=== PATIENT | female | born 1985 | race Caucasian/White ===

== ENCOUNTER 2016-04-13 21:28 | Emergency (ER) | payer SELFPAY ==
[~2016-04-13] VITALS: Ht 160 cm; Wt 104.3 kg
[~2016-04-13 21:28] MED LIST: ACET-704 PO; ALBU2.5V13 NEB; BENZ100C PO; CIPR500T PO; CITA20TA9 PO; DICY10CA53 PO; LEVO750T31 PO; LEVO75TA5 PO; NAPR250T2 PO; NAPR500T PO; NITR100C62 PO; ONDA4TAB10 SL; PHEN-318 PO; SULF1TAB24 PO; TRAM50TA PO
[2016-04-13] MEDS ORDERED: ONDANSETRON PF 4 MG/2 ML VIAL. IV ONE (23:00)
[2016-04-13] MEDS ORDERED: IV NORMAL SALINE 1000ML BAG 1,000 ML IV SCH (23:00)
[2016-04-13 23:03] LABS: BILIRUBIN,URINE NEGATIVE (NEG); GLUCOSE,URINE NEGATIVE (NEG); NITRITE,URINE NEGATIVE (NEG); PROTEIN,URINE NEGATIVE (NEG-TRACE); UROBILINOGEN,URINE 0.2 mg/dL (0.2 mg/dL)
[2016-04-13 23:04] LABS: NEG OBC UR NEG; POS OBC UR POS
[2016-04-13 23:24] LABS: BACTERIA,URINE MODERATE /HPF (0-FEW); RBC,URINE 0 /HPF (0-2); SQUAMOUS EPITHELIAL CELL,UR MOD /LPF; WBC,URINE 0 /HPF (0-4)
[2016-04-13 23:38] LABS: BASO % 0 % (0-3); EOS % 1 % (0-3); HEMATOCRIT 47.8 % (36.0-47.0); HEMOGLOBIN 15.7 g/dL (12.0-15.5); LYMPH # 2.6 x10^3/uL (1.0-4.8); LYMPH % 33 % (24-48); MEAN CORPUSCULAR HEMOGLOBIN 29 pg (25-35); MEAN CORPUSCULAR HGB CONC 33 g/dL (31-37); MEAN CORPUSCULAR VOLUME 89 fL (79-100); MONO % 6 % (0-9); NEUT % 60 % (31-73); PLATELET COUNT 272 x10^3/uL (140-400); RED BLOOD COUNT 5.39 x10^6/uL (3.50-5.40); RED CELL DISTRIBUTION WIDTH 13.5 % (11.5-14.5); WHITE BLOOD COUNT 7.8 x10^3/uL (4.0-11.0)
[2016-04-13] MEDS: FENTANYL PF 100 MCG/2 ML VIAL. IV PRN (23:45)
[2016-04-13 23:47] LABS: CALCIUM 9.4 mg/dL (8.5-10.1); CREATININE 0.6 mg/dL (0.6-1.0); GFR 118.2; POTASSIUM 3.6 mmol/L (3.5-5.1)
[2016-04-13 23:53] LABS: ALBUMIN 3.7 g/dL (3.4-5.0); ALBUMIN/GLOBULIN RATIO 0.9 (1.0-1.7); TOTAL BILIRUBIN 0.2 mg/dL (0.2-1.0); TOTAL PROTEIN 7.8 g/dL (6.4-8.2)
[2016-04-14] MEDS: FENTANYL PF 100 MCG/2 ML VIAL. IV PRN (00:31)
[2016-04-14] MEDS ORDERED: ONDA4TAB10 SL (00:37)
[2016-04-14] MEDS ORDERED: PRED20TA PO (00:37)
[2016-04-14] MEDS ORDERED: PROAIR HFA8.5 GM INH (00:37)
[2016-04-14] MEDS ORDERED: HYDR-971 PO (00:37)
--- NOTE | 2016-04-14 00:38 | PHYS DOC ---
Past Medical History Past Medical History: Anxiety, Asthma, Depression, Hypothyroid, Other Additional Past Medical Histor: IUD,right ankle fx, hernia, SEPSIS Past Surgical History: Cholecystectomy, Other Additional Past Surgical Histo: hernia, LYPOMA REMOVAL Smoking: Less than 1pk/day Alcohol Use: Rarely Drug Use: Marijuana Adult General Chief Complaint Chief Complaint: NAUSEA/VOMITING/DIARRHA HPI HPI Patient is a 30 year old female who presents with upper respiratory symptoms starting approximately one week ago. She had low-grade fever with sinus congestion and productive cough. She then developed nausea, vomiting, diarrhea, and abdominal pain approximately 3 days ago. She estimates 5 episodes of vomiting and had episodes of diarrhea and the last 24 hours. She has pain in the periumbilical region, and near her previous hernia repair site. She denies any shortness of breath or sore throat with her other symptoms. Her mother is ill with similar symptoms. Her PCP is Berry Burk. Review of Systems Review of Systems Constitutional: Reports low-grade fever Eyes: Denies change in visual acuity, redness, or eye pain. [] HENT: Denies ear pain or sore throat. Reports nasal congestion. Respiratory: Denies shortness of breath. Reports productive cough. Cardiovascular: Denies chest pain, palpitations or edema. [] GI: Denies bloody stools. Reports nausea, vomiting, diarrhea, and abdominal pain. : Denies dysuria, hematuria or urinary frequency. [] Musculoskeletal: Denies back pain or joint pain. [] Integument: Denies rash or skin lesions. [] Neurologic: Denies focal weakness or sensory changes. Reports frontal sinus headache. Endocrine: Denies polyuria or polydipsia. [] Psych: Denies anxiety or depression. [] All systems reviewed and negative unless otherwise stated in the HPI. Current Medications Current Medications Current Medications Medications (Trade) Dose Ordered Sig/Hermes Start Time Stop Time Status Last Admin Dose Admin Fentanyl Citrate (Fentanyl 2ml Vial) 50 mcg PRN Q15MIN PRN 04/13/16 23:45 04/14/16 23:44 04/14/16 00:31 50 MCG Ondansetron HCl (Zofran) 4 mg 1X ONCE 04/13/16 23:00 04/13/16 23:01 DC 04/13/16 23:18 4 MG Sodium Chloride (Iv Sodium Chloride 0.9% 1000ml Bag) 1,000 ml @ 1,000 mls/hr Q1H 04/13/16 23:00 04/13/16 23:59 DC 04/13/16 23:18 1,000 MLS/HR Allergies Allergies Allergies Coded Allergies Type Severity Reaction Last Updated Verified cephalexin Allergy Intermediate 11/23/14 No latex Allergy Intermediate 11/23/14 No Physical Exam Physical Exam Constitutional: Well developed, well nourished, no acute distress, non-toxic appearance. [] HENT: Normocephalic, atraumatic, bilateral external ears normal, oropharynx moist, no oral exudates, nose normal. Bilateral TMs without erythema or bulging. There is no posterior pharyngeal erythema or tonsillar edema. Bilateral nasal turbinates are swollen and erythematous. Eyes: PERRLA, EOMI, conjunctiva normal, no discharge. [] Neck: Normal range of motion, no tenderness, supple, no stridor. [] Cardiovascular: Heart rate regular rhythm, no murmur [] Lungs & Thorax: Mild expiratory wheezes in the lung bases without rales or rhonchi. Patient is not in respiratory distress. Abdomen: Bowel sounds normal, soft, periumbilical tenderness, no masses, no pulsatile masses. No hernia palpated. Skin: Warm, dry, no erythema, no rash. [] Back: No tenderness, no CVA tenderness. [] Extremities: No tenderness, no cyanosis, no clubbing, ROM intact, no edema. [] Neurologic: Alert and oriented X 3, normal motor function, normal sensory function, no focal deficits noted. [] Psychologic: Affect normal, judgement normal, mood normal. [] Current Patient Data Vital Signs Vital Signs Date Time Temp Pulse Resp B/P Pulse Ox O2 Delivery O2 Flow Rate FiO2 04/14/16 00:31 12 98 Room Air 04/13/16 21:50 98.3 87 168/79 98.3 Lab Values Laboratory Tests Test 04/13/16 21:42 04/13/16 23:15 Urine Collection Type Unknown Urine Color Yellow Urine Clarity Clear Urine pH 6.0 Urine Specific [place] 1.020 Urine Protein Negativemg/dL (NEG-TRACE) Urine Glucose (UA) Negativemg/dL (NEG) Urine Ketones (Stick) Negativemg/dL (NEG) Urine Blood Negative (NEG) Urine Nitrite Negative (NEG) Urine Bilirubin Negative (NEG) Urine Urobilinogen Dipstick 0.2mg/dL (0.2 mg/dL) Urine Leukocyte Esterase Negative (NEG) Urine RBC 0/HPF (0-2) Urine WBC 0/HPF (0-4) Urine Squamous Epithelial Cells Mod/LPF Urine Bacteria Moderate/HPF (0-FEW) Urine Mucus Mod/LPF Urine Test Negative (NEG) White Blood Count 7.8x10^3/uL (4.0-11.0) Red Blood Count 5.39x10^6/uL (3.50-5.40) Hemoglobin 15.7g/dL (12.0-15.5) H Hematocrit 47.8% (36.0-47.0) H Mean Corpuscular Volume 89fL (79-100) Mean Corpuscular Hemoglobin 29pg (25-35) Mean Corpuscular Hemoglobin Concent 33g/dL (31-37) Red Cell Distribution Width 13.5% (11.5-14.5) Platelet Count 272x10^3/uL (140-400) Neutrophils (%) (Auto) 60% (31-73) Lymphocytes (%) (Auto) 33% (24-48) Monocytes (%) (Auto) 6% (0-9) Eosinophils (%) (Auto) 1% (0-3) Basophils (%) (Auto) 0% (0-3) Neutrophils # (Auto) 4.7x10^3uL (1.8-7.7) Lymphocytes # (Auto) 2.6x10^3/uL (1.0-4.8) Monocytes # (Auto) 0.5x10^3/uL (0.0-1.1) Eosinophils # (Auto) 0.1x10^3/uL (0.0-0.7) Basophils # (Auto) 0.0x10^3/uL (0.0-0.2) Sodium Level 141mmol/L (136-145) Potassium Level 3.6mmol/L (3.5-5.1) Chloride Level 104mmol/L (98-107) Carbon Dioxide Level 28mmol/L (21-32) Anion Gap 9 (6-14) Blood Urea Nitrogen 15mg/dL (7-20) Creatinine 0.6mg/dL (0.6-1.0) Estimated GFR (Cockcroft-Gault) 118.2 BUN/Creatinine Ratio 25 (6-20) H Glucose Level 90mg/dL (70-99) Calcium Level 9.4mg/dL (8.5-10.1) Total Bilirubin 0.2mg/dL (0.2-1.0) Aspartate Amino Transferase (AST) 16U/L (15-37) Alanine Aminotransferase (ALT) 25U/L (14-59) Alkaline Phosphatase 71U/L (46-116) Total Protein 7.8g/dL (6.4-8.2) Albumin 3.7g/dL (3.4-5.0) Albumin/Globulin Ratio 0.9 (1.0-1.7) L Lipase 150U/L (73-393) Laboratory Tests 04/13/16 23:15 Laboratory Tests 04/13/16 23:15 EKG EKG [] Radiology/Procedures Radiology/Procedures Acute abdominal x-ray series reviewed and interpreted by myself with Dr. Prasad. There are no focal infiltrates in the lungs or evidence of obstruction in the abdomen. Course & Med Decision Making Course & Med Decision Making Pertinent Labs and Imaging studies reviewed. (See chart for details) Patient is a 30-year-old female who presents with upper respiratory symptoms followed by GI symptoms. On exam, she has mild wheezes in the lungs bilaterally in her abdomen is soft and nonsurgical with periumbilical tenderness. She has a history of periumbilical hernia repair with mesh. There is no palpable hernia on exam. There are no significant laboratory abnormalities. Acute abdomen x-ray does not show any focal infiltrates in the lungs or evidence of obstruction in the abdomen. The patient's symptoms improved with IV fluids, Zofran, and fentanyl. She is discharged home with prescriptions for prednisone, albuterol inhaler, Zofran, and [place]. She is instructed to increase fluids. We discussed eating according to the BRAT diet. Return precautions were discussed. She verbalizes understanding and agrees with plan. Dragon Disclaimer Dragon Disclaimer This electronic medical record was generated, in whole or in part, using a voice recognition dictation system. Departure Departure Impression: Primary Impression: Abdominal pain Additional Impressions: Bronchitis Viral syndrome Disposition: 01 HOME, SELF-CARE Condition: IMPROVED Referrals: BERRY BURK (PCP) Patient Instructions: Abdominal Pain, [id number], Acute Bronchitis, Easy-to- Read, Viral Syndrome Additional Instructions: Your xray and labs did not show any concerning findings. It appears that you have a viral illness causing your symptoms. Please complete all of the prescribed steroids, even if you are feeling better. Please use the prescribed inhaler as needed for cough or shortness of breath. Do not use more often than directed. Please take the prescribed pain medication as directed. Do not drive or operate heavy machinery while taking pain medication. Please follow up with a primary care provider if your symptoms continue. Return to the emergency department if you have severe abdominal pain, continued vomiting, blood in your stools, or other new or concerning symptoms. Scripts Ondansetron (Zofran Odt)4 Mg Tab.rapdis1 Tab SL Q8HRS #10 TAB Prov:ROCIO MALAGON 04/14/16 Hydrocodone/Apap 5-325 ([place] 5-325 Tablet)1 Each Tablet1 Tab PO PRN Q6HRS PRN PAIN #12 TAB Prov:ROCIO MALAGON 04/14/16 Prednisone 20 Mg [id number] Mg PO DAILY 5 Days Prov:ROCIO MALAGON 04/14/16 Albuterol Sulfate (Proair Hfa Inhaler)8.5 Gm Hfa.[id number].ad1 Puff INH Q4HRS PRN SHORTNESS OF BREATH #1 INHALER Prov:ROCIO MALAGON 04/14/16 Problem Qualifiers Primary Impression: Abdominal pain Abdominal location: periumbilical Qualified Code: R10.33 - Periumbilical pain ROCIO MALAGON Apr 14, 2016 00:38
[2016-04-14 00:42] VITALS: BP 128/56
--- NOTE | 2016-04-14 07:52 | RAD ---
Indication abdominal pain. Cough. A single view of the chest was obtained as well as flat and upright films of the abdomen. Comparison is made to a similar series of films 11/09/2015. The heart and pulmonary vessels appear normal. The lungs are clear. There is no pleural fluid or pneumothorax. The appearance of the chest is not changed appreciably compared to the previous exam. There is no free air. The abdominal gas pattern is unremarkable. Mesh material is noted as well as clips in the gallbladder fossa. IMPRESSION: No acute finding seen in the chest or abdomen on plain films
== END 2016-04-14 00:50 | disposition home or self-care (01) ==
LOC: ER 21:28
DX: R10.33 Periumbilical pain (principal); J40 Bronchitis, not specified as acute or chronic; B34.9 Viral infection, unspecified; R11.2 Nausea with vomiting, unspecified; R19.7 Diarrhea, unspecified; F41.9 Anxiety disorder, unspecified; J45.909 Unspecified asthma, uncomplicated; F32.9 Major depressive disorder, single episode, unspecified; E03.9 Hypothyroidism, unspecified; F17.210 Nicotine dependence, cigarettes, uncomplicated; F12.10 Cannabis abuse, uncomplicated; Z90.49 Acquired absence of other specified parts of digestive tract; Z88.1 Allergy status to other antibiotic agents; Z91.040 Latex allergy status
CPT/HCPCS: 36415; 74022; 80053; 81001; 81025; 83690; 85027; 87086; 96361; 96374; 96375; 96376; 99285; J2405; J3010; J7030

== ENCOUNTER 2016-05-24 20:32 | Emergency (ER) | payer SELFPAY ==
[~2016-05-24] VITALS: Ht 160 cm; Wt 106.6 kg
[~2016-05-24 20:32] MED LIST changes: -ALBU2.5V13 NEB; +ALBU2.5V14 NEB; +HYDR-971 PO; +PRED20TA PO; +PROAIR HFA8.5 GM INH
[2016-05-24] MEDS ORDERED: CYCLOBENZAPRINE 10 MG TABLET. PO ONE (20:45)
[2016-05-24 21:05] LABS: BILIRUBIN,URINE SMALL (NEG); GLUCOSE,URINE NEGATIVE (NEG); NITRITE,URINE NEGATIVE (NEG); PH,URINE 5.5; PROTEIN,URINE NEGATIVE (NEG-TRACE)
[2016-05-24 21:10] LABS: BACTERIA,URINE MANY /HPF (0-FEW); RBC,URINE 0 /HPF (0-2); SQUAMOUS EPITHELIAL CELL,UR MANY /LPF; WBC,URINE RARE /HPF (0-4)
--- NOTE | 2016-05-24 21:30 | PHYS DOC ---
Past Medical History Past Medical History: Anxiety, Asthma, Depression, Hypothyroid, Other Additional Past Medical Histor: IUD,right ankle fx, hernia, SEPSIS Past Surgical History: Cholecystectomy, Other Additional Past Surgical Histo: hernia, LYPOMA REMOVAL Alcohol Use: Occasionally Drug Use: Marijuana Adult General Chief Complaint Chief Complaint: ABDOMINAL PAIN HPI HPI 31-year-old female presents with abdominal pain after she pulled her dog and a cat apart from each other during a fight. She states this happened about an hour or so ago. She states the pain is moderate in nature. Sitting up from a lying position makes the symptoms worse. She denies any fever chills sweats nausea or vomiting. She states she is passing gas. She states the pain is around where she had a previous ventral hernia. [] Review of Systems Review of Systems Constitutional: Denies fever or chills [] Eyes: Denies change in visual acuity, redness, or eye pain [] HENT: Denies nasal congestion or sore throat [] Respiratory: Denies cough or shortness of breath [] Cardiovascular: No additional information not addressed in HPI [] GI: Per history of present illness [] : Denies dysuria or hematuria [] Musculoskeletal: Denies back pain or joint pain [] Integument: Denies rash or skin lesions [] Neurologic: Denies headache, focal weakness or sensory changes [] Endocrine: Denies polyuria or polydipsia [] Current Medications Current Medications Current Medications Medications (Trade) Dose Ordered Sig/Hermes Start Time Stop Time Status Last Admin Dose Admin Cyclobenzaprine HCl (Flexeril) 10 mg 1X ONCE 05/24/16 20:45 05/24/16 20:57 DC 05/24/16 21:05 10 MG Allergies Allergies Allergies Coded Allergies Type Severity Reaction Last Updated Verified cephalexin Allergy Intermediate 11/23/14 No latex Allergy Intermediate 11/23/14 No Physical Exam Physical Exam Constitutional: Well developed, well nourished, no acute distress, non-toxic appearance. [] HENT: Normocephalic, atraumatic, bilateral external ears normal, oropharynx moist, no oral exudates, nose normal. [] Eyes: PERRLA, EOMI, conjunctiva normal, no discharge. [] Neck: Normal range of motion, no tenderness, supple, no stridor. [] Cardiovascular:Heart rate regular rhythm, no murmur [] Lungs & Thorax: Bilateral breath sounds clear to auscultation [] Abdomen: Mild tender to palp no obvious hernia palpated good bowel sounds 4 quadrants. [] Skin: Warm, dry, no erythema, no rash. [] Back: No tenderness, no CVA tenderness. [] Extremities: No tenderness, no cyanosis, no clubbing, ROM intact, no edema. [] Neurologic: Alert and oriented X 3, normal motor function, normal sensory function, no focal deficits noted. [] Psychologic: Affect normal, judgement normal, mood normal. [] Current Patient Data Vital Signs Vital Signs Date Time Temp Pulse Resp B/P Pulse Ox O2 Delivery O2 Flow Rate FiO2 05/24/16 20:39 98.0 82 20 142/81 97 Room Air 98.0 Lab Values Laboratory Tests Test 05/24/16 20:50 05/24/16 20:59 Urine Collection Type Void Urine Color Dk yellow Urine Clarity Clear Urine pH 5.5 Urine Specific [place] >=1.030 Urine Protein Negativemg/dL (NEG-TRACE) Urine Glucose (UA) Negativemg/dL (NEG) Urine Ketones (Stick) Negativemg/dL (NEG) Urine Blood Negative (NEG) Urine Nitrite Negative (NEG) Urine Bilirubin Small (NEG) Urine Urobilinogen Dipstick 1.0mg/dL (0.2 mg/dL) Urine Leukocyte Esterase Negative (NEG) Urine RBC 0/HPF (0-2) Urine WBC Rare/HPF (0-4) Urine Squamous Epithelial Cells Many/LPF Urine Bacteria Many/HPF (0-FEW) Urine Mucus Marked/LPF POC Urine HCG, Qualitative Hcg negative (Negative) EKG EKG [] Radiology/Procedures Radiology/Procedures [] Impressions: PROCEDURE: ABDOMEN PELVIS WO CONTRAST CT abdomen and pelvis without contrast Indication: Right lower quadrant pain. Axial imaging through the abdomen and pelvis was performed without contrast. The lung bases are clear. The liver is unremarkable. The gallbladder is surgically absent. The pancreas and spleen are unremarkable. No adrenal mass is detected. The kidneys are unremarkable. The aorta is not aneurysmal. The small and large bowel loops are normal caliber. There are postop changes to the anterior abdominal wall, likely from hernia repair. No recurrent hernia is identified. There is no free fluid. No free air is identified. The bladder and uterus are unremarkable. No acute process is detected. Impression: Unremarkable noncontrast CT of the abdomen and pelvis. No acute abnormality is detected. Course & Med Decision Making Course & Med Decision Making Pertinent Labs and Imaging studies reviewed. (See chart for details) [] Dragon Disclaimer Dragon Disclaimer This electronic medical record was generated, in whole or in part, using a voice recognition dictation system. Departure Departure Impression: Primary Impression: Abdominal pain Disposition: HOME, SELF-CARE Condition: STABLE Referrals: LILLY NIELSON (PCP) Patient Instructions: Abdominal Pain Additional Instructions: Follow with your family doctor this week for recheck. Return to the emergency part with any new or concerning symptoms Scripts Cyclobenzaprine Hcl 10 Mg Tablet1 Tab PO TID PRN MUSCLE PAIN #14 TAB Prov:LAMONT MCDONALD DO 05/24/16 Problem Qualifiers Primary Impression: Abdominal pain Abdominal location: unspecified location Qualified Code: R10.9 - Unspecified abdominal pain LAMONT MCDONALD DO May 24, 2016 21:30
[2016-05-24 22:00] VITALS: BP 101/59
--- NOTE | 2016-05-24 22:05 | RAD ---
CT abdomen and pelvis without contrast Indication: Right lower quadrant pain. Axial imaging through the abdomen and pelvis was performed without contrast. The lung bases are clear. The liver is unremarkable. The gallbladder is surgically absent. The pancreas and spleen are unremarkable. No adrenal mass is detected. The kidneys are unremarkable. The aorta is not aneurysmal. The small and large bowel loops are normal caliber. There are postop changes to the anterior abdominal wall, likely from hernia repair. No recurrent hernia is identified. There is no free fluid. No free air is identified. The bladder and uterus are unremarkable. No acute process is detected. Impression: Unremarkable noncontrast CT of the abdomen and pelvis. No acute abnormality is detected. Electronically signed by: Matt Malik MD (May 24, 2016 22:04:03)
[2016-05-24] MEDS ORDERED: CYCL10TA2 PO (22:08)
== END 2016-05-24 22:20 | disposition home or self-care (01) ==
LOC: ER 20:32
DX: R10.31 Right lower quadrant pain (principal); E03.9 Hypothyroidism, unspecified; F32.9 Major depressive disorder, single episode, unspecified; J45.909 Unspecified asthma, uncomplicated; F41.9 Anxiety disorder, unspecified; F12.10 Cannabis abuse, uncomplicated; Z88.1 Allergy status to other antibiotic agents; Z91.040 Latex allergy status; Z98.890 Other specified postprocedural states; Z90.49 Acquired absence of other specified parts of digestive tract
CPT/HCPCS: 74176; 81001; 81025; 87086; 99285-25

== ENCOUNTER 2016-06-11 15:00 | Emergency (ER) | payer SELFPAY ==
[~2016-06-11] VITALS: Ht 160 cm; Wt 104.3 kg
[~2016-06-11 15:00] MED LIST changes: +CYCL10TA2 PO
--- NOTE | 2016-06-11 16:07 | PHYS DOC ---
Past Medical History Past Medical History: Anxiety, Asthma, Depression, Hypothyroid, Other Additional Past Medical Histor: IUD,right ankle fx, hernia, SEPSIS Past Surgical History: Cholecystectomy, Other Additional Past Surgical Histo: hernia, LYPOMA REMOVAL Additional Information: 0.5 PPD Alcohol Use: Occasionally Drug Use: Marijuana Adult General Chief Complaint Chief Complaint: KNEE INJURY [facility] HPI Patient is a 31 year old female who presents with complaint of low back pain and left knee pain after suffering a fall yesterday morning. Patient states that she had been drinking night and stop drinking at 0130 on Monday morning. Patient admits that she was drinking [employer] ice tea beverages. Patient states that she does not remember falling but was told that she " blacked out" by her father and brother. The patient states that she has been having pain in her low back, tailbone, and left knee ever since. Patient has been ambulatory but states that she has not been able to bear full weight on her knee due to pain. Patient currently rates her pain as 10 out of 10. Patient states that she has taken ibuprofen with no relief in symptoms. Patient denied any associated chest pain and has not had any syncopal episodes prior or since the previous episode. Review of Systems Review of Systems Constitutional: Denies fever or chills [] Eyes: Denies change in visual acuity, redness, or eye pain [] HENT: Denies nasal congestion or sore throat [] Respiratory: Denies cough or shortness of breath [] Cardiovascular: No additional information not addressed in HPI [] GI: Denies abdominal pain, nausea, vomiting, bloody stools or diarrhea [] : Denies dysuria or hematuria [] Musculoskeletal: Left knee pain, low back pain, tailbone pain [] Integument: Denies rash or skin lesions [] Neurologic: Headache, denies focal weakness or sensory changes [] Allergies Allergies Allergies Coded Allergies Type Severity Reaction Last Updated Verified cephalexin Allergy Intermediate 11/23/14 No latex Allergy Intermediate 11/23/14 No Physical Exam Physical Exam Constitutional: Alert, obese, afebrile, no acute distress. [] HENT: Normocephalic, atraumatic, bilateral external ears normal, oropharynx moist, no oral exudates, nose normal. [] Eyes: PERRLA, EOMI, conjunctiva normal, no discharge. [] Neck: Normal range of motion, no tenderness, supple, no stridor. [] Cardiovascular:Heart rate regular rhythm, no murmur [] Lungs & Thorax: Bilateral breath sounds clear to auscultation [] Abdomen: Bowel sounds normal, soft, no tenderness, no masses, no pulsatile masses. [] Skin: Warm, dry, no erythema, no rash. [] Back: Lower lumbar midline tenderness to palpation, mild paraspinous muscle tenderness bilaterally, no flank ecchymosis. [] Extremities: Anterior ecchymosis over left patella, no ligamentous instability, negative Britton test, full passive range of motion present, tenderness palpation over anterior joint space, no cyanosis, no clubbing, ROM intact, no edema. [] Neurologic: Alert and oriented X 3, normal motor function, normal sensory function, no focal deficits noted. [] Current Patient Data Vital Signs Vital Signs Date Time Temp Pulse Resp B/P Pulse Ox O2 Delivery O2 Flow Rate FiO2 06/11/16 16:51 82 16 117/62 99 06/11/16 15:05 97.5 Room Air 97.5 EKG EKG Not performed [] Radiology/Procedures Radiology/Procedures 3 view left knee x-ray interpreted by me: No fractures, normal alignment mild to moderate medial joint space narrowing 3 view lumbar series interpreted by me: Normal alignment, no fractures, normal soft tissue [] Course & Med Decision Making Course & Med Decision Making Pertinent Labs and Imaging studies reviewed. (See chart for details) Patient's x-rays negative for acute injury. The patient's syncopal episode likely due to alcohol intoxication that she admitted to. Patient will be treated with ibuprofen and Flexeril to be used at nighttime before bed. Advised follow-up in one week primary doctor if symptoms not improving and return to emergency department for any worsening symptoms. Patient voiced understanding and in agreement with treatment plan. Dragon Disclaimer Dragon Disclaimer This electronic medical record was generated, in whole or in part, using a voice recognition dictation system. Departure Departure Impression: Primary Impression: Contusion of left knee Additional Impression: Back pain Disposition: 01 HOME, SELF-CARE Condition: IMPROVED Referrals: LILLY NIELSON (PCP) Patient Instructions: Back Pain, Adult, Contusion Additional Instructions: Follow-up to primary doctor in 1 week. Return to the emergency department for any worsening symptoms. Scripts Cyclobenzaprine Hcl 10 Mg Tablet1 Tab PO QHS #15 TAB Prov:EUFEMIA LARA MD 06/11/16 Ibuprofen 600 Mg [id number] Mg PO Q6HRS PRN INFLAMMATION #30 TAB Prov:EUFEMIA LARA MD 06/11/16 Problem Qualifiers Primary Impression: Contusion of left knee Encounter type: initial encounter Qualified Code: S80.02XA - Contusion of left knee, initial encounter Additional Impression: Back pain Back pain location: low back pain Chronicity: acute Back pain laterality: midline Sciatica presence: without sciatica Qualified Code: M54.5 - Low back pain EUFEMIA LARA MD Jun 11, 2016 16:07
[2016-06-11] MEDS ORDERED: CYCL10TA2 PO (16:40)
[2016-06-11] MEDS ORDERED: IBUP-1007 PO (16:40)
[2016-06-11 16:51] VITALS: BP 117/62
--- NOTE | 2016-06-12 09:08 | RAD ---
Indication: Trauma, fall 2 days ago. Left-sided pain. Technique: 3 views of the left knee are submitted for review. No comparison is available. Findings: There is no fracture or dislocation. There is no joint effusion or soft tissue swelling. Impression: Negative for fracture.
--- NOTE | 2016-06-12 09:09 | RAD ---
Indication: Trauma, fall 2 days ago. Low back pain. Technique: 3 views of the lumbar spine are submitted for review. No comparison is available. Findings: There is no acute fracture or dislocation. Vertebral body height and interspace height are maintained. Postsurgical findings of hernia repair are noted. Impression: Negative for fracture.
== END 2016-06-11 16:52 | disposition home or self-care (01) ==
LOC: ER 15:00
DX: S80.02XA Contusion of left knee, initial encounter (principal); J45.909 Unspecified asthma, uncomplicated; E78.00 Pure hypercholesterolemia, unspecified; F17.200 Nicotine dependence, unspecified, uncomplicated; F12.10 Cannabis abuse, uncomplicated; Z88.1 Allergy status to other antibiotic agents; Z91.040 Latex allergy status; W19.XXXA Unspecified fall, initial encounter; Y93.89 Activity, other specified; Y99.8 Other external cause status; Y92.89 Other specified places as the place of occurrence of the external cause
CPT/HCPCS: 72100; 73562; 99284

== ENCOUNTER 2016-06-26 15:25 | Emergency (ER) | payer SELFPAY ==
[~2016-06-26] VITALS: Ht 160 cm; Wt 104.3 kg
[~2016-06-26 15:25] MED LIST changes: +IBUP-1007 PO
--- NOTE | 2016-06-26 16:02 | PHYS DOC ---
Past Medical History Past Medical History: Anxiety, Asthma, Depression, Hypothyroid, Other Additional Past Medical Histor: IUD,right ankle fx, hernia, SEPSIS Past Surgical History: Cholecystectomy, Other Additional Past Surgical Histo: hernia, LYPOMA REMOVAL Alcohol Use: Occasionally Drug Use: Marijuana Adult General Chief Complaint Chief Complaint: ANIMAL BITE HPI HPI Patient is a 31 year old female presents emergency Department today with complaint of a dog bite to her left thumb. Patient states this happened within the past hour. Patient states she was bitten by her own dog. Patient reports dose immunizations are up-to-date. She states that last tetanus shot was approximate 6 years ago for her. She denies any additional injuries or concerns at this time. Review of Systems Review of Systems Constitutional: Denies fever or chills [] Eyes: Denies change in visual acuity, redness, or eye pain [] HENT: Denies nasal congestion or sore throat [] Respiratory: Denies cough or shortness of breath [] Cardiovascular: No additional information not addressed in HPI [] GI: Denies abdominal pain, nausea, vomiting, bloody stools or diarrhea [] : Denies dysuria or hematuria [] Musculoskeletal: Denies back pain or joint pain [] Integument: Denies rash or skin lesions [] Neurologic: Denies headache, focal weakness or sensory changes [] Endocrine: Denies polyuria or polydipsia [] Current Medications Current Medications Current Medications Medications (Trade) Dose Ordered Sig/Hermes Start Time Stop Time Status Last Admin Dose Admin Acetaminophen/ Hydrocodone Bitart (Lortab 5/325) 1 tab 1X ONCE 06/26/16 16:30 06/26/16 16:31 Diphtheria/ Tetanus/Acell Pertussis (Boostrix) 0.5 ml ONCE ONCE 06/26/16 16:30 06/26/16 16:31 Allergies Allergies Allergies Coded Allergies Type Severity Reaction Last Updated Verified cephalexin Allergy Intermediate 11/23/14 No latex Allergy Intermediate 11/23/14 No Physical Exam Physical Exam Constitutional: Well developed, well nourished, mild distress, non-toxic appearance. HENT: Normocephalic, atraumatic, bilateral external ears normal, oropharynx moist, no oral exudates, nose normal. [] Eyes: PERRLA, EOMI, conjunctiva normal, no discharge. [] Neck: Normal range of motion, no tenderness, supple, no stridor. [] Cardiovascular:Heart rate regular rhythm, no murmur [] Lungs & Thorax: Bilateral breath sounds clear to auscultation [] Abdomen: Bowel sounds normal, soft, no tenderness, no masses, no pulsatile masses. [] Skin: Warm, dry, no erythema, no rash. [] Back: No tenderness, no CVA tenderness. [] Extremities: Left thumb with multiple small puncture wounds to the dorsum and palmar surface. This involves both the proximal distal phalanx. There is no active bleeding. Flexor and extensor mechanism is intact. Patient is also able to circumduct her thumb. There is no nail bed injuries. Thumb is neurovascularly intact with capillary refill less than 2 seconds. Neurologic: Alert and oriented X 3, normal motor function, normal sensory function, no focal deficits noted. [] Psychologic: Affect normal, judgement normal, mood normal. [] EKG EKG [] Radiology/Procedures Radiology/Procedures Reviews of left thumb were performed with adequate technique. There is no evidence of acute bony injury or retained radiopaque foreign bodies in the subcutaneous tissue. Course & Med Decision Making Course & Med Decision Making Pertinent Labs and Imaging studies reviewed. (See chart for details) [] Dragon Disclaimer Dragon Disclaimer This electronic medical record was generated, in whole or in part, using a voice recognition dictation system. Departure Departure Impression: Primary Impression: Dog bite of left thumb Disposition: HOME, SELF-CARE Condition: GOOD Referrals: LILLY NIELSON (PCP) Patient Instructions: Animal Bite, [id number], Diphtheria Toxoid; Tetanus Toxoid Adsorbed, DT, Td Additional Instructions: 1. Take the medication as prescribed. 2. Review the discharge instructions provided for self-care and reasons to return the emergency department. 3. Contact your primary care doctor Monday morning to schedule follow-up appointment for wound check by Monday or . Scripts Hydrocodone/Apap 5-325 ([place] 5-325 Tablet)1 Each Tablet1 Tab PO PRN Q6HRS PRN PAIN #15 TAB Ref 0 Prov:YOHANA LOWERY 06/26/16 Amoxicillin/Potassium Clav (Augmentin 875-125 Tablet)1 Each Tablet1 Tab PO BID # 14 TAB Prov:YOHANA LOWERY 4/2/17 Problem Qualifiers Primary Impression: Dog bite of left thumb Encounter type: initial encounter Qualified Code: S61.052A - Open bite of left thumb without damage to nail, initial encounter YOHANA LOWERY Jun 26, 2016 16:02
--- NOTE | 2016-06-26 16:23 | RAD ---
EXAM: Left thumb, 3 views. HISTORY: Laceration. COMPARISON: None. FINDINGS: Frontal, lateral and oblique views of the left thumb are obtained. There is no fracture, dislocation or subluxation. No foreign body is seen. IMPRESSION: No acute osseous finding no evidence of a radiodense foreign body.
[2016-06-26] MEDS ORDERED: AMOX1TAB61 PO (16:26)
[2016-06-26] MEDS ORDERED: HYDR-971 PO (16:26)
[2016-06-26] MEDS ORDERED: DIPHTH,PERTUSS(ACELL),TET TOX 0.5 ML DISP.SYRIN. VAX IM ONE (16:30)
[2016-06-26] MEDS ORDERED: HYDROCODONE/APAP 5/325MG TABLET. PO ONE (16:30)
[2016-06-26 16:32] VITALS: BP 144/79
== END 2016-06-26 17:23 | disposition home or self-care (01) ==
LOC: ER 15:25
DX: S61.052A Open bite of left thumb without damage to nail, initial encounter (principal); J45.909 Unspecified asthma, uncomplicated; E03.9 Hypothyroidism, unspecified; F12.10 Cannabis abuse, uncomplicated; Z88.1 Allergy status to other antibiotic agents; Z91.040 Latex allergy status; W54.0XXA Bitten by dog, initial encounter; Y93.89 Activity, other specified; Y92.89 Other specified places as the place of occurrence of the external cause; Y99.8 Other external cause status
CPT/HCPCS: 73140; 90471; 90715; 99284-25

== ENCOUNTER 2016-09-11 04:18 | Emergency (ER) | payer SELFPAY ==
[~2016-09-11] VITALS: Ht 160 cm; Wt 104.3 kg
[~2016-09-11 04:18] MED LIST changes: +AMOX1TAB61 PO
[2016-09-11 04:48] LABS: BASO % 1 % (0-3); EOS % 1 % (0-3); HEMATOCRIT 42.5 % (36.0-47.0); HEMOGLOBIN 14.2 g/dL (12.0-15.5); LYMPH # 1.8 x10^3/uL (1.0-4.8); LYMPH % 32 % (24-48); MEAN CORPUSCULAR HEMOGLOBIN 31 pg (25-35); MEAN CORPUSCULAR HGB CONC 34 g/dL (31-37); MEAN CORPUSCULAR VOLUME 91 fL (79-100); MONO % 7 % (0-9); NEUT % 60 % (31-73); PLATELET COUNT 228 x10^3/uL (140-400); RED BLOOD COUNT 4.65 x10^6/uL (3.50-5.40); RED CELL DISTRIBUTION WIDTH 14.5 % (11.5-14.5); WHITE BLOOD COUNT 5.7 x10^3/uL (4.0-11.0)
[2016-09-11 04:50] LABS: BILIRUBIN,URINE NEGATIVE (NEG); GLUCOSE,URINE NEGATIVE (NEG); NITRITE,URINE NEGATIVE (NEG); PH,URINE 7.5; PROTEIN,URINE NEGATIVE (NEG-TRACE); UROBILINOGEN,URINE 0.2 mg/dL (0.2 mg/dL)
[2016-09-11 04:57] LABS: CALCIUM 9.3 mg/dL (8.5-10.1); CREATININE 0.6 mg/dL (0.6-1.0); GFR 117.4; POTASSIUM 3.7 mmol/L (3.5-5.1)
[2016-09-11 04:57] LABS: BACTERIA,URINE 0 /HPF (0-FEW); RBC,URINE OCC /HPF (0-2); SQUAMOUS EPITHELIAL CELL,UR MANY /LPF; WBC,URINE 0 /HPF (0-4)
[2016-09-11] MEDS ORDERED: KETOROLAC TROMETHAMINE 30 MG/ML INJ. IV ONE (05:00)
[2016-09-11] MEDS ORDERED: KETOROLAC 15 MG/ML VIAL. IV ONE (05:00)
[2016-09-11] MEDS ORDERED: ONDANSETRON PF 4 MG/2 ML VIAL. IV ONE (05:00)
[2016-09-11 05:03] LABS: ALBUMIN 3.6 g/dL (3.4-5.0); ALBUMIN/GLOBULIN RATIO 0.9 (1.0-1.7); TOTAL BILIRUBIN 0.2 mg/dL (0.2-1.0); TOTAL PROTEIN 7.7 g/dL (6.4-8.2)
--- NOTE | 2016-09-11 05:43 | RAD ---
INDICATION: llq pain x few days COMPARISON: May 24, 2016 TECHNIQUE: Axial CT images were obtained through the abdomen and pelvis without intravenous contrast. Limited assessment of solid organ structures and vasculature secondary to lack of intravenous contrast. One or more of the following individualized dose reduction techniques were utilized for this examination: 1. Automated exposure control; 2. Adjustment of the mA and/or kV according to patient size; 3. Use of iterative reconstruction technique. FINDINGS: Abdomen: Chest Base: Partially imaged without gross abnormality. Vessels: No abdominal aortic aneurysm. Liver/Biliary: No intrahepatic biliary duct dilation. Pancreas: No peripancreatic edema. Spleen: Normal. Kidneys/Adrenal: No hydronephrosis. GI: No free air. No bowel dilation to suggest obstruction. Appendix does not appear grossly inflamed Pelvis: Bladder: No definite adjacent inflammation. Postoperative changes anterior abdominal wall. IMPRESSION: 1. No evidence of hydronephrosis, bowel obstruction or appendicitis. Electronically signed by: Braxton Carrero MD (09/11/2016 5:40 AM)
[2016-09-11] MEDS ORDERED: ONDA4TAB10 SL (05:51)
[2016-09-11] MEDS ORDERED: NAPR500T PO (05:51)
--- NOTE | 2016-09-11 05:51 | PHYS DOC ---
Past Medical History Past Medical History: Anxiety, Asthma, Depression, Hypothyroid, Other Additional Past Medical Histor: right ankle fx, hernia, SEPSIS Past Surgical History: Cholecystectomy, Other Additional Past Surgical Histo: hernia, LYPOMA REMOVAL Alcohol Use: Rarely Drug Use: Marijuana Adult General Chief Complaint Chief Complaint: ABDOMINAL PAIN HPI HPI Patient is a 31 year old female with a history significant for ovarian cysts is status post umbilical hernia repair in the past presents to the ER today complaining of left lower quadrant abdominal pain 1 day. Patient denies any fevers shakes chills nausea vomiting diarrhea chest pain or shortness of breath. Patient has a dysuria frequency or urgency. Patient has any cough cold runny nose. Patient reports the pain is cramping and feels very similar to the pain she had when she was diagnosed with an ovarian cyst approximately 2 years ago. Patient reports she is tolerating by mouth's well. Patient's physical exam was significant for tenderness to palpation to her left groin and left lower abdomen. Patient has no psoas or obturator signs. Patient has no rebound or guarding. Patient has normal active bowel sounds. Patient does not present with signs or symptoms that'll be consistent with an acute surgical abdomen. Patient's workup in the ER consisted of normal labs including a normal CBC CMP and urinalysis. Patient's CT scan of the abdomen pelvis were unremarkable for any acute pathology. Patient was given Toradol and Zofran in the ER with some relief in her discomfort. Assessment and plan A bowel pain of unclear etiology. Patient's clinically and hemodynamically stable. Patient will be discharged home in stable condition with a prescription for Naprosyn and Zofran to assist her with her pain. Patient does not present with an acute surgical abdomen. There is no indication for further ER for inpatient workup for this patient's abdominal discomfort at this time. Patient will need to follow-up with her primary care physician and the pain persists. Review of Systems Review of Systems Constitutional: Denies fever or chills [] Eyes: Denies change in visual acuity, redness, or eye pain [] HENT: Denies nasal congestion or sore throat [] All other review systems are negative except as documented in the history of present illness portion. Current Medications Current Medications Current Medications Medications (Trade) Dose Ordered Sig/Hermes Start Time Stop Time Status Last Admin Dose Admin Ketorolac Tromethamine (Toradol) 30 mg 1X ONCE 09/11/16 05:00 09/11/16 05:01 DC 09/11/16 05:08 30 MG Ondansetron HCl (Zofran) 4 mg 1X ONCE 09/11/16 05:00 09/11/16 05:01 DC 09/11/16 05:08 4 MG Allergies Allergies Allergies Coded Allergies Type Severity Reaction Last Updated Verified cephalexin Allergy Intermediate 11/23/14 No latex Allergy Intermediate 11/23/14 No Physical Exam Physical Exam Constitutional: Well developed, well nourished, no acute distress, non-toxic appearance. [] HENT: Normocephalic, atraumatic, bilateral external ears normal, oropharynx moist, no oral exudates, nose normal. [] Eyes: PERRLA, EOMI, conjunctiva normal, no discharge. [] Neck: Normal range of motion, no tenderness, supple, no stridor. [] Cardiovascular:Heart rate regular rhythm, no murmur [] Lungs & Thorax: Bilateral breath sounds clear to auscultation [] Abdomen: Bowel sounds normal, soft,llq tenderness, no masses, no pulsatile masses. [] Skin: Warm, dry, no erythema, no rash. [] Back: No tenderness, no CVA tenderness. [] Extremities: No tenderness, no cyanosis, no clubbing, ROM intact, no edema. [] Neurologic: Alert and oriented X 3, normal motor function, normal sensory function, no focal deficits noted. [] Psychologic: Affect normal, judgement normal, mood normal. [] Current Patient Data Vital Signs Vital Signs Date Time Temp Pulse Resp B/P (MAP) Pulse Ox O2 Delivery O2 Flow Rate FiO2 09/11/16 04:30 98.0 72 20 154/90 (111) 96 Room Air 98.0 Lab Values Laboratory Tests Test 09/11/16 03:39 09/11/16 04:30 09/11/16 04:35 POC Urine HCG, Qualitative Hcg negative (Negative) Urine Collection Type Unknown Urine Color Yellow Urine Clarity Clear Urine pH 7.5 Urine Specific [place] 1.010 Urine Protein Negative mg/dL (NEG-TRACE) Urine Glucose (UA) Negative mg/dL (NEG) Urine Ketones (Stick) Negative mg/dL (NEG) Urine Blood Negative (NEG) Urine Nitrite Negative (NEG) Urine Bilirubin Negative (NEG) Urine Urobilinogen Dipstick 0.2 mg/dL (0.2 mg/dL) Urine Leukocyte Esterase Negative (NEG) Urine RBC Occ /HPF (0-2) Urine WBC 0 /HPF (0-4) Urine Squamous Epithelial Cells Many /LPF Urine Amorphous Sediment Present /HPF Urine Bacteria 0 /HPF (0-FEW) White Blood Count 5.7 x10^3/uL (4.0-11.0) Red Blood Count 4.65 x10^6/uL (3.50-5.40) Hemoglobin 14.2 g/dL (12.0-15.5) Hematocrit 42.5 % (36.0-47.0) Mean Corpuscular Volume 91 fL (79-100) Mean Corpuscular Hemoglobin 31 pg (25-35) Mean Corpuscular Hemoglobin Concent 34 g/dL (31-37) Red Cell Distribution Width 14.5 % (11.5-14.5) Platelet Count 228 x10^3/uL (140-400) Neutrophils (%) (Auto) 60 % (31-73) Lymphocytes (%) (Auto) 32 % (24-48) Monocytes (%) (Auto) 7 % (0-9) Eosinophils (%) (Auto) 1 % (0-3) Basophils (%) (Auto) 1 % (0-3) Neutrophils # (Auto) 3.5 x10^3uL (1.8-7.7) Lymphocytes # (Auto) 1.8 x10^3/uL (1.0-4.8) Monocytes # (Auto) 0.4 x10^3/uL (0.0-1.1) Eosinophils # (Auto) 0.0 x10^3/uL (0.0-0.7) Basophils # (Auto) 0.0 x10^3/uL (0.0-0.2) Sodium Level 141 mmol/L (136-145) Potassium Level 3.7 mmol/L (3.5-5.1) Chloride Level 104 mmol/L (98-107) Carbon Dioxide Level 26 mmol/L (21-32) Anion Gap 11 (6-14) Blood Urea Nitrogen 12 mg/dL (7-20) Creatinine 0.6 mg/dL (0.6-1.0) Estimated GFR (Cockcroft-Gault) 117.4 BUN/Creatinine Ratio 20 (6-20) Glucose Level 104 mg/dL (70-99) H Calcium Level 9.3 mg/dL (8.5-10.1) Total Bilirubin 0.2 mg/dL (0.2-1.0) Aspartate Amino Transferase (AST) 23 U/L (15-37) Alanine Aminotransferase (ALT) 33 U/L (14-59) Alkaline Phosphatase 73 U/L (46-116) Total Protein 7.7 g/dL (6.4-8.2) Albumin 3.6 g/dL (3.4-5.0) Albumin/Globulin Ratio 0.9 (1.0-1.7) L Laboratory Tests 09/11/16 04:35 Laboratory Tests 09/11/16 04:35 EKG EKG [] Radiology/Procedures Radiology/Procedures [] Course & Med Decision Making Course & Med Decision Making Pertinent Labs and Imaging studies reviewed. (See chart for details) [] Dragon Disclaimer Dragon Disclaimer This electronic medical record was generated, in whole or in part, using a voice recognition dictation system. Departure Departure Impression: Primary Impression: Abdominal pain Disposition: HOME, SELF-CARE Condition: IMPROVED Referrals: LILLY NIELSON (PCP) Patient Instructions: Abdominal Pain (Nonspecific) Scripts Ondansetron (ZOFRAN ODT) 4 Mg Tab.rapdis 1 TAB SL Q6HRS Y for NAUSEA, #12 TAB Prov: IVIS VEGA MD 09/11/16 Naproxen (NAPROSYN) 500 Mg Tablet 500 MG PO BID, #20 TAB Prov: IVIS VEGA MD 09/11/16 IVIS VEGA MD Sep 11, 2016 05:51
[2016-09-11 05:59] VITALS: BP 111/55
== END 2016-09-11 06:00 | disposition home or self-care (01) ==
LOC: ER 04:18
DX: R10.32 Left lower quadrant pain (principal); E03.9 Hypothyroidism, unspecified; F32.9 Major depressive disorder, single episode, unspecified; F41.9 Anxiety disorder, unspecified; J45.909 Unspecified asthma, uncomplicated; F12.10 Cannabis abuse, uncomplicated; Z90.49 Acquired absence of other specified parts of digestive tract; Z91.040 Latex allergy status; Z88.8 Allergy status to other drugs, medicaments and biological substances
CPT/HCPCS: 36415; 74176; 80053; 81001; 81025; 85027; 96374; 96375; 99285; J1885; J2405

== ENCOUNTER 2016-09-28 05:08 | Emergency (ER) | payer SELFPAY ==
[~2016-09-28] VITALS: Ht 167.6 cm; Wt 104.3 kg
[2016-09-28 05:10] VITALS: BP 134/75
[2016-09-28] MEDS ORDERED: ONDANSETRON PF 4 MG/2 ML VIAL. ONE (05:38)
[2016-09-28] MEDS ORDERED: ONDANSETRON PF 4 MG/2 ML VIAL. IV ONE (06:00)
[2016-09-28] MEDS ORDERED: IV NORMAL SALINE 1000ML BAG 1,000 ML IV ONE (06:00)
--- NOTE | 2016-09-28 07:23 | PHYS DOC ---
Past Medical History Past Medical History: Anxiety, Asthma, Depression, Hypothyroid, Other Additional Past Medical Histor: right ankle fx, hernia, SEPSIS Past Surgical History: Cholecystectomy, Other Additional Past Surgical Histo: hernia, LYPOMA REMOVAL Alcohol Use: Rarely Drug Use: Marijuana Adult General Chief Complaint Chief Complaint: GI PROBLEM HPI HPI 31-year-old female presenting to the emergency department today feeling nauseous. She denies any other symptoms. She has been drinking last night. She denies suicidal or homicidal ideation. She is able to walk without difficulty and is not slurring her speech. Onset today. Location generalized. Duration intermittent. No alleviating factors. Review of systems is negative for chest pain shortness of breath fevers chills vomiting dark stools abdominal pain rashes or any traumatic injuries. All other review of systems is negative unless otherwise noted in history of present illness. ED course: 31-year-old female presenting to the emergency department with nausea after drinking. Reviewed the patient's vital signs: Afebrile with normal heart rate. Unremarkable vital signs. Pertinent physical exam findings showed a soft nontender abdomen. Clear lungs auscultation. Normal heart sounds. Otherwise completely unremarkable. The patient was able to walk without difficulty and was not slurring her speech. She is not homicidal or suicidal and was subsequently discharged home. The patient was then discharged home in stable condition to follow up with their primary care physician over the next 2- 3 days. They were to return if their symptoms worsened or if they were concerned for any reason. [id number] discharge instructions and return precautions were given. Patient's questions were answered to their satisfaction. Patient is comfortable plan. Review of Systems Review of Systems SEE ABOVE. Current Medications Current Medications Current Medications Medications (Trade) Dose Ordered Sig/Hermes Start Time Stop Time Status Last Admin Dose Admin Ondansetron HCl (Zofran) 4 mg 1X ONCE 09/28/16 06:00 09/28/16 06:01 DC 09/28/16 05:53 4 MG Sodium Chloride 1,000 ml @ 1,000 mls/hr 1X ONCE 09/28/16 06:00 09/28/16 06:59 DC 09/28/16 05:53 1,000 MLS/HR Allergies Allergies Allergies Coded Allergies Type Severity Reaction Last Updated Verified cephalexin Allergy Intermediate 11/23/14 No latex Allergy Intermediate 11/23/14 No Physical Exam Physical Exam Constitutional: Well developed, well nourished, no acute distress, non-toxic appearance. [] HENT: Normocephalic, atraumatic, bilateral external ears normal, oropharynx moist, no oral exudates, nose normal. [] Eyes: PERRLA, EOMI, conjunctiva normal, no discharge. [] Neck: Normal range of motion, no tenderness, supple, no stridor. [] Cardiovascular:Heart rate regular rhythm, no murmur [] Lungs & Thorax: Bilateral breath sounds clear to auscultation [] Abdomen: Bowel sounds normal, soft, no tenderness, no masses, no pulsatile masses. [] Skin: Warm, dry, no erythema, no rash. [] Back: No tenderness, no CVA tenderness. [] Extremities: No tenderness, no cyanosis, no clubbing, ROM intact, no edema. [] Neurologic: Alert and oriented X 3, normal motor function, normal sensory function, no focal deficits noted. [] Psychologic: Affect normal, judgement normal, mood normal. [] Current Patient Data Vital Signs Vital Signs Date Time Temp Pulse Resp B/P (MAP) Pulse Ox O2 Delivery O2 Flow Rate FiO2 09/28/16 05:10 98.5 84 20 134/75 (94) 99 Room Air 98.5 EKG EKG [] Radiology/Procedures Radiology/Procedures [] Course & Med Decision Making Course & Med Decision Making Pertinent Labs and Imaging studies reviewed. (See chart for details) [] Dragon Disclaimer Dragon Disclaimer This electronic medical record was generated, in whole or in part, using a voice recognition dictation system. Departure Departure Impression: Primary Impression: Nausea Disposition: 01 HOME, SELF-CARE Condition: STABLE Referrals: LILLY INELSON (PCP) Patient Instructions: Nausea, Adult Additional Instructions: Thank you for allowing us to participate in your care today. Followup with your primary care physician in 3 days if your symptoms do not improve. Call your Primary Doctor tomorrow and inform them of your visit today. If you do not have a primary care provider you can ask for a list of our primary care providers. Return to the emergency department you have any new or concerning findings. This should be evaluated by the primary care physician and any necessary consulting services for continued management within a few days after discharge. Return to emergency room if you have any new or concerning symptoms including but not limited to fever, chills, nausea, vomiting, intractable pain, any new rashes, chest pain, shortness of air, uncontrolled bleeding, difficulty breathing, and/or vision loss. RENEA LARSEN MD Sep 28, 2016 07:22
== END 2016-09-28 07:33 | disposition home or self-care (01) ==
LOC: ER 05:08
DX: R11.0 Nausea (principal); J45.909 Unspecified asthma, uncomplicated; E03.9 Hypothyroidism, unspecified; F32.9 Major depressive disorder, single episode, unspecified; F41.9 Anxiety disorder, unspecified; F12.10 Cannabis abuse, uncomplicated; Z90.49 Acquired absence of other specified parts of digestive tract; Z98.890 Other specified postprocedural states; Z88.1 Allergy status to other antibiotic agents; Z91.040 Latex allergy status
CPT/HCPCS: 81025; 96361; 96374; 99285; J2405; J7030

== ENCOUNTER 2016-12-08 21:59 | Emergency (ER) | payer SELFPAY ==
[~2016-12-08] VITALS: Ht 160 cm; Wt 108.9 kg
[~2016-12-08 21:59] MED LIST changes: -NAPR250T2 PO; +NAPR250T6 PO
[2016-12-08 22:17] LABS: BILIRUBIN,URINE NEGATIVE (NEG); GLUCOSE,URINE NEGATIVE (NEG); NITRITE,URINE NEGATIVE (NEG); PH,URINE 5.5; PROTEIN,URINE NEGATIVE (NEG-TRACE); UROBILINOGEN,URINE 0.2 mg/dL (0.2 mg/dL)
[2016-12-08 22:23] LABS: BASO % 1 % (0-3); EOS % 1 % (0-3); HEMATOCRIT 42.4 % (36.0-47.0); HEMOGLOBIN 14.3 g/dL (12.0-15.5); LYMPH # 1.5 x10^3/uL (1.0-4.8); LYMPH % 26 % (24-48); MEAN CORPUSCULAR HEMOGLOBIN 31 pg (25-35); MEAN CORPUSCULAR HGB CONC 34 g/dL (31-37); MEAN CORPUSCULAR VOLUME 92 fL (79-100); MONO % 6 % (0-9); NEUT % 67 % (31-73); PLATELET COUNT 212 x10^3/uL (140-400); RED BLOOD COUNT 4.59 x10^6/uL (3.50-5.40); RED CELL DISTRIBUTION WIDTH 13.9 % (11.5-14.5); WHITE BLOOD COUNT 5.8 x10^3/uL (4.0-11.0)
[2016-12-08 22:30] VITALS: BP 130/58
[2016-12-08] MEDS ORDERED: HYDROmorphone 2 MG/ML VIAL IV/SQ PRN (22:30)
[2016-12-08 22:32] LABS: CALCIUM 9.2 mg/dL (8.5-10.1); CREATININE 0.5 mg/dL (0.6-1.0); GFR 144.9; POTASSIUM 3.4 mmol/L (3.5-5.1)
[2016-12-08 22:39] LABS: BACTERIA,URINE FEW /HPF (0-FEW); RBC,URINE 0 /HPF (0-2); SQUAMOUS EPITHELIAL CELL,UR MOD /LPF; WBC,URINE OCC /HPF (0-4)
[2016-12-08 22:41] LABS: NEG OBC FOB NEG; POS OBC FOB POS
[2016-12-08] MEDS ORDERED: ONDA4TAB10 SL (22:50)
[2016-12-08] MEDS ORDERED: HYDR-2758 PO (22:50)
--- NOTE | 2016-12-08 22:50 | PHYS DOC ---
Past Medical History Past Medical History: Anxiety, Asthma, Depression, Hypothyroid, Other Additional Past Medical Histor: right ankle fx, hernia, SEPSIS Past Surgical History: Cholecystectomy, Other Additional Past Surgical Histo: hernia, LYPOMA REMOVAL Alcohol Use: Rarely Drug Use: Marijuana Adult General Chief Complaint Chief Complaint: ABDOMINAL PAIN HPI HPI 31-year-old female presenting to the emergency department with epigastric abdominal pain with nausea and vomiting. Started about 2-3 days ago. Her pain is moderate intermittent nonradiating and without alleviating factors. She denies any blood in her vomit however has had bright red blood in her stools twice. She denies fevers chills. Review of systems is negative for chest pain shortness of breath cough. Positive for nausea vomiting. All other review of systems is negative unless otherwise noted in history of present illness. ED course: 31-year-old female presenting to the emergency department today with nausea vomiting abdominal pain with reported blood in her stool at home. Triage vital signs. Pertinent physical examination findings show a soft nontender abdomen without rebound tenderness or guarding present. Negative McBurneys point. Negative Dutta sign. No ecchymosis present. The remainder the examination is unremarkable. IV established, fluids and pain medication ordered. Blood work obtained. I reviewed the patient's previous medical records it appears that she's had multiple CTs over the past 2 years. Based on my physical examination, I do not believe that a CT the abdomen pelvis is appropriate in this case. Risk-benefit decision making and discussion had with the patient. Blood work obtained which showed mildly low potassium otherwise unremarkable. Repeat abdominal exam continues show a soft nontender abdomen. On reexamination she is feeling better and subsequently was discharged home. The patient was then discharged home in stable condition to follow up with their primary care physician over the next 2-3 days. They were to return if their symptoms worsened or if they were concerned for any reason. [id number] discharge instructions and return precautions were given. Patient's questions were answered to their satisfaction. Patient is comfortable plan. Review of Systems Review of Systems SEE ABOVE. Current Medications Current Medications Current Medications Medications (Trade) Dose Ordered Sig/Hermes Start Time Stop Time Status Last Admin Dose Admin Hydromorphone HCl (Dilaudid) 0.5 mg PRN Q15MIN PRN 12/08/16 22:30 12/09/16 22:29 12/08/16 22:45 0.5 MG Ondansetron HCl (Zofran) 4 mg 1X ONCE 12/08/16 23:00 12/08/16 23:01 DC 12/08/16 22:45 4 MG Sodium Chloride 1,000 ml @ 1,000 mls/hr Q1H 12/08/16 23:00 12/08/16 23:59 12/08/16 22:44 1,000 MLS/HR Allergies Allergies Allergies Coded Allergies Type Severity Reaction Last Updated Verified cephalexin Allergy Intermediate 11/23/14 No latex Allergy Intermediate 11/23/14 No Physical Exam Physical Exam SEE ABOVE Constitutional: Well developed, well nourished, no acute distress, non-toxic appearance. [] HENT: Normocephalic, atraumatic, bilateral external ears normal, oropharynx moist, no oral exudates, nose normal. [] Eyes: PERRLA, EOMI, conjunctiva normal, no discharge. [] Neck: Normal range of motion, no tenderness, supple, no stridor. [] Cardiovascular:Heart rate regular rhythm, no murmur [] Lungs & Thorax: Bilateral breath sounds clear to auscultation [] Abdomen: Bowel sounds normal, soft, no tenderness, no masses, no pulsatile masses. [] Skin: Warm, dry, no erythema, no rash. [] Back: No tenderness, no CVA tenderness. [] Extremities: No tenderness, no cyanosis, no clubbing, ROM intact, no edema. [] Neurologic: Alert and oriented X 3, normal motor function, normal sensory function, no focal deficits noted. [] Psychologic: Affect normal, judgement normal, mood normal. [] Current Patient Data Vital Signs Vital Signs Date Time Temp Pulse Resp B/P (MAP) Pulse Ox O2 Delivery O2 Flow Rate FiO2 12/08/16 22:45 20 99 Room Air 12/08/16 22:30 86 130/58 (82) 12/08/16 22:10 98.1 98.1 Lab Values Laboratory Tests Test 12/08/16 22:10 12/08/16 22:15 12/08/16 22:20 Urine Collection Type Unknown Urine Color Yellow Urine Clarity Cloudy Urine pH 5.5 Urine Specific [place] 1.025 Urine Protein Negative mg/dL (NEG-TRACE) Urine Glucose (UA) Negative mg/dL (NEG) Urine Ketones (Stick) Negative mg/dL (NEG) Urine Blood Negative (NEG) Urine Nitrite Negative (NEG) Urine Bilirubin Negative (NEG) Urine Urobilinogen Dipstick 0.2 mg/dL (0.2 mg/dL) Urine Leukocyte Esterase Negative (NEG) Urine RBC 0 /HPF (0-2) Urine WBC Occ /HPF (0-4) Urine Squamous Epithelial Cells Mod /LPF Urine Bacteria Few /HPF (0-FEW) Urine Mucus Mod /LPF POC Urine HCG, Qualitative Hcg negative (Negative) White Blood Count 5.8 x10^3/uL (4.0-11.0) Red Blood Count 4.59 x10^6/uL (3.50-5.40) Hemoglobin 14.3 g/dL (12.0-15.5) Hematocrit 42.4 % (36.0-47.0) Mean Corpuscular Volume 92 fL (79-100) Mean Corpuscular Hemoglobin 31 pg (25-35) Mean Corpuscular Hemoglobin Concent 34 g/dL (31-37) Red Cell Distribution Width 13.9 % (11.5-14.5) Platelet Count 212 x10^3/uL (140-400) Neutrophils (%) (Auto) 67 % (31-73) Lymphocytes (%) (Auto) 26 % (24-48) Monocytes (%) (Auto) 6 % (0-9) Eosinophils (%) (Auto) 1 % (0-3) Basophils (%) (Auto) 1 % (0-3) Neutrophils # (Auto) 3.8 x10^3uL (1.8-7.7) Lymphocytes # (Auto) 1.5 x10^3/uL (1.0-4.8) Monocytes # (Auto) 0.4 x10^3/uL (0.0-1.1) Eosinophils # (Auto) 0.0 x10^3/uL (0.0-0.7) Basophils # (Auto) 0.0 x10^3/uL (0.0-0.2) Sodium Level 140 mmol/L (136-145) Potassium Level 3.4 mmol/L (3.5-5.1) L Chloride Level 107 mmol/L (98-107) Carbon Dioxide Level 26 mmol/L (21-32) Anion Gap 7 (6-14) Blood Urea Nitrogen 13 mg/dL (7-20) Creatinine 0.5 mg/dL (0.6-1.0) L Estimated GFR (Cockcroft-Gault) 144.9 BUN/Creatinine Ratio 26 (6-20) H Glucose Level 101 mg/dL (70-99) H Calcium Level 9.2 mg/dL (8.5-10.1) Total Bilirubin 0.1 mg/dL (0.2-1.0) L Aspartate Amino Transferase (AST) 15 U/L (15-37) Alanine Aminotransferase (ALT) 46 U/L (14-59) Alkaline Phosphatase 74 U/L (46-116) Total Protein 7.3 g/dL (6.4-8.2) Albumin 3.5 g/dL (3.4-5.0) Albumin/Globulin Ratio 0.9 (1.0-1.7) L Lipase 130 U/L (73-393) Stool Occult Blood Negative (NEG) Laboratory Tests 12/08/16 22:15 Laboratory Tests 12/08/16 22:15 EKG EKG [] Radiology/Procedures Radiology/Procedures [] Course & Med Decision Making Course & Med Decision Making Pertinent Labs and Imaging studies reviewed. (See chart for details) [] Dragon Disclaimer Dragon Disclaimer This electronic medical record was generated, in whole or in part, using a voice recognition dictation system. Departure Departure Impression: Primary Impression: Abdominal pain Disposition: 01 HOME, SELF-CARE Condition: STABLE Referrals: LILLY NIELSON (PCP) Patient Instructions: Abdominal Pain Additional Instructions: Thank you for allowing us to participate in your care today. Followup with your primary care physician in 3 days if your symptoms do not improve. Call your Primary Doctor tomorrow and inform them of your visit today. If you do not have a primary care provider you can ask for a list of our primary care providers. Return to the emergency department you have any new or concerning findings. This should be evaluated by the primary care physician and any necessary consulting services for continued management within a few days after discharge. Return to emergency room if you have any new or concerning symptoms including but not limited to fever, chills, nausea, vomiting, intractable pain, any new rashes, chest pain, shortness of air, uncontrolled bleeding, difficulty breathing, and/or vision loss. You may have been prescribed medication that can change in your level of thinking and ability to operate machinery. These medications include hydrocodone and Ativan. Also, Benadryl has been known to do this as well. Be sure to check with your pharmacist and ask if the medications you've prescribed can affect your level of consciousness. I recommend not operating heavy machinery or driving while on medication such as these. Scripts Ondansetron (ZOFRAN ODT) 4 Mg Tab.rapdis 1 TAB SL PRN Q8HRS Y for NAUSEA, #6 TAB Prov: RENEA LARSEN MD 12/08/16 Hydrocodone Bit/Acetaminophen (HYDROCODONE-APAP 5-325 ) 1 Each Tablet 1 TAB PO PRN Q6HRS Y for PAIN, #15 TAB 0 Refills Be careful as this medication may cause you to be drowsy or tired. Do not drive on this medication. Prov: RENEA LARSEN MD 12/08/16 RENEA LARSEN MD Dec 08, 2016 22:50
[2016-12-08 22:51] LABS: ALBUMIN 3.5 g/dL (3.4-5.0); ALBUMIN/GLOBULIN RATIO 0.9 (1.0-1.7); TOTAL BILIRUBIN 0.1 mg/dL (0.2-1.0); TOTAL PROTEIN 7.3 g/dL (6.4-8.2)
[2016-12-08] MEDS ORDERED: ONDANSETRON PF 4 MG/2 ML VIAL. IV ONE (23:00)
[2016-12-08] MEDS ORDERED: IV NORMAL SALINE 1000ML BAG 1,000 ML IV SCH (23:00)
== END 2016-12-08 23:15 | disposition home or self-care (01) ==
LOC: ER 21:59
DX: R10.13 Epigastric pain (principal); R11.2 Nausea with vomiting, unspecified; K92.1 Melena; F41.9 Anxiety disorder, unspecified; J45.909 Unspecified asthma, uncomplicated; F32.9 Major depressive disorder, single episode, unspecified; E03.9 Hypothyroidism, unspecified; Z88.1 Allergy status to other antibiotic agents; Z91.040 Latex allergy status; Z90.49 Acquired absence of other specified parts of digestive tract
CPT/HCPCS: 36415; 80053; 81001; 81025; 82274; 83690; 85025; 96361; 96374; 96375; 99284; J1170; J2405; J7030

== ENCOUNTER 2016-12-21 04:09 | Emergency (ER) | payer SELFPAY ==
[~2016-12-21] VITALS: Ht 160 cm; Wt 104.3 kg
[~2016-12-21 04:09] MED LIST changes: +HYDR-2758 PO
--- NOTE | 2016-12-21 04:26 | PHYS DOC ---
Past Medical History Past Medical History: Anxiety, Asthma, Depression, Hypothyroid, Other Additional Past Medical Histor: right ankle fx, hernia, SEPSIS Past Surgical History: Cholecystectomy, Other Additional Past Surgical Histo: hernia, LYPOMA REMOVAL Alcohol Use: Rarely Drug Use: Marijuana Adult General Chief Complaint Chief Complaint: HEADACHE HPI HPI Patient is a 31 year old F who presents with migraine headache. Patient states she went to bed with a slight headache and woke up around 3 AM with a severe migraine headache and nausea and vomiting. 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 Patient denies any fevers. Patient has slight sensitivity to light. Patient has no other complaints. Review of Systems Review of Systems GEN: Denies fevers, chills, sweats HEENT: Denies blurred vision, sore throat CV: Denies chest pain RESP: Denies shortness of air, cough GI: Nausea and vomiting NEURO: Headache MSK: Denies weakness, joint pain/swelling Current Medications Current Medications Current Medications Medications (Trade) Dose Ordered Sig/Hermes Start Time Stop Time Status Last Admin Dose Admin Dexamethasone Sodium Phosphate (Decadron) 10 mg 1X ONCE 12/21/16 04:30 12/21/16 04:31 DC 12/21/16 04:42 10 MG Diphenhydramine HCl (Benadryl) 50 mg 1X ONCE 12/21/16 04:30 12/21/16 04:31 DC 12/21/16 04:42 50 MG Ketorolac Tromethamine (Toradol) 30 mg 1X ONCE 12/21/16 04:30 12/21/16 04:31 DC 12/21/16 04:41 30 MG Magnesium Sulfate/ Dextrose 50 ml @ 25 mls/hr 1X ONCE 12/21/16 04:45 12/21/16 06:44 12/21/16 04:43 25 MLS/HR Metoclopramide HCl (Reglan) 10 mg 1X ONCE 12/21/16 04:30 12/21/16 04:31 DC 12/21/16 04:42 10 MG Sodium Chloride 1,000 ml @ 1,000 mls/hr 1X ONCE 12/21/16 04:30 12/21/16 05:29 12/21/16 04:30 1,000 MLS/HR Allergies Allergies Allergies Coded Allergies Type Severity Reaction Last Updated Verified cephalexin Allergy Intermediate 11/23/14 No latex Allergy Intermediate 11/23/14 No Physical Exam Physical Exam GEN.: Mild distress. Alert and oriented. HEENT: Head is normocephalic, atraumatic NECK: Supple. LUNGS: CTAB. HEART: RRR, S1, S2 present. Peripheral pulses intact ABDOMEN: Soft, nontender. Positive bowel sounds. EXTREMITIES: Without any cyanosis. NEUROLOGIC: Normal speech, normal tone, cranial nerves II through XII are grossly intact without any focal neurological deficits PSYCHIATRIC: Normal affect, normal mood. SKIN: No ulcerations Current Patient Data Vital Signs Vital Signs Date Time Temp Pulse Resp B/P (MAP) Pulse Ox O2 Delivery O2 Flow Rate FiO2 12/21/16 04:28 97.4 100 20 139/72 (94) 98 Room Air 97.4 EKG EKG [] Radiology/Procedures Radiology/Procedures [] Course & Med Decision Making Course & Med Decision Making Pertinent Labs and Imaging studies reviewed. (See chart for details) ED course: Patient was seen and examined in the emergency room 1 L normal saline, 50 mg Benadryl, 10 mg Decadron, 10 mg Reglan, 2 g magnesium sulfate were ordered along with 30 mg of Toradol 0527: Patient was reevaluated in which was feeling much better and she is ready go home. MDM: After reviewing the chart, CC/HPI/PMH, physical exam, I do not believe the patient has acute intracranial process warranting further workup and/or admission at this time. Based on the patient's physical exam findings and history of migraine headaches and this headache being similar to previous headaches I do not believe the patient needs an MRI or CT scan at this time. Patient was treated with some IV medications and reevaluated in which she improved. Patient had no neuro focal deficits noted on physical exam that are concerning. Patient is stable for discharge. Additional verbal discharge instructions were provided to the patient and that if symptoms get worse or any new symptoms arise that are worrisome to the patient she is to return to the emergency room immediately [] Dragon Disclaimer Dragon Disclaimer This electronic medical record was generated, in whole or in part, using a voice recognition dictation system. Departure Departure Impression: Primary Impression: Migraine Disposition: 01 HOME, SELF-CARE Condition: IMPROVED Referrals: LILLY NIELSON (PCP) Patient Instructions: Migraine Headache Additional Instructions: Please follow-up with your family physician next one to 2 days and return if symptoms increase TIARA ISBELL DO Dec 21, 2016 04:26
[2016-12-21 04:28] VITALS: BP 139/72
[2016-12-21] MEDS ORDERED: KETOROLAC 30 MG/ML INJ. IV ONE (04:30)
[2016-12-21] MEDS ORDERED: diphenhydrAMINE 50 MG/ML VIAL IVP ONE (04:30)
[2016-12-21] MEDS ORDERED: IV NORMAL SALINE 1000ML BAG 1,000 ML IV ONE (04:30)
[2016-12-21] MEDS ORDERED: METOCLOPRAMIDE HCL 10 MG/2 ML VIAL. IV ONE (04:30)
[2016-12-21] MEDS ORDERED: DEXAMETHASONE SOD PHOS 4 MG/ML VIAL IV ONE (04:30)
[2016-12-21] MEDS ORDERED: MAGNESIUM SULFATE 2GM 50 ML IV ONE (04:45)
== END 2016-12-21 05:36 | disposition home or self-care (01) ==
LOC: ER 04:09
DX: G43.909 Migraine, unspecified, not intractable, without status migrainosus (principal); F41.9 Anxiety disorder, unspecified; J45.909 Unspecified asthma, uncomplicated; F32.9 Major depressive disorder, single episode, unspecified; E03.9 Hypothyroidism, unspecified; Z88.1 Allergy status to other antibiotic agents; Z91.040 Latex allergy status
CPT/HCPCS: 96365; 96375; 99284; J1100; J1200; J1885; J2765; J7030; J7060

== ENCOUNTER 2017-02-16 06:48 | Emergency (ER) | payer SELFPAY ==
[~2017-02-16] VITALS: Ht 160 cm; Wt 104.3 kg
[2017-02-16 07:00] VITALS: BP 135/63
--- NOTE | 2017-02-16 07:19 | PHYS DOC ---
Past Medical History Past Medical History: Anxiety, Asthma, Depression, Hypothyroid, Other Additional Past Medical Histor: right ankle fx, hernia, SEPSIS Past Surgical History: Cholecystectomy, Other Additional Past Surgical Histo: hernia, LYPOMA REMOVAL Additional Information: 03/28 ppd Alcohol Use: Occasionally Drug Use: Marijuana Adult General Chief Complaint Chief Complaint: ANIMAL BITE HPI HPI Patient is a 31 year old female who presents with or left hand. She states her 2 dogs were fighting this morning and she tried to intervene and her miniature Colier better on her left hand. He states he is up-to-date on her tetanus is been updated within the last 5 years, she is left-hand dominant. She is allergic to Keflex but has tolerated Augmentin in the past. She complains of pain over her ring finger of her left hand. She states this happened around 6: 30 this morning. Review of Systems Review of Systems Constitutional: Denies fever or chills [] Eyes: Denies change in visual acuity, redness, or eye pain [] HENT: Denies nasal congestion or sore throat [] Respiratory: Denies cough or shortness of breath [] Cardiovascular: No additional information not addressed in HPI [] GI: Denies abdominal pain, nausea, vomiting, bloody stools or diarrhea [] : Denies dysuria or hematuria [] Musculoskeletal: Denies back pain or joint pain [] Integument: Denies rash, positive for skin tears/abrasions on left hand Neurologic: Denies headache, focal weakness or sensory changes [] Endocrine: Denies polyuria or polydipsia [] All other systems were reviewed and found to be within normal limits, except as documented in this note. Current Medications Current Medications Current Medications Medications (Trade) Dose Ordered Sig/Hermes Start Time Stop Time Status Last Admin Dose Admin Amoxicillin/ Clavulanate Potassium (Augmentin 875/ 125mg) 1 tab 1X ONCE 02/16/17 07:30 02/16/17 07:31 DC 02/16/17 07:29 1 TAB Allergies Allergies Allergies Coded Allergies Type Severity Reaction Last Updated Verified cephalexin Allergy Intermediate 11/23/14 No latex Allergy Intermediate 11/23/14 No Physical Exam Physical Exam Constitutional: Well developed, well nourished, no acute distress, non-toxic appearance. [] HENT: Normocephalic, atraumatic, bilateral external ears normal, oropharynx moist, no oral exudates, nose normal. [] Eyes: PERRLA, EOMI, conjunctiva normal, no discharge. [] Neck: Normal range of motion, no tenderness, supple, no stridor. [] Cardiovascular:Heart rate regular rhythm, no murmur [] Lungs & Thorax: Bilateral breath sounds clear to auscultation [] Abdomen: Bowel sounds normal, soft, no tenderness, no masses, no pulsatile masses. [] Skin: Warm, dry, no erythema, no rash. [] Back: No tenderness, no CVA tenderness. [] Extremities: Tender palpation over the left fourth digit of hand, able to flex and extend it MCP, PIP, DIP joint with moderate tenderness, no obvious deformities noted, several abrasions noted throughout digit, no cyanosis, no clubbing, ROM intact, no edema. Strength 5 out of 5 on flexion extension, radial , median, ulnar nerve dissertation intact to light touch throughout left hand Neurologic: Alert and oriented X 3, normal motor function, normal sensory function, no focal deficits noted. [] Psychologic: Affect normal, judgement normal, mood normal. [] Current Patient Data Vital Signs Vital Signs Date Time Temp Pulse Resp B/P (MAP) Pulse Ox O2 Delivery O2 Flow Rate FiO2 02/16/17 07:00 98.5 85 18 98 Room Air 98.5 EKG EKG [] Radiology/Procedures Radiology/Procedures 3 views of the left hand did not show any fractures, bony abnormalities, foreign bodies, as interpreted by me. Impressions: Dog bite left hand Course & Med Decision Making Course & Med Decision Making Pertinent Labs and Imaging studies reviewed. (See chart for details) Physical exam does not show any acute abnormality, she has a little bit swelling and tenderness throughout the left finger but able to flex extend and she is neurovascularly intact. X-ray did not show any foreign bodies. We will discharge with Augmentin for 7 days, tetanus is up-to-date, she is to use Epson salt soaks over the next several days. Return precautions given. Dragon Disclaimer Dragon Disclaimer This electronic medical record was generated, in whole or in part, using a voice recognition dictation system. Departure Departure Impression: Primary Impression: Dog bite Disposition: 01 HOME, SELF-CARE Condition: STABLE Referrals: LILLY NIELSON (PCP) Patient Instructions: Animal Bite Additional Instructions: The x-ray did not show anything broken. You will need to take antibiotics for the next 7 days. You can use Tylenol and/or Advil for pain. You will also need to soak your hand in Epsom salts 3-4 times daily for the next 2 days. Please follow the instructions on the bottle. If your pain gets worse, you have worsening swelling of your hand, your fingers turn blue, they turned red and swollen, urine able to bend her fingers without severe pain need to return back to emergency department immediately. Scripts Amoxicillin/Potassium Clav (AUGMENTIN 875-125 TABLET) 1 Each Tablet 1 TAB PO BID, #14 TAB Prov: SHANIQUA HEREDIA MD 02/16/17 Problem Qualifiers Primary Impression: Dog bite SHANIQUA HEREDIA MD Feb 16, 2017 07:19
[2017-02-16] MEDS ORDERED: AMOX1TAB61 PO (07:30)
[2017-02-16] MEDS ORDERED: AMOXICILLIN/K CLAV 875/125MG TABLET. PO ONE (07:30)
--- NOTE | 2017-02-16 08:03 | RAD ---
HAND LEFT 3V History:Dog bite today, pain in finger Comparison: None Findings:3 views of the left hand are submitted. No radiopaque foreign body or acute fracture is identified. Impression: 1.No acute osseous abnormality or radiopaque foreign body is identified.
== END 2017-02-16 07:59 | disposition home or self-care (01) ==
LOC: ER 06:48
DX: S61.452A Open bite of left hand, initial encounter (principal); J45.909 Unspecified asthma, uncomplicated; E03.9 Hypothyroidism, unspecified; Z88.1 Allergy status to other antibiotic agents; Z91.040 Latex allergy status; F17.200 Nicotine dependence, unspecified, uncomplicated; W54.0XXA Bitten by dog, initial encounter; Y93.89 Activity, other specified; Y99.8 Other external cause status; Y92.89 Other specified places as the place of occurrence of the external cause
CPT/HCPCS: 73130; 99284

== ENCOUNTER 2017-08-03 21:05 | Emergency (ER) | payer SELFPAY ==
[2017-08-03 21:44] LABS: ADD MAN DIFF? NO
[2017-08-03 21:46] LABS: BASO % 0 % (0-3); EOS % 0 % (0-3); HEMATOCRIT 43.7 % (36.0-47.0); LYMPH # 1.2 x10^3/uL (1.0-4.8); LYMPH % 26 % (24-48); MEAN CORPUSCULAR HEMOGLOBIN 31 pg (25-35); MEAN CORPUSCULAR HGB CONC 34 g/dL (31-37); MEAN CORPUSCULAR VOLUME 90 fL (79-100); MONO # 0.2 x10^3/uL (0.0-1.1); MONO % 5 % (0-9); NEUT # 3.3 x10^3uL (1.8-7.7); NEUT % 69 % (31-73); PLATELET COUNT 212 x10^3/uL (140-400); RED BLOOD COUNT 4.83 x10^6/uL (3.50-5.40); RED CELL DISTRIBUTION WIDTH 14.1 % (11.5-14.5); WHITE BLOOD COUNT 4.8 x10^3/uL (4.0-11.0)
[2017-08-03 21:48] LABS: BILIRUBIN,URINE NEGATIVE (NEG); CLARITY,URINE CLEAR; COLOR,URINE YELLOW; GLUCOSE,URINE NEGATIVE (NEG); NITRITE,URINE NEGATIVE (NEG); PH,URINE 6.5; PROTEIN,URINE NEGATIVE (NEG-TRACE)
[2017-08-03] MEDS ORDERED: ONDANSETRON PF 4 MG/2 ML VIAL. (21:50)
[2017-08-03 21:54] LABS: ANION GAP 9 (6-14); BACTERIA,URINE 0 /HPF (0-FEW); BLOOD UREA NITROGEN 10 mg/dL (7-20); CALCIUM 8.8 mg/dL (8.5-10.1); CARBON DIOXIDE 28 mmol/L (21-32); CHLORIDE 104 mmol/L (98-107); CREATININE 0.7 mg/dL (0.6-1.0); GFR 97.6; GLUCOSE 136 mg/dL (70-99); POTASSIUM 3.7 mmol/L (3.5-5.1); RBC,URINE RARE /HPF (0-2); SODIUM 141 mmol/L (136-145); SQUAMOUS EPITHELIAL CELL,UR FEW /LPF; WBC,URINE OCC /HPF (0-4)
[2017-08-03] MEDS: IV NORMAL SALINE 1000ML BAG 1,000 ML IV (21:55)
[2017-08-03] MEDS: ONDANSETRON PF 4 MG/2 ML VIAL. IV (21:55)
[2017-08-03] MEDS: MORPHINE SULFATE 4 MG/ML DISP.SYRIN. IV/SQ (21:55)
[2017-08-03] MEDS: 0.9 % SODIUM CHLORIDE 10 ML DISP.SYRIN. IV (21:56)
[2017-08-03 22:00] LABS: ALBUMIN 3.4 g/dL (3.4-5.0); ALK PHOS 67 U/L (46-116); ALT (SGPT) 28 U/L (14-59); AST (SGOT) 14 U/L (15-37); DIRECT BILIRUBIN 0.1 mg/dL (0.0-0.2); LIPASE 61 U/L (73-393); TOTAL BILIRUBIN 0.4 mg/dL (0.2-1.0); TOTAL PROTEIN 7.3 g/dL (6.4-8.2)
[2017-08-03 22:32] LABS: NEG OBC UR NEG; POS OBC UR POS; U PREG PATIENT NEGATIVE (NEG)
[2017-08-03] MEDS ORDERED: IOHEXOL 300 MG/ML 100ML VIAL. (22:40)
[2017-08-03] MEDS ORDERED: CONTRAST GIVEN MC (22:45)
[2017-08-03] MEDS: IOHEXOL 300 MG/ML 100ML VIAL. IV (22:47)
[2017-08-03] MEDS: MORPHINE SULFATE 4 MG/ML DISP.SYRIN. IV (23:22)
== END 2017-08-03 23:36 | disposition home or self-care (01) ==
LOC: ER 21:05
DX: K52.9 Noninfective gastroenteritis and colitis, unspecified (principal); J45.909 Unspecified asthma, uncomplicated; F12.10 Cannabis abuse, uncomplicated; F41.9 Anxiety disorder, unspecified; F32.9 Major depressive disorder, single episode, unspecified; E03.9 Hypothyroidism, unspecified; Z90.49 Acquired absence of other specified parts of digestive tract; Z88.1 Allergy status to other antibiotic agents; Z91.040 Latex allergy status
CPT/HCPCS: 36415; 74177; 80048; 80076; 81001; 81025; 83690; 85025; 96361; 96374; 96375; 96376; 99285-25; J2270; J2405; J7030; Q9967

== ENCOUNTER 2017-08-27 02:58 | Emergency (ER) | payer SELFPAY ==
[2017-08-27 03:28] LABS: BILIRUBIN,URINE NEGATIVE (NEG); CLARITY,URINE CLOUDY; COLOR,URINE YELLOW; GLUCOSE,URINE NEGATIVE (NEG); NITRITE,URINE NEGATIVE (NEG); PROTEIN,URINE NEGATIVE (NEG-TRACE); UROBILINOGEN,URINE 0.2 mg/dL (0.2 mg/dL)
[2017-08-27 03:39] LABS: ADD MAN DIFF? NO
[2017-08-27 03:42] LABS: BASO % 0 % (0-3); EOS % 0 % (0-3); HEMOGLOBIN 15.2 g/dL (12.0-15.5); LYMPH # 1.6 x10^3/uL (1.0-4.8); LYMPH % 26 % (24-48); MEAN CORPUSCULAR HEMOGLOBIN 31 pg (25-35); MEAN CORPUSCULAR HGB CONC 34 g/dL (31-37); MEAN CORPUSCULAR VOLUME 90 fL (79-100); MONO # 0.4 x10^3/uL (0.0-1.1); MONO % 6 % (0-9); NEUT # 4.2 x10^3uL (1.8-7.7); NEUT % 68 % (31-73); PLATELET COUNT 223 x10^3/uL (140-400); RED BLOOD COUNT 4.89 x10^6/uL (3.50-5.40); RED CELL DISTRIBUTION WIDTH 13.7 % (11.5-14.5); WHITE BLOOD COUNT 6.2 x10^3/uL (4.0-11.0)
[2017-08-27] MEDS ORDERED: MORPHINE SULFATE 10 MG/ML VIAL. (03:49)
[2017-08-27] MEDS: MORPHINE SULFATE 10 MG/ML VIAL. IV (03:54)
[2017-08-27] MEDS: ONDANSETRON PF 4 MG/2 ML VIAL. IV (03:54)
[2017-08-27] MEDS: IV NORMAL SALINE 1000ML BAG 1,000 ML IV (03:55)
[2017-08-27 03:56] LABS: ANION GAP 13 (6-14); BACTERIA,URINE FEW /HPF (0-FEW); BLOOD UREA NITROGEN 10 mg/dL (7-20); CALCIUM 9.1 mg/dL (8.5-10.1); CARBON DIOXIDE 22 mmol/L (21-32); CHLORIDE 102 mmol/L (98-107); CREATININE 0.6 mg/dL (0.6-1.0); GFR 116.6; GLUCOSE 101 mg/dL (70-99); POTASSIUM 3.4 mmol/L (3.5-5.1); RBC,URINE OCC /HPF (0-2); SODIUM 137 mmol/L (136-145); SQUAMOUS EPITHELIAL CELL,UR MANY /LPF; WBC,URINE OCC /HPF (0-4)
[2017-08-27 04:01] LABS: ALK PHOS 71 U/L (46-116); ALT (SGPT) 28 U/L (14-59); AST (SGOT) 17 U/L (15-37); DIRECT BILIRUBIN 0.1 mg/dL (0.0-0.2); LIPASE 189 U/L (73-393); TOTAL BILIRUBIN 0.4 mg/dL (0.2-1.0); TOTAL PROTEIN 7.7 g/dL (6.4-8.2)
[2017-08-27 04:43] LABS: NEG OBC UR NEG; POS OBC UR POS; U PREG PATIENT NEGATIVE (NEG)
[2017-08-27] MEDS ORDERED: CONTRAST GIVEN. MC (05:00)
[2017-08-27] MEDS: IOHEXOL 300 MG/ML 100ML VIAL. IV (05:01)
[2017-08-27] MEDS: HYDROcodone/APAP 5/325MG 1 TAB TABLET PO (05:31)
== END 2017-08-27 05:37 | disposition home or self-care (01) ==
LOC: ER 02:58
DX: R10.84 Generalized abdominal pain (principal); R14.0 Abdominal distension (gaseous); R11.2 Nausea with vomiting, unspecified; E03.9 Hypothyroidism, unspecified; Z88.1 Allergy status to other antibiotic agents; Z91.040 Latex allergy status
CPT/HCPCS: 36415; 74177; 80048; 80076; 81001; 81025; 83690; 85025; 96361; 96374; 96375; 99285-25; J2270; J2405; J7030; Q9967

== ENCOUNTER 2017-10-22 03:00 | Emergency (ER) | payer SELFPAY ==
[2017-10-22 03:23] LABS: URINE HCG POC HCG NEGATIVE (Negative)
[2017-10-22 03:41] LABS: BILIRUBIN,URINE NEGATIVE (NEG); CLARITY,URINE CLEAR; COLOR,URINE YELLOW; GLUCOSE,URINE NEGATIVE (NEG); NITRITE,URINE NEGATIVE (NEG); PROTEIN,URINE NEGATIVE (NEG-TRACE)
[2017-10-22 03:46] LABS: AMORPHOUS SEDIMENT,UR PRESENT /HPF; BACTERIA,URINE FEW /HPF (0-FEW); RBC,URINE OCC /HPF (0-2); SQUAMOUS EPITHELIAL CELL,UR FEW /LPF; WBC,URINE 0 /HPF (0-4)
[2017-10-22 03:51] LABS: ADD MAN DIFF? NO
[2017-10-22 03:53] LABS: BASO % 1 % (0-3); EOS % 1 % (0-3); HEMATOCRIT 46.4 % (36.0-47.0); HEMOGLOBIN 16.1 g/dL (12.0-15.5); LYMPH # 2.3 x10^3/uL (1.0-4.8); LYMPH % 38 % (24-48); MEAN CORPUSCULAR HEMOGLOBIN 31 pg (25-35); MEAN CORPUSCULAR HGB CONC 35 g/dL (31-37); MEAN CORPUSCULAR VOLUME 90 fL (79-100); MONO # 0.3 x10^3/uL (0.0-1.1); MONO % 6 % (0-9); NEUT # 3.3 x10^3uL (1.8-7.7); NEUT % 55 % (31-73); PLATELET COUNT 244 x10^3/uL (140-400); RED BLOOD COUNT 5.15 x10^6/uL (3.50-5.40); RED CELL DISTRIBUTION WIDTH 13.4 % (11.5-14.5)
[2017-10-22] MEDS: ACETAMINOPHEN 325 MG TABLET. PO (03:53)
[2017-10-22] MEDS: IV NORMAL SALINE 1000ML BAG 1,000 ML IV (03:53)
[2017-10-22] MEDS: AZITHROMYCIN 250 MG TABLET. PO (03:54)
[2017-10-22 04:01] LABS: ANION GAP 6 (6-14); BLOOD UREA NITROGEN 19 mg/dL (7-20); BUN/CREATININE RATIO 27 (6-20); CALCIUM 9.5 mg/dL (8.5-10.1); CARBON DIOXIDE 27 mmol/L (21-32); CHLORIDE 105 mmol/L (98-107); CREATININE 0.7 mg/dL (0.6-1.0); GFR 97.6; GLUCOSE 96 mg/dL (70-99); POTASSIUM 4.1 mmol/L (3.5-5.1); SODIUM 138 mmol/L (136-145)
[2017-10-22 04:06] LABS: ALBUMIN 3.8 g/dL (3.4-5.0); ALBUMIN/GLOBULIN RATIO 0.9 (1.0-1.7); ALK PHOS 88 U/L (46-116); ALT (SGPT) 17 U/L (14-59); AST (SGOT) 15 U/L (15-37); LIPASE 116 U/L (73-393); MAGNESIUM 1.9 mg/dL (1.8-2.4); TOTAL BILIRUBIN 0.2 mg/dL (0.2-1.0); TOTAL PROTEIN 7.9 g/dL (6.4-8.2)
[2017-10-22] MEDS: ONDANSETRON PF 4 MG/2 ML VIAL. IV (06:00)
[2017-10-23 15:27] LABS: CHLAMYDIA PROBE Negative (Negative); GC PROBE Negative (Negative)
== END 2017-10-22 06:20 | disposition home or self-care (01) ==
LOC: ER 03:00
DX: N76.0 Acute vaginitis (principal); B96.89 Other specified bacterial agents as the cause of diseases classified elsewhere; R10.2 Pelvic and perineal pain; F32.9 Major depressive disorder, single episode, unspecified; E03.9 Hypothyroidism, unspecified; Z90.49 Acquired absence of other specified parts of digestive tract; Z88.1 Allergy status to other antibiotic agents; Z91.040 Latex allergy status
CPT/HCPCS: 36415; 76830; 76856; 80053; 81001; 81025; 83690; 83735; 85025; 87491; 87591; 96374; 99285-25; J2405; J7030; Q0111; Q0144

== ENCOUNTER 2017-12-13 18:32 | Emergency (ER) | payer SELFPAY ==
[~2017-12-13] VITALS: Ht 160 cm; Wt 106.6 kg
[~2017-12-13 18:32] MED LIST changes: +CITA40TA12 PO; +DICY10CA3 PO; +HYDR-963 PO; +IBUP200C9 PO; +METR500T PO; +NAPR-683 PO; -NAPR500T PO; +RANI150T2 PO
[2017-12-13 22:48] LABS: BILIRUBIN,URINE NEGATIVE (NEG); CLARITY,URINE CLEAR; COLOR,URINE YELLOW; NITRITE,URINE NEGATIVE (NEG); PH,URINE 6.5; PROTEIN,URINE NEGATIVE (NEG-TRACE)
[2017-12-13 22:55] LABS: BACTERIA,URINE FEW /HPF (0-FEW); RBC,URINE 0 /HPF (0-2); SQUAMOUS EPITHELIAL CELL,UR MANY /LPF; WBC,URINE RARE /HPF (0-4)
--- NOTE | 2017-12-13 23:01 | PHYS DOC ---
Past Medical History Past Medical History: Depression, Hypothyroid Additional Past Medical Histor: right ankle fx, hernia, SEPSIS, PYELONEPHRITIS Past Surgical History: Cholecystectomy Additional Past Surgical Histo: UMBILICAL HERNIA Smoking: Less than 1pk/day Alcohol Use: Occasionally Drug Use: Marijuana Adult General Chief Complaint Chief Complaint: ABDOMINAL PAIN HPI HPI Patient is a 32 year old female who presents with abdominal pain that started 2 weeks ago. She states it has been getting progressively worse. She states the pain began in the epigastric region but is now diffuse and radiates to her flank and back region, as well as her pelvic region. The pain is constant and she describes it as "simultaneously being stomped on and stabbed". She also notes nausea, vomiting, diarrhea, cough, low-grade fever, slight shortness of breath, and chest congestion for the past 2 days. She denies headache, dizziness , blurry vision, urinary urgency/frequency, and constipation. She had been admitted to the hospital about a week ago for vague urinary complaints and abdominal pain. She was discharged with a dicyclomine prescriptions and asked to schedule a gastric emptying study as an outpatient, but she did not do so due to financial reasons. Review of Systems Review of Systems Constitutional: Notes low-grade fever; Denies chills Eyes: Denies change in visual acuity, redness, or eye pain HENT: Notes nasal congestion; Denies sore throat Respiratory: Notes cough and shortness of breath Cardiovascular: No additional information not addressed in HPI GI: Notes abdominal pain, nausea, vomiting, diarrhea; Denies constipation : Denies dysuria or hematuria Musculoskeletal: Denies back pain or joint pain Integument: Denies rash or skin lesions Neurologic: Denies headache, focal weakness or sensory changes Complete systems were reviewed and found to be within normal limits, except as documented in this note. Family History Family History Father- diabetes () Mother- hypertension, liver and kidney disease Maternal grandmother- liver and kidney disease Current Medications Current Medications Current Medications Medications (Trade) Dose Ordered Sig/Hermes Start Time Stop Time Status Last Admin Dose Admin Albuterol/ Ipratropium (Duoneb) 3 ml 1X ONCE 12/13/17 23:15 12/13/17 23:16 DC 12/13/17 23:11 3 ML Dexamethasone Sodium Phosphate (Decadron) 10 mg 1X ONCE 12/13/17 23:15 12/13/17 23:16 DC 12/13/17 23:53 10 MG Diphenhydramine HCl (Benadryl) 25 mg 1X ONCE 12/13/17 23:15 12/13/17 23:16 DC 12/13/17 23:48 25 MG Famotidine (Pepcid Vial) 20 mg 1X ONCE 12/13/17 23:15 12/13/17 23:16 DC 12/13/17 23:53 20 MG Metoclopramide HCl (Reglan Vial) 10 mg 1X ONCE 12/13/17 23:15 12/13/17 23:16 DC 12/13/17 23:44 10 MG Sodium Chloride 1,000 ml @ 1,000 mls/hr 1X ONCE 12/13/17 23:15 12/14/17 00:14 DC 12/13/17 23:15 1,000 MLS/HR Allergies Allergies Allergies Coded Allergies Type Severity Reaction Last Updated Verified cephalexin Allergy Intermediate 12/05/17 Yes latex Allergy Intermediate 12/05/17 Yes Physical Exam Physical Exam Constitutional: Well developed, well nourished, no acute distress HENT: Normocephalic, atraumatic, oropharynx moist, no oral exudates, nose normal Eyes: Conjunctiva normal, no discharge Neck: Normal range of motion, no tenderness, supple, no meningismus Cardiovascular: Heart rate regular rhythm, no murmur Lungs & Thorax: Inspiratory wheezes present bilaterally in lung bases Abdomen: Bowel sounds normal, soft, abdomen diffusely tender to palpation Skin: Warm, dry, no erythema, no rash Back: No tenderness, no CVA tenderness Extremities: No tenderness, ROM intact, no edema Neurologic: Alert and oriented X 3, normal motor function, normal sensory function, no focal deficits noted Psychologic: Affect normal, judgement normal, mood normal Current Patient Data Vital Signs Vital Signs Date Time Temp Pulse Resp B/P (MAP) Pulse Ox O2 Delivery O2 Flow Rate FiO2 12/14/17 01:00 92 112/62 (79) 97 Room Air 12/13/17 23:00 18 12/13/17 21:55 99.0 99.0 Lab Values Laboratory Tests Test 12/13/17 19:11 12/13/17 23:30 12/14/17 01:07 Urine Collection Type Unknown Urine Color Yellow Urine Clarity Clear Urine pH 6.5 Urine Specific [place] 1.025 Urine Protein Negative mg/dL (NEG-TRACE) Urine Glucose (UA) Negative mg/dL (NEG) Urine Ketones (Stick) Negative mg/dL (NEG) Urine Blood Negative (NEG) Urine Nitrite Negative (NEG) Urine Bilirubin Negative (NEG) Urine Urobilinogen Dipstick 1.0 mg/dL (0.2 mg/dL) Urine Leukocyte Esterase Negative (NEG) Urine RBC 0 /HPF (0-2) Urine WBC Rare /HPF (0-4) Urine Squamous Epithelial Cells Many /LPF Urine Bacteria Few /HPF (0-FEW) Urine Mucus Slight /LPF Urine Test Negative (NEG) White Blood Count 7.1 x10^3/uL (4.0-11.0) Red Blood Count 4.71 x10^6/uL (3.50-5.40) Hemoglobin 14.5 g/dL (12.0-15.5) Hematocrit 42.6 % (36.0-47.0) Mean Corpuscular Volume 91 fL (79-100) Mean Corpuscular Hemoglobin 31 pg (25-35) Mean Corpuscular Hemoglobin Concent 34 g/dL (31-37) Red Cell Distribution Width 13.6 % (11.5-14.5) Platelet Count 170 x10^3/uL (140-400) Neutrophils (%) (Auto) 67 % (31-73) Lymphocytes (%) (Auto) 23 % (24-48) L Monocytes (%) (Auto) 9 % (0-9) Eosinophils (%) (Auto) 1 % (0-3) Basophils (%) (Auto) 0 % (0-3) Neutrophils # (Auto) 4.7 x10^3uL (1.8-7.7) Lymphocytes # (Auto) 1.6 x10^3/uL (1.0-4.8) Monocytes # (Auto) 0.6 x10^3/uL (0.0-1.1) Eosinophils # (Auto) 0.1 x10^3/uL (0.0-0.7) Basophils # (Auto) 0.0 x10^3/uL (0.0-0.2) Sodium Level 140 mmol/L (136-145) Potassium Level 3.2 mmol/L (3.5-5.1) L Chloride Level 105 mmol/L (98-107) Carbon Dioxide Level 22 mmol/L (21-32) Anion Gap 13 (6-14) Blood Urea Nitrogen 6 mg/dL (7-20) L Creatinine 0.5 mg/dL (0.6-1.0) L Estimated GFR (Cockcroft-Gault) 143.9 BUN/Creatinine Ratio 12 (6-20) Glucose Level 126 mg/dL (70-99) H Calcium Level 8.5 mg/dL (8.5-10.1) Magnesium Level 1.6 mg/dL (1.8-2.4) L Total Bilirubin 0.3 mg/dL (0.2-1.0) Aspartate Amino Transferase (AST) 19 U/L (15-37) Alanine Aminotransferase (ALT) 39 U/L (14-59) Alkaline Phosphatase 68 U/L (46-116) Total Protein 7.0 g/dL (6.4-8.2) Albumin 3.1 g/dL (3.4-5.0) L Albumin/Globulin Ratio 0.8 (1.0-1.7) L Lipase 81 U/L (73-393) Laboratory Tests 12/13/17 23:30 Laboratory Tests 12/14/17 01:07 EKG EKG [] Radiology/Procedures Radiology/Procedures 2-view chest x-ray- no acute abnormalities Course & Med Decision Making Course & Med Decision Making Trice Vang is a 32 year old female who presented with abdominal pain. She also noted nausea, vomiting, low-grade fever, cough, and some chest congestion. Pertinent labs and imaging studies were obtained and reviewed (see chart for details). UA was found to be negative. 2-view chest x-ray was negative , no acute abnormalities were seen. All other pertinent labs were found to be negative. She has been admitted to the hospital one week ago, at which time a CT scan and MRI were found to be negative. She was found to have slightly abnormal liver enzymes at the time. She was discharged on dicyclomine and asked to followup outpatient for a gastric emptying study, however, patient did not follow through with this due to financial concerns. Today, patient given a one- time dose of Reglan, Decadron, Duoneb, famotidine, and diphenhydramine for her symptoms, along with 1 L of fluids. Patient's cough and congestion symptoms likely due to bronchitis. She will be discharged with a prescription for Reglan , Zofran, steroids, and an albuterol inhaler. Patient stable for discharge with outpatient follow-up with PCP. Discussed findings and plan with patient, who acknowledges understanding and agreement. Camilleon Disclaimer Dragon Disclaimer This electronic medical record was generated, in whole or in part, using a voice recognition dictation system. Departure Departure Impression: Primary Impression: Abdominal pain Additional Impressions: Hypokalemia Bronchitis Disposition: HOME, SELF-CARE Condition: STABLE Referrals: LILLY NIELSON (PCP) BONITA SOFIA MD Patient Instructions: Abdominal Pain (Nonspecific), Acute Bronchitis, Easy-to- Read, Hypokalemia-Brief, Potassium Content of Foods Scripts Metoclopramide Hcl (REGLAN) 10 Mg Tablet 1 TAB PO TID, #21 TAB Prov: FRANCIA TEMPLETON DO 12/14/17 Prednisone (PREDNISONE) 20 Mg Tablet 2 TAB PO DAILY, #8 TAB Start on Monday12/15/17 Prov: FRANCIA TEMPLETON DO 12/14/17 Albuterol Sulfate (Proair Respiclick) 90 Mcg Aer.pow.ba 1 PUFF IH PRN Q6HRS PRN for SHORTNESS OF BREATH, #1 INHALER Prov: FRANCIA TEMPLETON DO 12/14/17 Problem Qualifiers Primary Impression: Abdominal pain Abdominal location: generalized Qualified Codes: R10.84 - Generalized abdominal pain FRANCIA TEMPLETON DO Dec 13, 2017 23:01
[2017-12-13 23:09] LABS: U PREG PATIENT NEGATIVE (NEG)
[2017-12-13] MEDS ORDERED: DEXAMETHASONE SOD PHOS 20 MG/5 ML VIAL. IV ONE (23:15)
[2017-12-13] MEDS ORDERED: METOCLOPRAMIDE HCL 10 MG/2 ML VIAL. IV ONE ×2 (23:15)
[2017-12-13] MEDS ORDERED: IV NORMAL SALINE 1000ML BAG 1,000 ML IV ONE (23:15)
[2017-12-13] MEDS ORDERED: diphenhydrAMINE 50 MG/ML VIAL IVP ONE (23:15)
[2017-12-13] MEDS ORDERED: IPRATRPIUM/ALBUTEROL 0.5/2.5MG 3 ML NEBU. NEB ONE (23:15)
[2017-12-13] MEDS ORDERED: FAMOTIDINE 20 MG/2 ML VIAL IVP ONE (23:15)
[2017-12-13 23:40] LABS: BASO % 0 % (0-3); EOS # 0.1 x10^3/uL (0.0-0.7); EOS % 1 % (0-3); HEMATOCRIT 42.6 % (36.0-47.0); HEMOGLOBIN 14.5 g/dL (12.0-15.5); LYMPH # 1.6 x10^3/uL (1.0-4.8); LYMPH % 23 % (24-48); MEAN CORPUSCULAR HEMOGLOBIN 31 pg (25-35); MEAN CORPUSCULAR HGB CONC 34 g/dL (31-37); MEAN CORPUSCULAR VOLUME 91 fL (79-100); MONO # 0.6 x10^3/uL (0.0-1.1); MONO % 9 % (0-9); NEUT # 4.7 x10^3uL (1.8-7.7); NEUT % 67 % (31-73); PLATELET COUNT 170 x10^3/uL (140-400); RED BLOOD COUNT 4.71 x10^6/uL (3.50-5.40); RED CELL DISTRIBUTION WIDTH 13.6 % (11.5-14.5); WHITE BLOOD COUNT 7.1 x10^3/uL (4.0-11.0)
[2017-12-14 01:38] LABS: CALCIUM 8.5 mg/dL (8.5-10.1); CREATININE 0.5 mg/dL (0.6-1.0); GFR 143.9; POTASSIUM 3.2 mmol/L (3.5-5.1)
[2017-12-14 01:46] LABS: ALBUMIN 3.1 g/dL (3.4-5.0); ALBUMIN/GLOBULIN RATIO 0.8 (1.0-1.7); MAGNESIUM 1.6 mg/dL (1.8-2.4); TOTAL BILIRUBIN 0.3 mg/dL (0.2-1.0)
[2017-12-14] MEDS ORDERED: METO10TA81 PO (02:28)
[2017-12-14] MEDS ORDERED: PROAIR RESPICL90 MCG IH (02:28)
[2017-12-14] MEDS ORDERED: PRED20TA PO (02:28)
[2017-12-14 02:30] VITALS: BP 122/65
--- NOTE | 2017-12-14 09:14 | RAD ---
Chest, 2 views, 12/13/2017: History: Cough, wheezing The heart size is normal. There is minimal discoid atelectasis in the right base. The left lung is clear. There is no evidence of pleural fluid. IMPRESSION: Minimal right basilar discoid atelectasis.
== END 2017-12-14 02:40 | disposition home or self-care (01) ==
LOC: ER 18:32
DX: R10.84 Generalized abdominal pain (principal); E87.6 Hypokalemia; R11.2 Nausea with vomiting, unspecified; R19.7 Diarrhea, unspecified; J40 Bronchitis, not specified as acute or chronic; F32.9 Major depressive disorder, single episode, unspecified; E03.9 Hypothyroidism, unspecified; F17.200 Nicotine dependence, unspecified, uncomplicated; Z90.49 Acquired absence of other specified parts of digestive tract; Z88.1 Allergy status to other antibiotic agents; Z91.040 Latex allergy status
CPT/HCPCS: 36415; 71046; 80053; 81001; 81025; 83690; 83735; 85025; 94640; 96361; 96374; 96375; 99285; J1100; J1200; J2765; J7030; J7620; S0028

== ENCOUNTER 2018-03-26 21:50 | Emergency (ER) | payer SELFPAY ==
[~2018-03-26] VITALS: Ht 165.1 cm; Wt 106.6 kg
[~2018-03-26 21:50] MED LIST changes: +ALBU2.5V8 INH; -HYDR-2758 PO; +HYDR-2761 PO; +HYDR-3135 PO; +HYDR-3164 PO; -HYDR-963 PO; -HYDR-971 PO; +METO10TA81 PO; -PROAIR HFA8.5 GM INH; +PROAIR RESPICL90 MCG IH
[2018-03-26 22:20] VITALS: BP 139/69
[2018-03-26 22:59] LABS: BASO % 0 % (0-3); EOS % 1 % (0-3); HEMATOCRIT 45.9 % (36.0-47.0); HEMOGLOBIN 16.1 g/dL (12.0-15.5); LYMPH # 1.5 x10^3/uL (1.0-4.8); LYMPH % 31 % (24-48); MEAN CORPUSCULAR HEMOGLOBIN 32 pg (25-35); MEAN CORPUSCULAR HGB CONC 35 g/dL (31-37); MEAN CORPUSCULAR VOLUME 91 fL (79-100); MONO # 0.3 x10^3/uL (0.0-1.1); MONO % 6 % (0-9); NEUT # 3.2 x10^3uL (1.8-7.7); NEUT % 62 % (31-73); PLATELET COUNT 274 x10^3/uL (140-400); RED BLOOD COUNT 5.06 x10^6/uL (3.50-5.40); RED CELL DISTRIBUTION WIDTH 13.2 % (11.5-14.5); WHITE BLOOD COUNT 5.1 x10^3/uL (4.0-11.0)
[2018-03-26] MEDS ORDERED: IV NORMAL SALINE 1000ML BAG 1,000 ML IV ONE (23:00)
[2018-03-26] MEDS ORDERED: KETOROLAC 15 MG/ML VIAL. IV ONE (23:00)
[2018-03-26] MEDS ORDERED: PROCHLORPERAZINE 10 MG/2 ML VIAL. IV ONE (23:00)
[2018-03-26] MEDS ORDERED: ONDANSETRON PF 4 MG/2 ML VIAL. IV ONE (23:00)
[2018-03-26] MEDS ORDERED: fentaNYL PF VIAL 100 MCG/2 ML VIAL IV ONE (23:00)
[2018-03-26 23:01] LABS: BILIRUBIN,URINE NEGATIVE (NEG); CLARITY,URINE CLEAR; COLOR,URINE YELLOW; NITRITE,URINE NEGATIVE (NEG); PH,URINE 5.5; PROTEIN,URINE NEGATIVE (NEG-TRACE); UROBILINOGEN,URINE 0.2 mg/dL (0.2 mg/dL)
[2018-03-26 23:09] LABS: CALCIUM 9.4 mg/dL (8.5-10.1); CREATININE 0.6 mg/dL (0.6-1.0); GFR 116.6; POTASSIUM 4.1 mmol/L (3.5-5.1)
[2018-03-26 23:10] LABS: BACTERIA,URINE FEW /HPF (0-FEW); RBC,URINE 0 /HPF (0-2); WBC,URINE 0 /HPF (0-4)
[2018-03-26 23:11] LABS: SQUAMOUS EPITHELIAL CELL,UR MANY /LPF
[2018-03-26 23:15] LABS: ALBUMIN 4.1 g/dL (3.4-5.0); TOTAL BILIRUBIN 0.3 mg/dL (0.2-1.0); TOTAL PROTEIN 8.2 g/dL (6.4-8.2)
[2018-03-26] MEDS ORDERED: HYDR-3164 PO (23:33)
[2018-03-26] MEDS ORDERED: ONDA4TAB7 PO (23:33)
--- NOTE | 2018-03-26 23:58 | PHYS DOC ---
Past Medical History Past Medical History: Depression, Hypothyroid Additional Past Medical Histor: right ankle fx, hernia, SEPSIS, PYELONEPHRITIS Past Surgical History: Cholecystectomy Additional Past Surgical Histo: UMBILICAL HERNIA Alcohol Use: Occasionally Drug Use: Marijuana Adult General Chief Complaint Chief Complaint: MULTIPLE COMPLAINTS HPI HPI Patient is a 32 year old f p/w migraine abdo pain and vomiting. pt has had migraine for a couple days typical of usual migraine, then took otc agents that got better but now has had vomiting and mid abdo pain radiating to right flank for the last day or so as well. Similar pain to when she was here in November had a negative CT abdomen and pelvis as well as a negative MRI of the abdomen. She was started gastric emptying study but has not done so yet. Patient states pain like something is stabbing are moderate in nature associated with vomiting similar previous episodes. She does drink alcohol sometimes Review of Systems Review of Systems Constitutional: Denies fever or chills [] Eyes: Denies change in visual acuity, redness, or eye pain [] HENT: Denies nasal congestion or sore throat [] GI: Denies bloody stools or diarrhea [] : Denies dysuria or hematuria [] Musculoskeletal: Denies back pain or joint pain [] Integument: Denies rash or skin lesions [] Neurologic: Denies headache, focal weakness or sensory changes [] Endocrine: Denies polyuria or polydipsia [] All other systems were reviewed and found to be within normal limits, except as documented in this note. Current Medications Current Medications Current Medications Medications (Trade) Dose Ordered Sig/Hermes Start Time Stop Time Status Last Admin Dose Admin Fentanyl Citrate (Fentanyl 2ml Vial) 50 mcg 1X ONCE 03/26/18 23:00 03/26/18 23:01 DC 03/26/18 23:14 50 MCG Ketorolac Tromethamine (Toradol 15mg Vial) 15 mg 1X ONCE 03/26/18 23:00 03/26/18 23:01 DC 03/26/18 23:14 15 MG Ondansetron HCl (Zofran) 4 mg 1X ONCE 03/26/18 23:00 03/26/18 23:01 DC 03/26/18 23:15 4 MG Prochlorperazine Edisylate (Compazine) 10 mg 1X ONCE 03/26/18 23:00 03/26/18 23:01 DC 03/26/18 23:15 10 MG Sodium Chloride 1,000 ml @ 1,000 mls/hr 1X ONCE 03/26/18 23:00 03/26/18 23:59 03/26/18 23:15 1,000 MLS/HR Allergies Allergies Allergies Coded Allergies Type Severity Reaction Last Updated Verified cephalexin Allergy Intermediate 12/05/17 Yes latex Allergy Intermediate 12/05/17 Yes Physical Exam Physical Exam Constitutional: Well developed, well nourished, no acute distress, non-toxic appearance. [] HENT: Normocephalic, atraumatic, bilateral external ears normal, oropharynx moist, no oral exudates, nose normal. [] Eyes: PERRLA, EOMI, conjunctiva normal, no discharge. [] Neck: Normal range of motion, no tenderness, supple, no stridor. [] Cardiovascular:Heart rate regular rhythm, no murmur [] Lungs & Thorax: Bilateral breath sounds clear to auscultation [] Abdomen: Bowel sounds normal, soft, epigastric and some right flank tenderness, really no prominent tenderness noted at McBurney's no masses, no pulsatile masses. [] Skin: Warm, dry, no erythema, no rash. [] Back: see above Extremities: No tenderness, no cyanosis, no clubbing, ROM intact, no edema. [] Neurologic: Alert and oriented X 3, normal motor function, normal sensory function, no focal deficits noted. [] Psychologic: Affect normal, judgement normal, mood normal. [] Current Patient Data Vital Signs Vital Signs Date Time Temp Pulse Resp B/P (MAP) Pulse Ox O2 Delivery O2 Flow Rate FiO2 03/26/18 22:02 98.4 95 139/69 (92) 100 Room Air 98.4 Lab Values Laboratory Tests Test 03/26/18 21:50 03/26/18 22:25 Urine Collection Type Unknown Urine Color Yellow Urine Clarity Clear Urine pH 5.5 Urine Specific [place] 1.010 Urine Protein Negative mg/dL (NEG-TRACE) Urine Glucose (UA) Negative mg/dL (NEG) Urine Ketones (Stick) Negative mg/dL (NEG) Urine Blood Large (NEG) Urine Nitrite Negative (NEG) Urine Bilirubin Negative (NEG) Urine Urobilinogen Dipstick 0.2 mg/dL (0.2 mg/dL) Urine Leukocyte Esterase Negative (NEG) Urine RBC 0 /HPF (0-2) Urine WBC 0 /HPF (0-4) Urine Squamous Epithelial Cells Many /LPF Urine Bacteria Few /HPF (0-FEW) White Blood Count 5.1 x10^3/uL (4.0-11.0) Red Blood Count 5.06 x10^6/uL (3.50-5.40) Hemoglobin 16.1 g/dL (12.0-15.5) H Hematocrit 45.9 % (36.0-47.0) Mean Corpuscular Volume 91 fL (79-100) Mean Corpuscular Hemoglobin 32 pg (25-35) Mean Corpuscular Hemoglobin Concent 35 g/dL (31-37) Red Cell Distribution Width 13.2 % (11.5-14.5) Platelet Count 274 x10^3/uL (140-400) Neutrophils (%) (Auto) 62 % (31-73) Lymphocytes (%) (Auto) 31 % (24-48) Monocytes (%) (Auto) 6 % (0-9) Eosinophils (%) (Auto) 1 % (0-3) Basophils (%) (Auto) 0 % (0-3) Neutrophils # (Auto) 3.2 x10^3uL (1.8-7.7) Lymphocytes # (Auto) 1.5 x10^3/uL (1.0-4.8) Monocytes # (Auto) 0.3 x10^3/uL (0.0-1.1) Eosinophils # (Auto) 0.0 x10^3/uL (0.0-0.7) Basophils # (Auto) 0.0 x10^3/uL (0.0-0.2) Sodium Level 140 mmol/L (136-145) Potassium Level 4.1 mmol/L (3.5-5.1) Chloride Level 102 mmol/L (98-107) Carbon Dioxide Level 30 mmol/L (21-32) Anion Gap 8 (6-14) Blood Urea Nitrogen 14 mg/dL (7-20) Creatinine 0.6 mg/dL (0.6-1.0) Estimated GFR (Cockcroft-Gault) 116.6 BUN/Creatinine Ratio 23 (6-20) H Glucose Level 126 mg/dL (70-99) H Calcium Level 9.4 mg/dL (8.5-10.1) Total Bilirubin 0.3 mg/dL (0.2-1.0) Aspartate Amino Transferase (AST) 17 U/L (15-37) Alanine Aminotransferase (ALT) 25 U/L (14-59) Alkaline Phosphatase 79 U/L (46-116) Total Protein 8.2 g/dL (6.4-8.2) Albumin 4.1 g/dL (3.4-5.0) Albumin/Globulin Ratio 1.0 (1.0-1.7) Lipase 428 U/L (73-393) H Laboratory Tests 03/26/18 22:25 Laboratory Tests 03/26/18 22:25 EKG EKG [] Radiology/Procedures Radiology/Procedures [] Course & Med Decision Making Course & Med Decision Making Pertinent Labs and Imaging studies reviewed. (See chart for details) []32-year-old female presenting with chief complaint of migraine headache as well as abdominal pain and vomiting. Patient is a history of recurrent abdominal pain the past so far as her extensive workup including most recently this November she says the pain is similar. She feels better in the emergency room after the above treatment. Labwork was essentially unremarkable the lipase was sort of mildly elevated she does have some alcohol history but not every day I did advise her to work on a clear liquid diet for the next 24 hours no alcohol we did give a short course of symptomatic pain relief. I did specifically talk with her in detail about the fact that CT scan really does not seem necessary at this time I did ask her lookout for fever migrating recurrent or worsening pain or unable to eat or drink and if that should occur she should come back for a repeat evaluation however she just had a CT abdomen and pelvis in November and she says the pain is similar and she is a young woman I don't think that CT imaging is a good idea at this point. Dragon Disclaimer Dragon Disclaimer This electronic medical record was generated, in whole or in part, using a voice recognition dictation system. Departure Departure Impression: Primary Impression: Abdominal pain Disposition: 01 HOME, SELF-CARE Condition: STABLE Referrals: LILLY NIELSON (PCP) Patient Instructions: Abdominal Pain (Nonspecific) Scripts Ondansetron Hcl (ZOFRAN) 4 Mg Tablet 4 MG PO PRN TID PRN for NAUSEA/VOMITING, #15 nausea/vomiting Prov: SONY MIGUEL MD 03/26/18 Hydrocodone/Apap 5-325 (NORCO 5-325 TABLET) 1 Each Tablet 1-2 EACH PO PRN Q6HRS PRN for PAIN, #10 as needed for pain Prov: SONY MIGUEL MD 03/26/18 SONY MIGUEL MD Mar 26, 2018 23:58
== END 2018-03-26 23:45 | disposition home or self-care (01) ==
LOC: ER 21:50
DX: R10.13 Epigastric pain (principal); E03.9 Hypothyroidism, unspecified; Z90.49 Acquired absence of other specified parts of digestive tract; Z88.1 Allergy status to other antibiotic agents; Z91.040 Latex allergy status
CPT/HCPCS: 36415; 80053; 81001; 83690; 85025; 96374; 96375; 99283; J0780; J1885; J2405; J3010; J7030; 96361

== ENCOUNTER 2018-05-30 14:47 | Emergency (ER) | payer OTHER ==
[2018-04-11 02:24] VITALS: BP 125/89
[~2018-05-30] VITALS: Ht 160 cm; Wt 111.1 kg
[~2018-05-30 14:47] MED LIST changes: +ONDA4TAB7 PO
--- NOTE | 2018-05-30 15:59 | RAD ---
EXAM: Right knee, 3 views. HISTORY: Fall. COMPARISON: None. FINDINGS: 3 views of the right knee are obtained. There is no fracture, dislocation or subluxation. There is no joint effusion. There is a small bone island within the proximal tibial metaphysis. IMPRESSION: No acute osseous finding. Electronically signed by: Snow Ellis MD (05/30/2018 3:56 PM) [id number]
--- NOTE | 2018-05-30 16:21 | PHYS DOC ---
Past Medical History Past Medical History: Depression, Hypothyroid, Pancreatitis, Other Additional Past Medical Histor: right ankle fx, hernia, SEPSIS, PYELONEPHRITIS Past Surgical History: Cholecystectomy, Other Additional Past Surgical Histo: UMBILICAL HERNIA Alcohol Use: Occasionally Drug Use: Marijuana Adult General Chief Complaint Chief Complaint: KNEE INJURY HPI HPI Patient is a 33 year old female who presents with the ED today complaining of 9 out of 10 right anterior knee pain that began yesterday after she fell at work. Patient denies any loss of consciousness. Describes the pain as throbbing and intermittent worse on touching the area. She states she is able to ambulate. Review of Systems Review of Systems Constitutional: Denies fever or chills [] Musculoskeletal: Reports right knee pain Integument: Denies rash or skin lesions [] Neurologic: Denies headache, focal weakness or sensory changes [] All other systems were reviewed and found to be within normal limits, except as documented in this note. Allergies Allergies Allergies Coded Allergies Type Severity Reaction Last Updated Verified cephalexin Allergy Intermediate 12/05/17 Yes latex Allergy Intermediate 12/05/17 Yes Physical Exam Physical Exam Constitutional: Well developed, well nourished, no acute distress, non-toxic appearance. [] Skin: Warm, dry, no erythema, no rash. [] Back: No tenderness, no CVA tenderness. [] Extremities: Right anterior knee with no obvious deformity, there is bruising on the anterior knee, tenderness on palpation of the right anterior knee. Full range of motion to the right knee, negative Britton sign, negative Lydia sign , negative anterior-posterior drawer sign, no laxity, +2 right pedal pulse. Cap refill less than 2 seconds the right toes. Neurologic: Alert and oriented X 3, normal motor function, normal sensory function, no focal deficits noted. [] Psychologic: Affect normal, judgement normal, mood normal. [] Current Patient Data Vital Signs Vital Signs Date Time Temp Pulse Resp B/P (MAP) Pulse Ox O2 Delivery O2 Flow Rate FiO2 05/30/18 14:59 98.2 80 16 137/65 (89) 97 Room Air 98.2 EKG EKG [] Course & Med Decision Making Course & Med Decision Making Pertinent Labs and Imaging studies reviewed. (See chart for details) This is a 33-year-old female patient presenting to the ED today with right anterior knee pain status post falling yesterday, right knee x-rays interpreted by radiologist are negative for any acute findings. [place] bandage applied to the right knee by the ED RN, neurovascular exam is intact. Ice elevation encouraged. OTC pain relievers. Follow-up with orthopedic doctor in one week. Dragon Disclaimer Dragon Disclaimer This electronic medical record was generated, in whole or in part, using a voice recognition dictation system. Departure Departure Impression: Primary Impression: Contusion of right knee Additional Impression: Fall from standing Disposition: HOME, SELF-CARE Condition: STABLE Referrals: LILLY NIELSON (PCP) TYREE SANTOYO II, MD Follow-up in 1-2 weeks Patient Instructions: Knee Pain, [id number] Additional Instructions: You were evaluated in the emergency room for right knee pain, your right knee x- rays are negative for any acute findings. Try to ice and elevate the extremity. Use the [place] bandage provided as tolerated. Take [id number] pain relievers as needed. Follow-up with your workman comp doctor or the orthopedic doctor provided in one week. Problem Qualifiers Primary Impression: Contusion of right knee Encounter type: initial encounter Qualified Codes: S80.01XA - Contusion of right knee, initial encounter Additional Impression: Fall from standing Encounter type: initial encounter Qualified Codes: W19.XXXA - Unspecified fall, initial encounter JOJO HARRIS APRN May 30, 2018 16:21
== END 2018-05-30 16:28 | disposition home or self-care (01) ==
LOC: ER 14:47
DX: S80.01XA Contusion of right knee, initial encounter (principal); E03.9 Hypothyroidism, unspecified; Z88.1 Allergy status to other antibiotic agents; Z91.040 Latex allergy status; W18.39XA Other fall on same level, initial encounter; Y93.89 Activity, other specified; Y92.69 Other specified industrial and construction area as the place of occurrence of the external cause; Y99.0 Civilian activity done for income or pay
CPT/HCPCS: 73564; 99283

== ENCOUNTER 2018-09-04 21:31 | Emergency (ER) | payer SELFPAY ==
[~2018-09-04] VITALS: Ht 160 cm; Wt 111.1 kg
[2018-09-04 21:55] VITALS: BP 154/72
[2018-09-04] MEDS ORDERED: NAPROXEN 500 MG TABLET PO ONE (22:00)
[2018-09-04] MEDS ORDERED: HYDROcodone/APAP 5/325MG 1 TAB TABLET PO ONE (22:00)
[2018-09-04] MEDS ORDERED: DICL50TA4 PO (23:09)
--- NOTE | 2018-09-04 23:10 | PHYS DOC ---
Past Medical History Past Medical History: Depression, Hypothyroid, Pancreatitis, Other Additional Past Medical Histor: right ankle fx, hernia, SEPSIS, PYELONEPHRITIS (JOJO HARRIS APRN) Past Surgical History: Cholecystectomy, Other Additional Past Surgical Histo: UMBILICAL HERNIA (JOJO HARRIS APRN) Alcohol Use: Occasionally Drug Use: Marijuana (JOJO HARRIS APRN) Adult General Chief Complaint Chief Complaint: FOOT INJURY PAIN HPI HPI Patient is a 33 year old female who presents to the ED today complaining of out of 10 right foot pain, symptoms [place] a [place]. Patient states the pain is worse on weight-bearing. Denies anything relieving pain. Describes the pain as sharp and intermittent. (JOJO HARRIS APRN) Review of Systems Review of Systems Constitutional: Denies fever or chills [] Musculoskeletal: Reports left foot pain Integument: Denies rash or skin lesions [] Neurologic: Denies headache, focal weakness or sensory changes [] Endocrine: Denies polyuria or polydipsia [] All other systems were reviewed and found to be within normal limits, except as documented in this note. (JOJO HARRIS APRN) Current Medications Current Medications Current Medications Medications (Trade) Dose Ordered Sig/Hermes Start Time Stop Time Status Last Admin Dose Admin Acetaminophen/ Hydrocodone Bitart (Lortab 5/325) 2 tab 1X ONCE 09/04/18 22:00 09/04/18 22:01 DC 09/04/18 22:04 2 TAB Naproxen (Naprosyn) 500 mg 1X ONCE 09/04/18 22:00 09/04/18 22:01 DC 09/04/18 22:04 500 MG (SONY MIGUEL MD) Allergies Allergies Allergies Coded Allergies Type Severity Reaction Last Updated Verified cephalexin Allergy Intermediate 12/05/17 Yes latex Allergy Intermediate 12/05/17 Yes (SONY MIGUEL MD) Physical Exam Physical Exam Constitutional: Well developed, well nourished, no acute distress, non-toxic appearance. [] Skin: Warm, dry, no erythema, no rash. [] Back: No tenderness, no CVA tenderness. [] Extremities: Left foot and left ankle with no obvious deformity. Diffuse tenderness throughout the left foot and left ankle. Full range of motion to the left foot and ankle. +2 left pedal pulse. Cap refill less than 2 seconds the left toes. Sensation intact. Neurologic: Alert and oriented X 3, normal motor function, normal sensory function, no focal deficits noted. [] Psychologic: Affect normal, judgement normal, mood normal. [] (JOJO HARRIS APRN) Current Patient Data Vital Signs Vital Signs Date Time Temp Pulse Resp B/P (MAP) Pulse Ox O2 Delivery O2 Flow Rate FiO2 09/04/18 22:04 18 98 Room Air 09/04/18 21:55 98.3 86 154/72 (99) 98.3 (SONY MIGUEL MD) EKG EKG [] (JOJO HARRIS APRN) Radiology/Procedures Radiology/Procedures [] (JOJO HARRIS APRN) Course & Med Decision Making Course & Med Decision Making Pertinent Labs and Imaging studies reviewed. (See chart for details) This is a 33-year-old female patient presenting to the ED today with left foot pain that began a week ago after stepping off a cristino. Left foot and left ankle x-rays interpreted by Dr. Walls are negative for any acute findings. Discharged on diclofenac. Ice elevation encouraged. Follow-up with orthopedic doctor in 1-2 weeks. (JOJO HARRIS APRN) Course & Med Decision Making Staff Physician Addendum: I was working in the ER during the course of this patient's visit. I was available for consultation as needed, but I was not directly involved in the care of this patient. (SONY MIGUEL MD) Dragon Disclaimer Dragon Disclaimer This electronic medical record was generated, in whole or in part, using a voice recognition dictation system. (JOJO HARRIS APRN) Departure Departure Impression: Primary Impression: Sprain of foot, left Disposition: HOME, SELF-CARE Condition: STABLE Referrals: NO PCP (PCP) KOKO BENNETT MD follow up in 1-2 weeks Patient Instructions: Foot Sprain-Brief Additional Instructions: You were seen for left foot pain, your left foot x-rays are negative for any acute findings, your left ankle x-rays are also negative for any acute findings. Try to ice and elevate the extremity. Take the prescribed pain medicine as needed. Follow-up with your own doctor or the provided orthopedic doctor in 1-2 weeks. Scripts Diclofenac Sodium (DICLOFENAC SODIUM) 50 Mg Tablet.dr Hoang TAB PO BID, #20 TAB 0 Refills Prov: JOJO HARRIS APRN 09/04/18 Problem Qualifiers Primary Impression: Sprain of foot, left Encounter type: initial encounter Qualified Codes: S93.602A - Unspecified sprain of left foot, initial encounter JOJO HARRIS APRN Sep 04, 2018 23:10 SONY MIGUEL MD Sep 05, 2018 21:33
--- NOTE | 2018-09-05 05:53 | RAD ---
Right ankle 3 views: Reason for examination: Fell with injury complained of ankle and foot pain. Comparison is made to previous study dated 11/23/2014. No acute fracture or dislocation is seen. There is some cortical irregularity along the posterior aspect of the talus however this appears to be unchanged. No abnormal periosteal reaction is seen. There is some bony protuberance at the medial margin of the medial malleolus. This could represent an exostosis but appears to be chronic and unchanged. Joint spaces are maintained. There continues to be some soft tissue fullness of the right lateral malleolus which is not changed. IMPRESSION: Chronic changes at the medial malleolus and posterior talus. Soft tissue fullness over the lateral malleolus which is unchanged. No acute abnormalities evident at the right ankle. Right foot 3 views: No acute fracture or dislocation is seen. There continues to be some cortical irregularity posteriorly on the talus which is unchanged. The bone density is normal. No abnormal periosteal reaction is seen. Joint spaces are maintained. IMPRESSION: No acute bony abnormality evident in the right foot. Electronically signed by: Maria Esther Zaman MD (09/05/2018 5:50 AM) [facility]
== END 2018-09-04 23:25 | disposition home or self-care (01) ==
LOC: ER 21:31
DX: S93.691A Other sprain of right foot, initial encounter (principal); F32.9 Major depressive disorder, single episode, unspecified; E03.9 Hypothyroidism, unspecified; Z88.1 Allergy status to other antibiotic agents; Z91.040 Latex allergy status; Z90.49 Acquired absence of other specified parts of digestive tract; W22.8XXA Striking against or struck by other objects, initial encounter; Y93.89 Activity, other specified; Y92.832 Beach as the place of occurrence of the external cause; Y99.8 Other external cause status
CPT/HCPCS: 73610; 73630; 99284

== ENCOUNTER 2018-10-20 00:36 | Emergency (ER) | payer OTHER ==
[~2018-10-20] VITALS: Ht 167.6 cm; Wt 111.1 kg
[~2018-10-20 00:36] MED LIST changes: +DICL50TA4 PO
[2018-10-20 00:58] LABS: BILIRUBIN,URINE NEGATIVE (NEG); CLARITY,URINE CLEAR; COLOR,URINE YELLOW; NITRITE,URINE NEGATIVE (NEG); PROTEIN,URINE NEGATIVE (NEG-TRACE)
[2018-10-20 01:07] LABS: BACTERIA,URINE FEW /HPF (0-FEW); SQUAMOUS EPITHELIAL CELL,UR MOD /LPF
[2018-10-20] MEDS ORDERED: IV NORMAL SALINE 1000ML BAG 1,000 ML IV SCH (01:20)
[2018-10-20] MEDS ORDERED: ONDANSETRON PF 4 MG/2 ML VIAL. IV ONE (01:30)
[2018-10-20] MEDS: fentaNYL PF VIAL 100 MCG/2 ML VIAL IV PRN ×2 (01:32→02:54)
[2018-10-20 01:33] LABS: BASO % 0 % (0-3); EOS % 1 % (0-3); HEMATOCRIT 44.7 % (36.0-47.0); HEMOGLOBIN 15.1 g/dL (12.0-15.5); LYMPH # 2.1 x10^3/uL (1.0-4.8); LYMPH % 30 % (24-48); MEAN CORPUSCULAR HEMOGLOBIN 31 pg (25-35); MEAN CORPUSCULAR HGB CONC 34 g/dL (31-37); MEAN CORPUSCULAR VOLUME 91 fL (79-100); MONO # 0.4 x10^3/uL (0.0-1.1); MONO % 6 % (0-9); NEUT # 4.5 x10^3/uL (1.8-7.7); NEUT % 64 % (31-73); PLATELET COUNT 225 x10^3/uL (140-400); RED BLOOD COUNT 4.89 x10^6/uL (3.50-5.40); RED CELL DISTRIBUTION WIDTH 13.6 % (11.5-14.5)
[2018-10-20 01:43] LABS: CALCIUM 8.9 mg/dL (8.5-10.1); CREATININE 0.9 mg/dL (0.6-1.0); GFR 72.6; POTASSIUM 3.7 mmol/L (3.5-5.1)
[2018-10-20 01:49] LABS: ALBUMIN 3.7 g/dL (3.4-5.0); TOTAL BILIRUBIN 0.3 mg/dL (0.2-1.0); TOTAL PROTEIN 7.5 g/dL (6.4-8.2)
[2018-10-20] MEDS ORDERED: IOHEXOL 300 MG/ML 100ML VIAL. IV ONE (02:30)
[2018-10-20] MEDS ORDERED: CONTRAST GIVEN. MC PRN (02:45)
--- NOTE | 2018-10-20 03:00 | RAD ---
PQRS Compliance Statement: One or more of the following individualized dose reduction techniques were utilized for this examination: 1. Automated exposure control 2. Adjustment of the mA and/or kV according to patient size 3. Use of iterative reconstruction technique CT ABD PELV W/ IV CONTRST ONLY Clinical Indication: Upper abdominal pain, nausea, vomiting, diarrhea. Comparison: CT abdomen and pelvis with contrast, April 11, 2018. Technique: Helical CT imaging of the abdomen and pelvis is performed after 75 cc of Omnipaque 300 IV contrast. Oral contrast not given. Findings: There is minimal atelectasis in the bilateral lower lobes. Cardiac size is normal. Cholecystectomy. Liver, spleen, pancreas, adrenal glands, abdominal aorta, and kidneys are normal. Stomach unremarkable. Redemonstrated periumbilical ventral hernia mash. No dilated small bowel. The appendix is normal. No colon wall thickening is seen. No abdominal adenopathy or free fluid. The urinary bladder is normal. Uterus and ovaries unremarkable. No pelvic free fluid. No acute bone abnormality. IMPRESSION: No acute abdominal or pelvic abnormality. Electronically signed by: Jon Murray MD (10/20/2018 2:58 AM) [facility]
--- NOTE | 2018-10-20 03:19 | PHYS DOC ---
Past Medical History Past Medical History: Depression, Hypothyroid, Pancreatitis, Other Additional Past Medical Histor: right ankle fx, hernia, SEPSIS, PYELONEPHRITIS Past Surgical History: Cholecystectomy, Other Additional Past Surgical Histo: UMBILICAL HERNIA Alcohol Use: Occasionally Drug Use: Marijuana Adult General Chief Complaint Chief Complaint: ABDOMINAL PAIN HPI HPI Patient is a 33-year-old female who presents with complaint of abdominal pain with vomiting and diarrhea for the last few days. Patient states that symptoms are progressively worsening. She states that she has had difficulty in keeping anything down. She states the majority of her pain is in the epigastric region and over the last 24 hours she states the pain started radiating into her back. She rates pain at a 9 out of 10. She states that nothing is improving her symptoms.[] Review of Systems Review of Systems Constitutional: Denies fever or chills [] Respiratory: Denies cough or shortness of breath [] Cardiovascular: No additional information not addressed in HPI [] GI: Complains of abdominal pain with nausea, vomiting and diarrhea [] Musculoskeletal: Complains of mid back pain [] Integument: Denies rash or skin lesions [] All other systems were reviewed and found to be within normal limits, except as documented in this note. Current Medications Current Medications Current Medications Medications (Trade) Dose Ordered Sig/Hermes Start Time Stop Time Status Last Admin Dose Admin Fentanyl Citrate (Fentanyl 2ml Vial) 25 mcg PRN Q15MIN PRN 10/20/18 01:30 10/21/18 01:29 10/20/18 02:54 25 MCG Info (CONTRAST GIVEN -- Rx MONITORING) 1 each PRN DAILY PRN 10/20/18 02:45 10/22/18 02:44 Iohexol (Omnipaque 300 Mg/ml) 75 ml 1X ONCE 10/20/18 02:30 10/20/18 02:34 DC 10/20/18 02:41 75 ML Ondansetron HCl (Zofran) 4 mg 1X ONCE 10/20/18 01:30 10/20/18 01:41 DC 10/20/18 01:32 4 MG Sodium Chloride 1,000 ml @ 1,000 mls/hr Q1H 10/20/18 01:20 10/20/18 02:19 DC 10/20/18 01:32 1,000 MLS/HR Allergies Allergies Allergies Coded Allergies Type Severity Reaction Last Updated Verified cephalexin Allergy Intermediate 12/05/17 Yes latex Allergy Intermediate 12/05/17 Yes Physical Exam Physical Exam Constitutional: Well developed, well nourished, no acute distress, non-toxic appearance. [] HENT: Normocephalic, atraumatic, bilateral external ears normal, oropharynx moist, no oral exudates, nose normal. [] Eyes: PERRLA, EOMI, conjunctiva normal, no discharge. [] Neck: Normal range of motion, no tenderness, supple, no stridor. [] Cardiovascular:Heart rate regular rhythm, no murmur [] Lungs & Thorax: Bilateral breath sounds clear to auscultation [] Abdomen: Bowel sounds normal, soft, with epigastric tenderness. [] Skin: Warm, dry, no erythema, no rash. [] Extremities: No tenderness, no cyanosis, no clubbing, ROM intact, no edema. [] Neurologic: Alert and oriented X 3, no focal deficits noted. [] Current Patient Data Vital Signs Vital Signs Date Time Temp Pulse Resp B/P (MAP) Pulse Ox O2 Delivery O2 Flow Rate FiO2 10/20/18 02:54 18 Room Air 10/20/18 01:32 99 Lab Values Laboratory Tests Test 10/20/18 00:44 10/20/18 00:47 10/20/18 01:12 Urine Collection Type Void Urine Color Yellow Urine Clarity Clear Urine pH 6.0 Urine Specific Lampe >=1.030 Urine Protein Negative mg/dL (NEG-TRACE) Urine Glucose (UA) Negative mg/dL (NEG) Urine Ketones (Stick) Negative mg/dL (NEG) Urine Blood Negative (NEG) Urine Nitrite Negative (NEG) Urine Bilirubin Negative (NEG) Urine Urobilinogen Dipstick 1.0 mg/dL (0.2 mg/dL) Urine Leukocyte Esterase Negative (NEG) Urine RBC 1-2 /HPF (0-2) Urine WBC 1-4 /HPF (0-4) Urine Squamous Epithelial Cells Mod /LPF Urine Bacteria Few /HPF (0-FEW) Urine Mucus Slight /LPF POC Urine HCG, Qualitative Hcg negative (Negative) White Blood Count 7.0 x10^3/uL (4.0-11.0) Red Blood Count 4.89 x10^6/uL (3.50-5.40) Hemoglobin 15.1 g/dL (12.0-15.5) Hematocrit 44.7 % (36.0-47.0) Mean Corpuscular Volume 91 fL (79-100) Mean Corpuscular Hemoglobin 31 pg (25-35) Mean Corpuscular Hemoglobin Concent 34 g/dL (31-37) Red Cell Distribution Width 13.6 % (11.5-14.5) Platelet Count 225 x10^3/uL (140-400) Neutrophils (%) (Auto) 64 % (31-73) Lymphocytes (%) (Auto) 30 % (24-48) Monocytes (%) (Auto) 6 % (0-9) Eosinophils (%) (Auto) 1 % (0-3) Basophils (%) (Auto) 0 % (0-3) Neutrophils # (Auto) 4.5 x10^3/uL (1.8-7.7) Lymphocytes # (Auto) 2.1 x10^3/uL (1.0-4.8) Monocytes # (Auto) 0.4 x10^3/uL (0.0-1.1) Eosinophils # (Auto) 0.0 x10^3/uL (0.0-0.7) Basophils # (Auto) 0.0 x10^3/uL (0.0-0.2) Sodium Level 140 mmol/L (136-145) Potassium Level 3.7 mmol/L (3.5-5.1) Chloride Level 105 mmol/L (98-107) Carbon Dioxide Level 23 mmol/L (21-32) Anion Gap 12 (6-14) Blood Urea Nitrogen 22 mg/dL (7-20) H Creatinine 0.9 mg/dL (0.6-1.0) Estimated GFR (Cockcroft-Gault) 72.6 BUN/Creatinine Ratio 24 (6-20) H Glucose Level 108 mg/dL (70-99) H Calcium Level 8.9 mg/dL (8.5-10.1) Total Bilirubin 0.3 mg/dL (0.2-1.0) Aspartate Amino Transferase (AST) 13 U/L (15-37) L Alanine Aminotransferase (ALT) 28 U/L (14-59) Alkaline Phosphatase 73 U/L (46-116) Total Protein 7.5 g/dL (6.4-8.2) Albumin 3.7 g/dL (3.4-5.0) Albumin/Globulin Ratio 1.0 (1.0-1.7) Lipase 94 U/L (73-393) Laboratory Tests 10/20/18 01:12 Laboratory Tests 10/20/18 01:12 EKG EKG [] Radiology/Procedures Radiology/Procedures [] Impressions: PROCEDURE: CT ABD PELV W/ IV CONTRST ONLY PQRS Compliance Statement: One or more of the following individualized dose reduction techniques were utilized for this examination: 1. Automated exposure control 2. Adjustment of the mA and/or kV according to patient size 3. Use of iterative reconstruction technique CT ABD PELV W/ IV CONTRST ONLY Clinical Indication: Upper abdominal pain, nausea, vomiting, diarrhea. Comparison: CT abdomen and pelvis with contrast, April 11, 2018. Technique: Helical CT imaging of the abdomen and pelvis is performed after 75 cc of Omnipaque 300 IV contrast. Oral contrast not given. Findings: There is minimal atelectasis in the bilateral lower lobes. Cardiac size is normal. Cholecystectomy. Liver, spleen, pancreas, adrenal glands, abdominal aorta, and kidneys are normal. Stomach unremarkable. Redemonstrated periumbilical ventral hernia mash. No dilated small bowel. The appendix is normal. No colon wall thickening is seen. No abdominal adenopathy or free fluid. The urinary bladder is normal. Uterus and ovaries unremarkable. No pelvic free fluid. No acute bone abnormality. IMPRESSION: No acute abdominal or pelvic abnormality. Electronically signed by: Jon Murray MD (10/20/2018 2:58 AM) [facility] Course & Med Decision Making Course & Med Decision Making Pertinent Labs and Imaging studies reviewed. (See chart for details) [] Dragon Disclaimer Dragon Disclaimer This electronic medical record was generated, in whole or in part, using a voice recognition dictation system. Departure Departure Impression: Primary Impression: Abdominal pain Additional Impression: Nausea and vomiting Disposition: HOME, SELF-CARE Condition: STABLE Referrals: NO PCP (PCP) Patient Instructions: Abdominal Migraine Scripts Ondansetron Hcl (ZOFRAN) 4 Mg Tablet 4 MG PO PRN TID PRN for NAUSEA, #15 nausea/vomiting Prov: PELON AQUINO Jr. DO 10/20/18 Tramadol Hcl (TRAMADOL HCL) 50 Mg Tablet 50 MG PO Q6HRS PRN for PAIN, #10 TAB Prov: PELON AQUINO Jr. DO 10/20/18 Problem Qualifiers Primary Impression: Abdominal pain Abdominal location: unspecified location Qualified Codes: R10.9 - Unspecified abdominal pain Additional Impression: Nausea and vomiting Vomiting type: unspecified Vomiting Intractability: non-intractable Qualified Codes: R11.2 - Nausea with vomiting, unspecified PELON AQUINO Jr. DO Oct 20, 2018 03:19
[2018-10-20] MEDS ORDERED: ONDA4TAB7 PO (03:38)
[2018-10-20] MEDS ORDERED: TRAM50TA PO (03:38)
[2018-10-20 03:53] VITALS: BP 107/50
== END 2018-10-20 03:55 | disposition home or self-care (01) ==
LOC: ER 00:36
DX: R10.13 Epigastric pain (principal); R11.2 Nausea with vomiting, unspecified; R19.7 Diarrhea, unspecified; M54.6 Pain in thoracic spine; F32.9 Major depressive disorder, single episode, unspecified; E03.9 Hypothyroidism, unspecified; Z90.49 Acquired absence of other specified parts of digestive tract; Z88.1 Allergy status to other antibiotic agents; Z91.040 Latex allergy status
CPT/HCPCS: 36415; 74177; 80053; 81001; 81025; 83690; 85025; 96361; 96374; 96375; 96376; 99285; J2405; J3010; J7030; Q9967

== ENCOUNTER 2018-12-12 23:32 | Emergency (ER) | payer OTHER ==
[~2018-12-12] VITALS: Ht 160 cm; Wt 104.3 kg
[2018-12-12 23:40] VITALS: BP 127/65
--- NOTE | 2018-12-12 23:52 | PHYS DOC ---
Past Medical History Past Medical History: Depression, Hypothyroid, Pancreatitis, Other Additional Past Medical Histor: right ankle fx, hernia, SEPSIS, PYELONEPHRITIS (MARKY MARTIN) Past Surgical History: Cholecystectomy, Other Additional Past Surgical Histo: UMBILICAL HERNIA (MARKY MARTIN) Alcohol Use: Occasionally Drug Use: Marijuana (MARKY MARTIN) Adult General Chief Complaint Chief Complaint: MECHANICAL FALL HPI HPI Patient is a 33 year old female presents to the ED complaining of left rib and right hip pain. States that her and her boyfriend were messing around and accidentally landed on her while they were wrestling. Complains of pain to left ribs and right hip. Describes the pain as sharp. Rates pain is 6 out of 10. Patient has pain with range of motion. Patient able to ambulate without assistance. Denies head/neck injury, LOC, vision changes, weakness, dizziness, chest pain, shortness of breath or nausea/vomiting. (MARKY MARTIN) Review of Systems Review of Systems Constitutional: Denies fever or chills [] Eyes: Denies change in visual acuity, redness, or eye pain [] HENT: Denies nasal congestion or sore throat [] Respiratory: Denies cough or shortness of breath [] Cardiovascular: No additional information not addressed in HPI [] GI: Denies abdominal pain, nausea, vomiting, bloody stools or diarrhea [] : Denies dysuria or hematuria [] Musculoskeletal: Complains of right hip and left rib pain. [] Integument: Denies rash or skin lesions [] Neurologic: Denies headache, focal weakness or sensory changes [] All other systems were reviewed and found to be within normal limits, except as documented in this note. (MARKY MARTIN) Allergies Allergies Allergies Coded Allergies Type Severity Reaction Last Updated Verified cephalexin Allergy Intermediate 12/05/17 Yes latex Allergy Intermediate 12/05/17 Yes (FRANCIA TEMPLETON DO) Physical Exam Physical Exam Constitutional: Well developed, well nourished, no acute distress, non-toxic appearance. [] HENT: Normocephalic, atraumatic Eyes: PERRLA, EOMI, conjunctiva normal, no discharge. [] Neck: Normal range of motion, no tenderness, supple, no stridor. [] Cardiovascular:Heart rate regular rhythm, no murmur [] Lungs & Thorax: Bilateral breath sounds clear to auscultation. Mild left posterior rib tenderness and ecchymosis. Pain with lateral ROM. NV intact. [] Abdomen: Bowel sounds normal, soft, no tenderness, no masses, no pulsatile masses. [] Skin: Warm, dry, no erythema, no rash. [] Back: No tenderness, no CVA tenderness. [] Extremities: Mild right lateral hip tenderness. FROM. NV intact. no cyanosis, no clubbing, ROM intact, no edema. [] Neurologic: Alert and oriented X 3, normal motor function, normal sensory function, no focal deficits noted. [] Psychologic: Affect normal, judgement normal, mood normal. [] (MARKY MARTIN) Current Patient Data Vital Signs Vital Signs Date Time Temp Pulse Resp B/P (MAP) Pulse Ox O2 Delivery O2 Flow Rate FiO2 12/12/18 23:40 98.0 97 16 127/65 (85) 97 Room Air 98.0 (FRANCIA TEMPLETON DO) Lab Values Laboratory Tests Test 12/13/18 00:00 POC Urine HCG, Qualitative Hcg negative (Negative) (FRANCIA TEMPLETON DO) Lab Values Laboratory Tests Test 12/13/18 00:00 POC Urine HCG, Qualitative Hcg negative (Negative) (MARKY MARTIN) EKG EKG [] (MARKY MARTIN) Radiology/Procedures Radiology/Procedures [] (MARKY MARTIN) Radiology/Procedures XR left ribs and CXR (preliminary interpretation by ED physician): No acute fracture or pneumothorax XR right hip: (preliminary interpretation by ED physician) No acute fracture/dislocation. (FRANCIA TEMPLETON DO) Course & Med Decision Making Course & Med Decision Making Pertinent Labs and Imaging studies reviewed. (See chart for details) []Discussed imaging findings with the patient. Patient's pain improved in the ED. States she is feeling much better. Patient able to ambulate without assistance. Discussed symptomatic treatment and follow-up with orthopedics if pain persists. Discussed reasons to return to the ED. Patient understands and agrees with plan. (MARKY MARTIN) Dragon Disclaimer Dragon Disclaimer This electronic medical record was generated, in whole or in part, using a voice recognition dictation system. (MARKY MARTIN) Departure Departure Impression: Primary Impression: Rib contusion Additional Impression: Hip sprain Disposition: HOME, SELF-CARE Condition: IMPROVED Referrals: NO PCP (PCP) TED VALLE MD Patient Instructions: Hip Pain, Rib Contusion Scripts Tramadol Hcl (TRAMADOL HCL) 50 Mg Tablet 50 MG PO Q6HRS PRN for PAIN, #10 TAB 0 Refills Prov: MARKY MARTIN 12/13/18 Attending Signature Attending Signature I have reviewed the PA/[employer] MACHINE OPERATOR's note and plan of care. I was available for consultation as needed during the patient's visit in the emergency department. I agree with the clinical impression, plan, and disposition. (FRANCIA TEMPLETON DO) Problem Qualifiers MARKY MARTIN Dec 12, 2018 23:52 FRANCIA TEMPLETON DO Dec 13, 2018 02:32
[2018-12-13] MEDS ORDERED: TRAM50TA PO (00:31)
--- NOTE | 2018-12-13 02:54 | RAD ---
PA chest and 2 oblique left rib x-rays HISTORY: Left rib injury. FINDINGS: Heart size normal. Mediastinal silhouette is normal. No pneumothorax, pulmonary opacities or pleural effusions. On the far oblique left rib x-ray there is irregularity of the anterior left eighth rib suspicious for a nondisplaced fracture at its junction with the costal cartilage. IMPRESSION: No acute cardiopulmonary process. Probable nondisplaced acute traumatic fracture of the left anterior eighth rib. AP pelvis x-ray and AP and lateral right hip x-rays HISTORY: Injury. FINDINGS: No fracture, dislocation or arthritic change of the right hip. Pelvis intact. Soft tissues are unremarkable. IMPRESSION: No acute osseous injury. Electronically signed by: Melecio Castellanos MD (12/13/2018 2:51 AM) [facility]
== END 2018-12-13 00:35 | disposition home or self-care (01) ==
LOC: ER 23:32
DX: S73.191A Other sprain of right hip, initial encounter (principal); S20.212A Contusion of left front wall of thorax, initial encounter; F32.9 Major depressive disorder, single episode, unspecified; E03.9 Hypothyroidism, unspecified; Z88.1 Allergy status to other antibiotic agents; Z91.040 Latex allergy status; Z90.49 Acquired absence of other specified parts of digestive tract; W50.0XXA Accidental hit or strike by another person, initial encounter; Y93.89 Activity, other specified; Y92.89 Other specified places as the place of occurrence of the external cause; Y99.8 Other external cause status
CPT/HCPCS: 71101; 73502; 81025; 99284

== ENCOUNTER 2019-10-24 18:41 | Emergency (ER) | payer SELFPAY ==
[~2019-10-24] VITALS: Ht 172.7 cm; Wt 68.2 kg
[2019-10-24] MEDS ORDERED: IV NORMAL SALINE 1000ML BAG 1,000 ML IV SCH (19:24)
--- NOTE | 2019-10-24 19:31 | PHYS DOC ---
Past Medical History Past Medical History: Depression, Hypothyroid, Pancreatitis, Other Additional Past Medical Histor: right ankle fx, hernia, SEPSIS, PYELONEPHRITIS Past Surgical History: Cholecystectomy, Other Additional Past Surgical Histo: UMBILICAL HERNIA Smoking Status: Current Every Day Smoker Alcohol Use: Occasionally Drug Use: Marijuana General Adult EDM: Chief Complaint: COUGH HPI: HPI: Patient is a 34 year old female who presents with 4 days of a intermittent right-sided headache that was intermittent but now is continuous but states this is not the worst headache she is ever felt, nausea, right ear pain, nonproductive cough, generalized chest pain with cough, right sided abdominal pain. Patient rates her overall discomfort 8 out of 10. She denies any blurred vision, focal weakness, vomiting, diarrhea, fever, numbness or tingling, syncope, dizziness. Patient has a history of hypothyroidism, cholecystectomy, depression. Review of Systems: Review of Systems: Constitutional: Denies fever or chills. Flushing [] Eyes: Denies change in visual acuity. [] HENT: Denies nasal congestion or sore throat. [] Respiratory: cough or shortness of breath. [] Cardiovascular: Generalized chest pain with cough or denies edema. [] GI: Right sided abdominal pain, nausea, denies vomiting, bloody stools or diarrhea. [] : Denies dysuria. [] Musculoskeletal: Denies back pain or joint pain. [] Integument: Denies rash. [] Neurologic: Right sided headache, denies focal weakness or sensory changes. [] Endocrine: Denies polyuria or polydipsia. [] Lymphatic: Denies swollen glands. [] Psychiatric: Denies depression or anxiety. [] Heart Score: HEART Score for Chest Pain: HEART Score for Chest Pain Response (Comments) Value History Slighlty/Non-Suspicious 0 ECG Normal 0 Age < 45 0 Risk Factors 1 or 2 Risk Factors 1 Troponin < Normal Limit 0 Total 1 Risk Factors: Risk Factors: DM, Current or recent (<one month) smoker, HTN, HLP, family history of CAD, obesity. Risk Scores: Score 0 - 3: 2.5% MACE over next 6 weeks - Discharge Home Score 4 - 6: 20.3% MACE over next 6 weeks - Admit for Clinical Observation Score 7 - 10: 72.7% MACE over next 6 weeks - Early Invasive Strategies Current Medications: Current Medications Medications (Trade) Dose Ordered Sig/Hermes Start Time Stop Time Status Last Admin Dose Admin Sodium Chloride 1,000 ml @ 1,000 mls/hr Q1H 10/24/19 19:24 10/24/19 20:23 Allergies: Allergies: Allergies Coded Allergies Type Severity Reaction Last Updated Verified cephalexin Allergy Intermediate 12/05/17 Yes latex Allergy Intermediate 12/05/17 Yes Physical Exam: PE: Constitutional: Well developed, well nourished, no acute distress, non-toxic appearance. [] HENT: Normocephalic, atraumatic, bilateral external ears normal, oropharynx moist, no oral exudates, nose normal. [] Eyes: PERRLA, EOMI, conjunctiva normal, no discharge. [] Neck: Normal range of motion, no tenderness, supple, no stridor. [] Cardiovascular:Heart rate regular rhythm, no murmur [] Lungs & Thorax: Bilateral breath sounds clear to auscultation [] Abdomen: Bowel sounds normal, soft, Right sided tenderness, no masses, no pulsatile masses. [] Skin: Warm, dry, no erythema, no rash. [] Back: No tenderness, no CVA tenderness. [] Extremities: No tenderness, no cyanosis, no clubbing, ROM intact, no edema. [] Neurologic: Alert and oriented X 3, normal motor function, normal sensory function, no focal deficits noted. [] Psychologic: Affect normal, judgement normal, mood normal. [] EKG: EK and read by Dr Rosario as sinus bradycardia and no STEMI. [] Radiology/Procedures: Radiology/Procedures: [] Impression: [facility] [address] [place], [place] [id number] IMAGING REPORT Signed PATIENT: KARELY THOMPSON ACCOUNT: [id number] : 1985 LOCATION: ER AGE: 34 SEX: F EXAM STATUS: REG ER ORD. PHYSICIAN: JAMIL LAGUNAS APRN REASON: right sided abd pain and tenderness, nausea PROCEDURE: CT ABD PELV W/ IV CONTRST ONLY Exam: CT of abdomen and pelvis with contrast INDICATION: Right-sided abdominal pain and tenderness TECHNIQUE: Sequential axial images through the abdomen and pelvis obtained following the administration of 75 mL of Isovue-370 IV contrast. Sagittal and coronal reformatted images were reconstructed from the axial data and reviewed. Comparisons: 10/20/2018 FINDINGS: Heart size is normal. No pericardial effusion. Strandy opacities at dependent portion lungs likely representing atelectasis. Liver, spleen, pancreas, and adrenals are unremarkable. Gallbladder surgically absent. Kidneys demonstrate symmetric enhancement. No perinephric inflammation or hydronephrosis. No renal or ureteral calculi are identified. Bladder is decompressed not well evaluated. Uterus is not enlarged. 1.9 cm cystic lesion in the right adnexa. Mild wall thickening noted at the sigmoid colon. Remainder of the large and small bowel are unremarkable. Appendix is normal. No free intra-abdominal air or fluid. No obstruction. Abdominal aorta has a normal course and caliber. Abdominal vasculature is patent. No enlarged abdominal lymph nodes are identified. No suspicious osseous lesions or acute fractures. IMPRESSION: 1. Mild wall thickening at the sigmoid colon, correlate for colitis. 2. Cystic lesion at the right adnexa measuring approximately 1.9 cm, likely cystic change in the right ovary. Exposure: One or more of the following in the visualized dose reduction techniques were utilized for this examination: 1. Automated exposure control 2. Adjustment of the MA and/or KV according to patient size 3. Use of iterative of reconstructive technique Electronically signed by: Aaron Cuello MD (10/24/2019 9:02 PM) [id number] DICTATED and SIGNED BY: AARON CUELLO MD DATE: 10/24/[address] [facility] [address] [place] [address] IMAGING REPORT Signed PATIENT: KARELY THOMPSON ACCOUNT: [id number] : 1985 LOCATION: ER AGE: 34 SEX: F EXAM STATUS: REG ER ORD. PHYSICIAN: JAMIL LAGUNAS APRN REASON: cough PROCEDURE: PORTABLE CHEST 1V Exam: Chest one view INDICATION: Cough TECHNIQUE: Frontal view of the chest Comparisons: Chest x-ray 12/12/2018 FINDINGS: The cardiomediastinal silhouette and pulmonary vessels are within normal limits. The lung and pleural spaces are clear. IMPRESSION: No acute cardiopulmonary process. Electronically signed by: Aaron Cuello MD (10/24/2019 8:34 PM) [id number] DICTATED and SIGNED BY: AARON CUELLO MD DATE: 10/24/192033 [facility] [address] [place] [address] IMAGING REPORT Signed PATIENT: KARELY THOMPSON ACCOUNT: [id number] : 1985 LOCATION: ER AGE: 34 SEX: F EXAM STATUS: REG ER ORD. PHYSICIAN: JAMIL LAGUNAS APRN REASON: headache PROCEDURE: CT HEAD WO CONTRAST Exam: CT head INDICATION: Headache TECHNIQUE: Sequential axial images through the head were obtained without the administration of IV contrast. Comparisons: None FINDINGS: No focal parenchymal lesion or hemorrhage is identified. There is no midline shift or sulcal effacement. No acute vascular territory infarction is identified. Rea-white distinction is preserved. The ventricular system is within normal limits without compression hydrocephalus. The basal cisterns are well maintained. The visualized portions of the paranasal sinuses and mastoid air cells are well-pneumatized. No acute fractures. IMPRESSION: No acute intracranial abnormality. Exposure: One or more of the following in the visualized dose reduction techniques were utilized for this examination: 1. Automated exposure control 2. Adjustment of the MA and/or KV according to patient size Use of iterative of reconstructive technique Electronically signed by: Aaron Cuello MD (10/24/2019 9:08 PM) [id number] DICTATED and SIGNED BY: AARON CUELLO MD DATE: 10/24/192107 Course & Med Decision Making: Course & Med Decision Making Pertinent Labs and Imaging studies reviewed. (See chart for details) COVID-19 CRITERIA: The patient was evaluated during the global COVID-19 pandemic, and that diagnosis was suspected/considered upon their initial presentation. Their evaluation, treatment and testing was consistent with current guidelines for patients who present with complaints or symptoms that may be related to COVID-19. Right upper and mid sided abdomen tenderness with palpation. Abdomen otherwise soft and nontender. Skin pink warm and dry. Alert and oriented. Speaks in full complete sentences. PERRLA. No extremity edema. Ambulatory with a steady gait. Lungs are clear to auscultation all lobes. After medications given she states she is feeling much better. Patient is discharged home with antibiotics for colitis and medication for her cough and nausea. [] Dragon Disclaimer: Dragon Disclaimer: This electronic medical record was generated, in whole or in part, using a voice recognition dictation system. NIHSS Stroke Scale NIH Stroke Scale: NIH Stroke Scale Response (Comments) Value Level of Consciousness: 0 Alert/Responsive 0 LOC Questions: 0 Answers both correctly 0 LOC Commands: 0 Performs both tasks 0 Best Gaze: 0 Normal 0 Visual: 0 No visual loss 0 Facial Palsy: 0 Normal, symmetrical 0 Motor - Left Arm 0 No drift 0 Motor - Right Arm 0 No drift 0 Motor - Left Leg 0 No drift 0 Motor: Right Leg 0 No drift 0 Limb Ataxia: 0 Absent 0 Sensory: 0 No loss 0 Best Language: 0 Normal 0 Dysathria: 0 Normal 0 Extinction and Inattention: 0 Normal 0 Total 0 COVID-19 Patient Risks: Age 65 or older: No Sign of co-morbidity: Yes Exp to person + for COVID: No Exp to PUI: No Travel from affected area: No Lower respiratory symptoms: Yes Fever: No Other: No PPE Use: Full PPE with N95 mask or PAPR: Yes Departure Departure Impression: Primary Impression: Cough Additional Impressions: Colitis Nausea Disposition: 01 HOME, SELF-CARE Condition: STABLE Referrals: NEIDA AUGUSTINE MD (PCP) Patient Instructions: Colitis, Cough, Adult, General Headache Without Cause Additional Instructions: Follow-up with primary care provider. Take medications as prescribed and with food. Plenty of fluids to stay hydrated. Scripts Ciprofloxacin Hcl (CIPRO) 500 Mg Tablet 1 TAB PO BID for 7 Days, #14 TAB 0 Refills Prov: BAFJAMIL VIDAL [employer] 7/30/20 Metronidazole (FLAGYL) 500 Mg Tablet 1 TAB PO BID, #14 TAB Prov: BAFGUANAKO VIDALA [employer] 7/30/20 Ondansetron (ONDANSETRON ODT) 4 Mg Tab.rapdis 1 TAB PO PRN Q6-8HRS, #16 TAB Prov: BAFUSSHAHABJAMIL [employer] 7/30/20 Hydrocodone/Apap 5-325 (NORCO 5-325 TABLET) 1 Each Tablet 1 TAB PO PRN Q6HRS PRN for PAIN, #10 TAB 0 Refills Prov: JAMIL LAGUNAS [employer] 10/24/19 Albuterol Sulfate (PROAIR HFA INHALER) 8.5 Gm Hfa.aer.ad 1 PUFF INH PRN Q6HRS PRN for SHORTNESS OF BREATH, #1 INHALER 0 Refills Prov: JMAIL LAGUNAS [employer] 10/24/19 Methylprednisolone (MEDROL) 4 Mg Tab.ds.pk 1 PKG PO UD, #1 PKG Prov: JAMIL LAGUNAS [employer] 10/24/19 Justicifation of Admission Dx: Justifications for Admission: Justification of Admission Dx: N/A JAMIL LAGUNAS [employer] Oct 24, 2019 19:31
[2019-10-24] MEDS ORDERED: DEXAMETHASONE SOD PHOS 4 MG/ML VIAL IVP ONE (19:45)
[2019-10-24] MEDS ORDERED: diphenhydrAMINE 50 MG/ML VIAL IVP ONE (19:45)
[2019-10-24] MEDS ORDERED: PROCHLORPERAZINE 10 MG/2 ML VIAL. IV ONE (19:45)
[2019-10-24] MEDS ORDERED: fentaNYL PF VIAL 100 MCG/2 ML VIAL IVP ONE (19:45)
[2019-10-24 20:00] LABS: BASO % 1 % (0-3); EOS # 0.1 x10^3/uL (0.0-0.7); EOS % 1 % (0-3); HEMATOCRIT 43.2 % (36.0-47.0); HEMOGLOBIN 14.4 g/dL (12.0-15.5); LYMPH # 1.4 x10^3/uL (1.0-4.8); LYMPH % 34 % (24-48); MEAN CORPUSCULAR HEMOGLOBIN 30 pg (25-35); MEAN CORPUSCULAR HGB CONC 33 g/dL (31-37); MEAN CORPUSCULAR VOLUME 90 fL (79-100); MONO # 0.3 x10^3/uL (0.0-1.1); MONO % 8 % (0-9); NEUT # 2.4 x10^3/uL (1.8-7.7); NEUT % 56 % (31-73); PLATELET COUNT 197 x10^3/uL (140-400); RED CELL DISTRIBUTION WIDTH 14.1 % (11.5-14.5); WHITE BLOOD COUNT 4.2 x10^3/uL (4.0-11.0)
[2019-10-24 20:10] LABS: CALCIUM 8.2 mg/dL (8.5-10.1); CREATININE 0.7 mg/dL (0.6-1.0); GFR 96.4; POTASSIUM 3.6 mmol/L (3.5-5.1)
[2019-10-24 20:13] LABS: BILIRUBIN,URINE NEGATIVE (NEG); CLARITY,URINE CLEAR; COLOR,URINE YELLOW; NITRITE,URINE NEGATIVE (NEG); PH,URINE 6.5 (<5.0-8.0); PROTEIN,URINE NEGATIVE (NEG-TRACE); UROBILINOGEN,URINE 0.2 mg/dL (0.2 mg/dL)
[2019-10-24 20:14] LABS: ALBUMIN 3.2 g/dL (3.4-5.0); ALBUMIN/GLOBULIN RATIO 0.9 (1.0-1.7); TOTAL BILIRUBIN 0.4 mg/dL (0.2-1.0); TOTAL PROTEIN 6.6 g/dL (6.4-8.2)
[2019-10-24 20:14] LABS: BACTERIA,URINE 0 /HPF (0-FEW); RBC,URINE RARE /HPF (0-2); SQUAMOUS EPITHELIAL CELL,UR OCC /LPF; WBC,URINE 0 /HPF (0-4)
[2019-10-24 20:15] LABS: BARBITURATES NEG (NEG); BENZODIAZEPINES NEG (NEG); CANNABINOIDS POS (NEG); COCAINE NEG (NEG); METHADONE NEG (NEG); OPIATES POS (NEG); PHENCYCLIDINE NEG (NEG)
[2019-10-24 20:17] LABS: AMPHETAMINE/METHAMPHETAMINE NEG (NEG)
[2019-10-24] MEDS ORDERED: CONTRAST GIVEN. MC PRN (20:30)
[2019-10-24] MEDS ORDERED: IOHEXOL 300 MG/ML 100ML VIAL. IV ONE (20:30)
--- NOTE | 2019-10-24 20:37 | RAD ---
Exam: Chest one view INDICATION: Cough TECHNIQUE: Frontal view of the chest Comparisons: Chest x-ray 12/12/2018 FINDINGS: The cardiomediastinal silhouette and pulmonary vessels are within normal limits. The lung and pleural spaces are clear. IMPRESSION: No acute cardiopulmonary process. Electronically signed by: Aaron Barraza MD (10/24/2019 8:34 PM) [id number]
--- NOTE | 2019-10-24 21:05 | RAD ---
Exam: CT of abdomen and pelvis with contrast INDICATION: Right-sided abdominal pain and tenderness TECHNIQUE: Sequential axial images through the abdomen and pelvis obtained following the administration of 75 mL of Isovue-370 IV contrast. Sagittal and coronal reformatted images were reconstructed from the axial data and reviewed. Comparisons: 10/20/2018 FINDINGS: Heart size is normal. No pericardial effusion. Strandy opacities at dependent portion lungs likely representing atelectasis. Liver, spleen, pancreas, and adrenals are unremarkable. Gallbladder surgically absent. Kidneys demonstrate symmetric enhancement. No perinephric inflammation or hydronephrosis. No renal or ureteral calculi are identified. Bladder is decompressed not well evaluated. Uterus is not enlarged. 1.9 cm cystic lesion in the right adnexa. Mild wall thickening noted at the sigmoid colon. Remainder of the large and small bowel are unremarkable. Appendix is normal. No free intra-abdominal air or fluid. No obstruction. Abdominal aorta has a normal course and caliber. Abdominal vasculature is patent. No enlarged abdominal lymph nodes are identified. No suspicious osseous lesions or acute fractures. IMPRESSION: 1. Mild wall thickening at the sigmoid colon, correlate for colitis. 2. Cystic lesion at the right adnexa measuring approximately 1.9 cm, likely cystic change in the right ovary. Exposure: One or more of the following in the visualized dose reduction techniques were utilized for this examination: 1. Automated exposure control 2. Adjustment of the MA and/or KV according to patient size 3. Use of iterative of reconstructive technique Electronically signed by: Aaron Barraza MD (10/24/2019 9:02 PM) [id number]
--- NOTE | 2019-10-24 21:11 | RAD ---
Exam: CT head INDICATION: Headache TECHNIQUE: Sequential axial images through the head were obtained without the administration of IV contrast. Comparisons: None FINDINGS: No focal parenchymal lesion or hemorrhage is identified. There is no midline shift or sulcal effacement. No acute vascular territory infarction is identified. Rea-white distinction is preserved. The ventricular system is within normal limits without compression hydrocephalus. The basal cisterns are well maintained. The visualized portions of the paranasal sinuses and mastoid air cells are well-pneumatized. No acute fractures. IMPRESSION: No acute intracranial abnormality. Exposure: One or more of the following in the visualized dose reduction techniques were utilized for this examination: 1. Automated exposure control 2. Adjustment of the MA and/or KV according to patient size Use of iterative of reconstructive technique Electronically signed by: Aaron Barraza MD (10/24/2019 9:08 PM) [id number]
[2019-10-24] MEDS ORDERED: HYDR-3164 PO (21:23)
[2019-10-24] MEDS ORDERED: ONDA4TAB12 PO (21:23)
[2019-10-24] MEDS ORDERED: METH4TAB2 PO (21:23)
[2019-10-24] MEDS ORDERED: ALBU2.5V8 INH (21:23)
[2019-10-24] MEDS ORDERED: METR500T PO (21:25)
[2019-10-24] MEDS ORDERED: CIPR500T94 PO (21:25)
[2019-10-24 21:48] VITALS: BP 135/65
[2019-10-25] MEDS ORDERED: IOHEXOL 300 MG/ML 100ML VIAL. ONE (02:53)
--- NOTE | 2019-10-28 13:40 | EKG ---
[facility] [address] [place] [address] Test Date: 2019-10-24 Test Time: 19:07:54 Pat Name: KARELY THOMPSON Department: Room: Gender: F Manager Math: : 1985 Requested By: JAMIL LAGUNAS Order Number: [id number] Reading MD: Measurements Intervals [place] Rate: 47 P: 0 [place]: 164 QRS: 2 QRSD: 88 T: 8 QT: 434 QTc: 388 Interpretive Statements SINUS BRADYCARDIA NO SPECIFIC ECG ABNORMALITIES RI6.01 No previous ECG available for comparison
--- NOTE | 2019-10-28 15:40 | NUR ---
Called patient to discuss her negative COVID test results. (Alfredo Freire RN)
== END 2019-10-24 22:15 | disposition home or self-care (01) ==
LOC: ER 18:41
DX: K52.9 Noninfective gastroenteritis and colitis, unspecified (principal); Z20.828 Contact with and (suspected) exposure to other viral communicable diseases; R05 Cough; R11.0 Nausea; R07.89 Other chest pain; R51 Headache; H92.01 Otalgia, right ear; R00.1 Bradycardia, unspecified; E03.9 Hypothyroidism, unspecified; F17.200 Nicotine dependence, unspecified, uncomplicated; Z90.49 Acquired absence of other specified parts of digestive tract; Z98.890 Other specified postprocedural states; Z88.1 Allergy status to other antibiotic agents; Z91.040 Latex allergy status
CPT/HCPCS: 36415; 70450; 71045; 74177; 80053; 80307; 81001; 81025; 83690; 83880; 84484; 85025; 93005; 96361; 96374; 96375; 99285; J0780; J1100; J1200; J3010; J7030; Q9967; U0003

== ENCOUNTER 2020-01-24 22:26 | Emergency (ER) | payer SELFPAY ==
[~2020-01-24] VITALS: Ht 160 cm; Wt 103.1 kg
[~2020-01-24 22:26] MED LIST changes: +CIPR500T94 PO; +METH4TAB2 PO; +ONDA4TAB12 PO
--- NOTE | 2020-01-24 22:53 | ED.ADGEN ---
Past Medical History Past Medical History: No Pertinent History Additional Past Medical Histor: right ankle fx, hernia, SEPSIS, PYELONEPHRITIS Past Surgical History: No Surgical History Additional Past Surgical Histo: UMBILICAL HERNIA Smoking Status: Current Every Day Smoker Alcohol Use: None Drug Use: Marijuana General Adult EDM: Chief Complaint: RIB PAIN HPI: HPI: Patient is a 34 year old female coming in for left flank pain. Says the pain has been there for about 8 days, has had about 1 month of nonproductive coughing. Denies any changes in urine. Pain is worse with movements. Says it comes and goes and is not worse with taking a deep breath. Review of Systems: Review of Systems: Constitutional: Denies fever or chills. [] Eyes: Denies change in visual acuity. [] HENT: Denies nasal congestion or sore throat. [] Respiratory: Denies cough or shortness of breath. [] Cardiovascular: Denies chest pain or edema. [] GI: Denies abdominal pain, nausea, vomiting, bloody stools or diarrhea. [] : Denies dysuria. [] Musculoskeletal: Denies back pain or joint pain. [] Integument: Denies rash. [] Neurologic: Denies headache, focal weakness or sensory changes. [] Endocrine: Denies polyuria or polydipsia. [] Lymphatic: Denies swollen glands. [] Psychiatric: Denies depression or anxiety. [] Current Medications: Current Medications Medications (Trade) Dose Ordered Sig/Hermes Start Time Stop Time Status Last Admin Dose Admin Fentanyl Citrate (Fentanyl 2ml Vial) 75 mcg 1X ONCE 01/24/20 23:15 01/24/20 23:16 DC 01/24/20 23:36 75 MCG Allergies: Allergies: Allergies Coded Allergies Type Severity Reaction Last Updated Verified cephalexin Allergy Intermediate 12/05/17 Yes latex Allergy Intermediate 12/05/17 Yes Physical Exam: PE: Constitutional: Well developed, well nourished, no acute distress, non-toxic appearance. [] HENT: Normocephalic, atraumatic, bilateral external ears normal, oropharynx moist, no oral exudates, nose normal. [] Eyes: PERRLA, EOMI, conjunctiva normal, no discharge. [] Neck: Normal range of motion, no tenderness, supple, no stridor. [] Cardiovascular:Heart rate regular rhythm, no murmur [] Lungs & Thorax: Bilateral breath sounds clear to auscultation [] Abdomen: Bowel sounds normal, soft, no tenderness, no masses, no pulsatile masses. [] Skin: Warm, dry, no erythema, no rash. [] Back: No tenderness, no CVA tenderness. [] Extremities: No tenderness, no cyanosis, no clubbing, ROM intact, no edema. [] Neurologic: Alert and oriented X 3, normal motor function, normal sensory function, no focal deficits noted. [] Psychologic: Affect normal, judgement normal, mood normal. [] Current Patient Data: Labs: Laboratory Tests Test 01/24/20 22:32 01/24/20 22:40 01/24/20 23:30 Urine Collection Type Void Urine Color Yellow Urine Clarity Clear Urine pH 5.5 (<5.0-8.0) Urine Specific [place] 1.025 (1.000-1.030) Urine Protein Negative mg/dL (NEG-TRACE) Urine Glucose (UA) Negative mg/dL (NEG) Urine Ketones (Stick) Trace mg/dL (NEG) Urine Blood Negative (NEG) Urine Nitrite Negative (NEG) Urine Bilirubin Small (NEG) Urine Urobilinogen Dipstick 1.0 mg/dL (0.2 mg/dL) Urine Leukocyte Esterase Negative (NEG) Urine RBC Rare /HPF (0-2) Urine WBC 0 /HPF (0-4) Urine Squamous Epithelial Cells Many /LPF Urine Bacteria Many /HPF (0-FEW) Urine Mucus Marked /LPF POC Urine HCG, Qualitative Hcg negative (Negative) White Blood Count 6.5 x10^3/uL (4.0-11.0) Red Blood Count 4.87 x10^6/uL (3.50-5.40) Hemoglobin 14.8 g/dL (12.0-15.5) Hematocrit 43.8 % (36.0-47.0) Mean Corpuscular Volume 90 fL (79-100) Mean Corpuscular Hemoglobin 30 pg (25-35) Mean Corpuscular Hemoglobin Concent 34 g/dL (31-37) Red Cell Distribution Width 13.4 % (11.5-14.5) Platelet Count 228 x10^3/uL (140-400) Neutrophils (%) (Auto) 70 % (31-73) Lymphocytes (%) (Auto) 22 % (24-48) L Monocytes (%) (Auto) 7 % (0-9) Eosinophils (%) (Auto) 1 % (0-3) Basophils (%) (Auto) 0 % (0-3) Neutrophils # (Auto) 4.5 x10^3/uL (1.8-7.7) Lymphocytes # (Auto) 1.4 x10^3/uL (1.0-4.8) Monocytes # (Auto) 0.4 x10^3/uL (0.0-1.1) Eosinophils # (Auto) 0.0 x10^3/uL (0.0-0.7) Basophils # (Auto) 0.0 x10^3/uL (0.0-0.2) Prothrombin Time 12.8 SEC (11.7-14.0) Prothrombin Time INR 1.0 (0.8-1.1) D-Dimer (Amanda) < 0.27 ug/mlFEU Sodium Level 144 mmol/L (136-145) Potassium Level 3.8 mmol/L (3.5-5.1) Chloride Level 106 mmol/L (98-107) Carbon Dioxide Level 25 mmol/L (21-32) Anion Gap 13 (6-14) Blood Urea Nitrogen 12 mg/dL (7-20) Creatinine 0.6 mg/dL (0.6-1.0) Estimated GFR (Cockcroft-Gault) 115.1 BUN/Creatinine Ratio 20 (6-20) Glucose Level 105 mg/dL (70-99) H Calcium Level 8.5 mg/dL (8.5-10.1) Total Bilirubin 0.4 mg/dL (0.2-1.0) Aspartate Amino Transferase (AST) 13 U/L (15-37) L Alanine Aminotransferase (ALT) 24 U/L (14-59) Alkaline Phosphatase 64 U/L (46-116) Troponin I Quantitative < 0.017 ng/mL (0.000-0.055) Total Protein 6.8 g/dL (6.4-8.2) Albumin 3.8 g/dL (3.4-5.0) Albumin/Globulin Ratio 1.3 (1.0-1.7) Laboratory Tests 01/24/20 23:30 Laboratory Tests 01/24/20 23:30 Vital Signs: Vital Signs Date Time Temp Pulse Resp B/P (MAP) Pulse Ox O2 Delivery O2 Flow Rate FiO2 01/24/20 23:36 99 Room Air 01/24/20 22:33 98.6 83 18 144/86 (105) 98.6 EKG: EKG: [] Heart Score: Risk Factors: Risk Factors: DM, Current or recent (<one month) smoker, HTN, HLP, family history of CAD, obesity. Risk Scores: Score 0 - 3: 2.5% MACE over next 6 weeks - Discharge Home Score 4 - 6: 20.3% MACE over next 6 weeks - Admit for Clinical Observation Score 7 - 10: 72.7% MACE over next 6 weeks - Early Invasive Strategies Radiology/Procedures: Radiology/Procedures: PROCEDURE: CHEST PA & LATERAL INDICATION: Reason: left chest pain / Spl. Instructions: / History: COMPARISON: October 24, 2019 FINDINGS: 2 view of chest obtained. Degenerative changes the spine. No focal airspace consolidation or pulmonary edema. Cardiac silhouette unremarkable IMPRESSION: * No focal airspace consolidation or edema. [] Course & Med Decision Making: Course & Med Decision Making Pertinent Labs and Imaging studies reviewed. (See chart for details) [] Dragon Disclaimer: Dragon Disclaimer: This electronic medical record was generated, in whole or in part, using a voice recognition dictation system. Departure Departure Impression: Primary Impression: Left flank pain Disposition: 01 DC HOME SELF CARE/HOMELESS Condition: STABLE Referrals: NEIDA AUGUSTINE MD (PCP) Patient Instructions: Chest Wall Pain SAEID BRIONES MD Jan 24, 2020 22:52
[2020-01-24 22:58] LABS: BILIRUBIN,URINE SMALL (NEG); CLARITY,URINE CLEAR; COLOR,URINE YELLOW; NITRITE,URINE NEGATIVE (NEG); PH,URINE 5.5 (<5.0-8.0); PROTEIN,URINE NEGATIVE (NEG-TRACE)
[2020-01-24 23:04] LABS: BACTERIA,URINE MANY /HPF (0-FEW)
[2020-01-24 23:06] LABS: RBC,URINE RARE /HPF (0-2); WBC,URINE 0 /HPF (0-4)
[2020-01-24] MEDS ORDERED: fentaNYL PF VIAL 100 MCG/2 ML VIAL IVP ONE (23:15)
[2020-01-24 23:44] LABS: BASO % 0 % (0-3); EOS % 1 % (0-3); HEMATOCRIT 43.8 % (36.0-47.0); HEMOGLOBIN 14.8 g/dL (12.0-15.5); LYMPH # 1.4 x10^3/uL (1.0-4.8); LYMPH % 22 % (24-48); MEAN CORPUSCULAR HEMOGLOBIN 30 pg (25-35); MEAN CORPUSCULAR HGB CONC 34 g/dL (31-37); MEAN CORPUSCULAR VOLUME 90 fL (79-100); MONO # 0.4 x10^3/uL (0.0-1.1); MONO % 7 % (0-9); NEUT # 4.5 x10^3/uL (1.8-7.7); NEUT % 70 % (31-73); PLATELET COUNT 228 x10^3/uL (140-400); RED BLOOD COUNT 4.87 x10^6/uL (3.50-5.40); RED CELL DISTRIBUTION WIDTH 13.4 % (11.5-14.5); WHITE BLOOD COUNT 6.5 x10^3/uL (4.0-11.0)
[2020-01-24 23:52] LABS: PROTHROMBIN TIME PATIENT 12.8 SEC (11.7-14.0)
[2020-01-24 23:56] LABS: D-DIMER < 0.27 ug/mlFEU (0.00-0.50)
[2020-01-24 23:58] LABS: CALCIUM 8.5 mg/dL (8.5-10.1); CREATININE 0.6 mg/dL (0.6-1.0); GFR 115.1; POTASSIUM 3.8 mmol/L (3.5-5.1)
[2020-01-25 00:03] LABS: ALBUMIN 3.8 g/dL (3.4-5.0); ALBUMIN/GLOBULIN RATIO 1.3 (1.0-1.7); TOTAL BILIRUBIN 0.4 mg/dL (0.2-1.0); TOTAL PROTEIN 6.8 g/dL (6.4-8.2)
--- NOTE | 2020-01-25 00:29 | RAD ---
INDICATION: Reason: left chest pain / Spl. Instructions: / History: COMPARISON: October 24, 2019 FINDINGS: 2 view of chest obtained. Degenerative changes the spine. No focal airspace consolidation or pulmonary edema. Cardiac silhouette unremarkable IMPRESSION: * No focal airspace consolidation or edema. Electronically signed by: Braxton Carrero MD (01/25/2020 12:27 AM) [id number]
[2020-01-25 01:00] VITALS: BP 118/66
[2020-01-25] MEDS ORDERED: KETOROLAC 15 MG/ML VIAL. IVP ONE (01:00)
== END 2020-01-25 01:11 | disposition home or self-care (01) ==
LOC: ER 22:26
DX: R10.9 Unspecified abdominal pain (principal); R05 Cough; F17.200 Nicotine dependence, unspecified, uncomplicated; F12.90 Cannabis use, unspecified, uncomplicated; Z98.890 Other specified postprocedural states; Z91.040 Latex allergy status; Z88.1 Allergy status to other antibiotic agents
CPT/HCPCS: 36415; 71046; 80053; 81001; 81025; 84484; 85025; 85379; 85610; 87086; 96374; 96375; 99285; J1885; J3010

== ENCOUNTER 2020-08-09 16:57 | Emergency (ER) | payer SELFPAY ==
[~2020-08-09] VITALS: Ht 160 cm; Wt 100.0 kg
[~2020-08-09 16:57] MED LIST changes: +ACET325T21 PO; +BUDE0.5A NEB; -CIPR500T PO; +CIPR500T2 PO; +DOCU-153 PO; +GUAI100L12 PO; +IPRA3AMP29 NEB; +LACT1CAP19 PO; +LEVO500T8 PO; +MAG30ORA2 PO; +NAPR-699 PO; -NAPR250T6 PO; +PRED50TA PO
[2020-08-09] MEDS ORDERED: IPRATRPIUM/ALBUTEROL 0.5/2.5MG 3 ML NEBU. NEB ONE (19:45)
[2020-08-09] MEDS ORDERED: predniSONE 10 MG TABLET PO ONE (20:00)
[2020-08-09] MEDS ORDERED: ONDANSETRON ODT 4 MG TAB.RAPDIS. PO ONE (20:30)
[2020-08-09] MEDS ORDERED: HYDROcodone/APAP 7.5/325MG 1 TAB TABLET PO ONE (20:30)
[2020-08-09] MEDS ORDERED: NAPR-514 PO (21:33)
[2020-08-09] MEDS ORDERED: PENI500T PO (21:33)
--- NOTE | 2020-08-09 21:33 | ED.ADGEN ---
Past Medical History Past Medical History: Pneumonia, Other Additional Past Medical Histor: right ankle fx, hernia, SEPSIS, PYELONEPHRITIS Past Surgical History: Other Additional Past Surgical Histo: UMBILICAL HERNIA; Smoking Status: Current Some Day Smoker Alcohol Use: None Drug Use: Marijuana General Adult EDM: Chief Complaint: Congestion HPI: HPI: Is a 35-year-old female who presents to the emergency department with complaints of chest congestion and inability to fill the medications that were prescribed to her after she was discharged from this facility 2 days ago with pneumonia. Patient states that the medications were prescribed are going to cost over $700. She cannot afford the budesonide that was prescribed it is over $400 alone. She complains of chest congestion, continued cough, nausea, headache, and sore throat. Patient states that the excessive mucus is causing her to vomit occasion ally. She denies any abdominal pain, palpitations, fever, dizziness, syncope, chills, or body aches. Patient denies any concerns of COVID-19, she states that she tested negative last week. She currently rates her pain 8 out of 10 on the pain scale, she denies any alleviating factors. Current Medications: Current Medications Medications (Trade) Dose Ordered Sig/Hermes Start Time Stop Time Status Last Admin Dose Admin Acetaminophen/ Hydrocodone Bitart (Lortab 7.5/325) 1 tab 1X ONCE 08/09/20 20:30 08/09/20 20:31 DC 08/09/20 20:30 1 TAB Albuterol/ Ipratropium (Duoneb) 3 ml 1X ONCE 08/09/20 19:45 08/09/20 19:46 DC 08/09/20 20:00 3 ML Ondansetron HCl (Zofran Odt) 4 mg 1X ONCE 08/09/20 20:30 08/09/20 20:31 DC 08/09/20 20:30 4 MG Prednisone (Prednisone) 50 mg 1X ONCE 08/09/20 20:00 08/09/20 20:01 DC 08/09/20 20:12 50 MG Allergies: Allergies: Allergies Coded Allergies Type Severity Reaction Last Updated Verified cephalexin Allergy Intermediate 12/05/17 Yes latex Allergy Intermediate 12/05/17 Yes azithromycin Adverse Reaction Mild Nausea 08/07/20 Yes Physical Exam: PE: Constitutional: Well developed, well nourished, no acute distress, non-toxic appearance. [] HENT: Normocephalic, atraumatic, bilateral external ears normal, nose normal. [] Eyes: PERRLA, EOMI, conjunctiva normal, no discharge. [] Neck: Normal range of motion, no stridor. [] Cardiovascular:Heart rate regular rhythm Lungs & Thorax: Respirations even and unlabored, no retractions, no respiratory distress, diminished-rhonchi posterior Abdomen: soft, no tenderness Skin: Warm, dry, no erythema, no rash. [] Extremities: No cyanosis, ROM intact, no edema. [] Neurologic: Alert and oriented X 3, normal motor, normal sensory, no focal deficits noted. [] Psychologic: Affect normal, judgement normal, mood normal. [] Current Patient Data: Labs: Laboratory Tests Test 08/09/20 18:44 POC Urine HCG, Qualitative Hcg negative (Negative) Vital Signs: Vital Signs Date Time Temp Pulse Resp B/P (MAP) Pulse Ox O2 Delivery O2 Flow Rate FiO2 08/09/20 21:57 59 20 137/60 (85) 95 Room Air 08/09/20 19:19 98.5 98.5 EKG: EKG: [] Heart Score: C/O Chest Pain: No Risk Scores: Score 0 - 3: 2.5% MACE over next 6 weeks - Discharge Home Score 4 - 6: 20.3% MACE over next 6 weeks - Admit for Clinical Observation Score 7 - 10: 72.7% MACE over next 6 weeks - Early Invasive Strategies Radiology/Procedures: Radiology/Procedures: [] Course & Med Decision Making: Course & Med Decision Making Pertinent Labs and Imaging studies reviewed. (See chart for details) 35-year-old female presents emergency department with multiple complaints and reports of not being able to afford the medications that were prescribed to her. I reviewed the medications that were prescribed. There were a total of 8 prescriptions. Patient stated that they would not fill just one of the prescriptions they had to fill all of them because they were all prescribed at the same time. Patient was given a breathing treatment and 60 of p.o. prednisone in the emergency department she reported feeling better after these medication. Her oxygen saturation remained above 95% while she was here. Will write prescriptions for Levaquin, albuterol nebulizer vials, and prednisone as previously prescribed 2 days ago. I encouraged patient to follow-up with her primary care doctor as scheduled this week, return to the ER if her breathing worsened or she developed a fever. Patient verbalized an understanding of home care, medications, follow-up, and return to ED instructions and was in agreement with the plan of care. [] The patient was seen and interviewed as well as examined at the bedside. The chart was reviewed. The case was discussed. Agree with the plan of care. Dragon Disclaimer: Dragon Disclaimer: This electronic medical record was generated, in whole or in part, using a voice recognition dictation system. Departure Departure Impression: Primary Impression: Pneumonia Disposition: HOME / SELF CARE / HOMELESS Condition: STABLE Referrals: NEIDA AUGUSTINE MD (PCP) Patient Instructions: Pneumonia, Adult, [id number] Additional Instructions: Fill prescription(s) and use as directed. Alternate Tylenol or ibuprofen as needed for pain/fever. Increase clear fluids. Avoid airway triggers such as smoke, fragrance, dust, and pollen. May take [id number] cough suppressants as needed. Follow-up with your primary care doctor in 1-2 days, return to the ER if symptoms worsen or fever develops. Scripts Albuterol Sulfate (ALBUTEROL SULFATE NEB SOLN) 2.5 Mg/3 Ml Vial.neb 1 VIAL NEB PRN Q4HRS PRN for WHEEZING for 30 Days, #50 VIAL 1 Refill Prov: FELIZ SAMSON APRN 08/09/20 Prednisone (PREDNISONE) 50 Mg Tablet 1 TAB PO DAILY for 5 Days, #5 TAB 0 Refills Prov: FELIZ SAMSON APRN 08/09/20 Levofloxacin (LEVOFLOXACIN) 500 Mg Tablet 1 TAB PO DAILY, #10 TAB 0 Refills Prov: FELIZ SAMSON APRN 08/09/20 Problem Qualifiers Primary Impression: Pneumonia Pneumonia type: due to unspecified organism Laterality: unspecified laterality Lung location: unspecified part of lung Qualified Codes: J18.9 - Pneumonia, unspecified organism FELIZ SAMSON APRN August 09, 2020 21:33 LILY JAIMES DO August 12, 2020 18:53
[2020-08-09] MEDS ORDERED: PRED50TA PO (21:50)
[2020-08-09] MEDS ORDERED: LEVO500T8 PO (21:50)
[2020-08-09] MEDS ORDERED: ALBU2.5V5 NEB (21:50)
[2020-08-09 21:57] VITALS: BP 137/60
== END 2020-08-09 21:59 | disposition home or self-care (01) ==
LOC: ER 16:57
DX: J18.9 Pneumonia, unspecified organism (principal); F12.10 Cannabis abuse, uncomplicated; Z98.890 Other specified postprocedural states
CPT/HCPCS: 81025; 94640; 99285; J7512; 99284-25

== ENCOUNTER 2020-10-14 21:05 | Emergency (ER) | payer SELFPAY ==
[~2020-10-14] VITALS: Ht 160 cm; Wt 103.0 kg
[~2020-10-14 21:05] MED LIST changes: +ALBU2.5V5 NEB; +DOCU-148 PO; -DOCU-153 PO; +NAPR-514 PO; +PENI500T PO
[2020-10-14 23:29] LABS: BARBITURATES NEG (NEG); BENZODIAZEPINES NEG (NEG); CANNABINOIDS POS (NEG); COCAINE NEG (NEG); METHADONE NEG (NEG); OPIATES NEG (NEG); PHENCYCLIDINE NEG (NEG)
[2020-10-14 23:33] LABS: AMPHETAMINE/METHAMPHETAMINE NEG (NEG)
[2020-10-14 23:53] LABS: BASO % 0 % (0-3); EOS % 0 % (0-3); HEMATOCRIT 46.3 % (36.0-47.0); HEMOGLOBIN 15.7 g/dL (12.0-15.5); LYMPH % 25 % (24-48); MEAN CORPUSCULAR HEMOGLOBIN 31 pg (25-35); MEAN CORPUSCULAR HGB CONC 34 g/dL (31-37); MEAN CORPUSCULAR VOLUME 90 fL (79-100); MONO # 0.2 x10^3/uL (0.0-1.1); MONO % 5 % (0-9); NEUT # 2.9 x10^3/uL (1.8-7.7); NEUT % 70 % (31-73); PLATELET COUNT 235 x10^3/uL (140-400); RED BLOOD COUNT 5.12 x10^6/uL (3.50-5.40); RED CELL DISTRIBUTION WIDTH 14.5 % (11.5-14.5); WHITE BLOOD COUNT 4.1 x10^3/uL (4.0-11.0)
[2020-10-15 00:02] LABS: CALCIUM 8.9 mg/dL (8.5-10.1); CREATININE 0.5 mg/dL (0.6-1.0); GFR 141.2; POTASSIUM 3.9 mmol/L (3.5-5.1)
[2020-10-15 00:07] LABS: ALBUMIN 3.5 g/dL (3.4-5.0); TOTAL BILIRUBIN 0.4 mg/dL (0.2-1.0); TOTAL PROTEIN 7.1 g/dL (6.4-8.2)
[2020-10-15] MEDS ORDERED: ALPRAZolam 0.5 MG TABLET PO ONE (00:15)
[2020-10-15 00:17] LABS: ACETAMIN < 2 mcg/ml (10-30); ETHANOL < 10 mg/dL (0-10); SALIC 6.7 mg/dL (2.8-20.0)
[2020-10-15 00:58] LABS: BILIRUBIN,URINE NEGATIVE (NEG); CLARITY,URINE CLEAR; COLOR,URINE YELLOW; NITRITE,URINE NEGATIVE (NEG); PROTEIN,URINE NEGATIVE (NEG-TRACE); UROBILINOGEN,URINE 0.2 mg/dL (0.2 mg/dL)
[2020-10-15 01:05] LABS: BACTERIA,URINE FEW /HPF (0-FEW); RBC,URINE 0 /HPF (0-2); WBC,URINE OCC /HPF (0-4)
[2020-10-15] MEDS ORDERED: HYDROcodone/APAP 5/325MG 1 TAB TABLET PO ONE (02:30)
[2020-10-15] MEDS ORDERED: ONDANSETRON ODT 4 MG TAB.RAPDIS. PO ONE (02:30)
--- NOTE | 2020-10-15 04:17 | PHYS DOC ---
Past Medical History Past Medical History: Pneumonia, Other Additional Past Medical Histor: right ankle fx, hernia, SEPSIS, PYELONEPHRITIS Past Surgical History: Other Additional Past Surgical Histo: UMBILICAL HERNIA; Smoking Status: Current Some Day Smoker Alcohol Use: None Drug Use: Marijuana General Adult EDM: Chief Complaint: SUICDAL IDEATION HPI: HPI: Patient is a 35 year [id number] female presents for evaluation of depression. Patient states she has been depressed for the last several weeks. Patient states she has been off her depression medications for 2 weeks. States she has been in a relationship with a single man who is been cheating on her. Patient also states she has had pelvic discomfort with painful urination and discharge. She states she is concerned about an STD. Patient states because of her depression she has thought of suicide. She has no specific plan. She denies any previous hospitalizations for SI. Review of Systems: Review of Systems: Review of systems: Constitutional symptoms- No fever, no chills. Eyes- No Discharge, No Visual Loss Respiratory symptoms- No shortness of breath, No wheezing, No Dyspnea on Exertion Cardiovascular Systems; No chest pain, No Palpitations, No syncope Gastrointestinal symptoms: NO abdominal pain, no nausea, no vomiting or diarrhea. Genitourinary symptoms: Positive dysuria positive vaginal discharge Musculoskeletal symptoms: No back pain No extremity pain. NEUROLOGICAL Symptoms: No headache, no generalized weakness; No focal Weakness Skin: No rash. Psych; positive depression positive suicidal thoughts no homicidal thoughts Heart Score: C/O Chest Pain: N/A Risk Factors: Risk Factors: DM, Current or recent (<one month) smoker, HTN, HLP, family history of CAD, obesity. Risk Scores: Score 0 - 3: 2.5% MACE over next 6 weeks - Discharge Home Score 4 - 6: 20.3% MACE over next 6 weeks - Admit for Clinical Observation Score 7 - 10: 72.7% MACE over next 6 weeks - Early Invasive Strategies Current Medications: Current Medications Medications (Trade) Dose Ordered Sig/Hermes Start Time Stop Time Status Last Admin Dose Admin Acetaminophen/ Hydrocodone Bitart (Lortab 5/325) 1 tab 1X ONCE 10/15/20 02:30 10/15/20 02:31 DC 10/15/20 02:34 1 TAB Alprazolam (Xanax) 0.5 mg 1X ONCE 10/15/20 00:15 10/15/20 00:16 DC 10/15/20 00:27 0.5 MG Ondansetron HCl (Zofran Odt) 4 mg 1X ONCE 10/15/20 02:30 10/15/20 02:31 DC 10/15/20 02:34 4 MG Allergies: Allergies: Allergies Coded Allergies Type Severity Reaction Last Updated Verified cephalexin Allergy Intermediate 12/05/17 Yes latex Allergy Intermediate 12/05/17 Yes azithromycin Adverse Reaction Mild Nausea 08/07/20 Yes Physical Exam: PE: - bGeneral: alert, no acute distress. Skin: warm, dry and intact, no erythema, no rash. HENT: bilateral external ears normal, oropharynx moist, nose normal. Head:: Normocephalic, atraumatic. Neck: Trachea midline. Eyes: EOMI, Normal conjunctiva, No drainage CARDIOVASCULAR: Regular rate and rhythm RESPIRATORY: No respiratory distress Back: Full range of motion. MUSCULOSKELETAL: Full range of motion of bilateral upper and lower extremities. GASTROINTESTINAL: Abdomen soft without rebound or guarding. NEUROLOGICAL: Alert and noted to person, place and time. No neurological def icits observed Psychiatric: Cooperative. Normal judgment : Pelvic exam performed with nursing customer sales advisor. External vagina within normal limits. Patient with positive vaginal discharge- dark brown Current Patient Data: Labs: Laboratory Tests Test 10/14/20 21:15 10/14/20 21:41 10/14/20 23:45 10/15/20 00:01 Urine Opiates Screen Neg (NEG) Urine Methadone Screen Neg (NEG) Urine Barbiturates Neg (NEG) Urine Phencyclidine Screen Neg (NEG) Urine Amphetamine/Methamphetamine Neg (NEG) Urine Benzodiazepines Screen Neg (NEG) Urine Cocaine Screen Neg (NEG) Urine Cannabinoids Screen Pos (NEG) Urine Ethyl Alcohol Neg (NEG) POC Urine HCG, Qualitative Hcg negative (Negative) White Blood Count 4.1 x10^3/uL (4.0-11.0) Red Blood Count 5.12 x10^6/uL (3.50-5.40) Hemoglobin 15.7 g/dL (12.0-15.5) H Hematocrit 46.3 % (36.0-47.0) Mean Corpuscular Volume 90 fL (79-100) Mean Corpuscular Hemoglobin 31 pg (25-35) Mean Corpuscular Hemoglobin Concent 34 g/dL (31-37) Red Cell Distribution Width 14.5 % (11.5-14.5) Platelet Count 235 x10^3/uL (140-400) Neutrophils (%) (Auto) 70 % (31-73) Lymphocytes (%) (Auto) 25 % (24-48) Monocytes (%) (Auto) 5 % (0-9) Eosinophils (%) (Auto) 0 % (0-3) Basophils (%) (Auto) 0 % (0-3) Neutrophils # (Auto) 2.9 x10^3/uL (1.8-7.7) Lymphocytes # (Auto) 1.0 x10^3/uL (1.0-4.8) Monocytes # (Auto) 0.2 x10^3/uL (0.0-1.1) Eosinophils # (Auto) 0.0 x10^3/uL (0.0-0.7) Basophils # (Auto) 0.0 x10^3/uL (0.0-0.2) Sodium Level 142 mmol/L (136-145) Potassium Level 3.9 mmol/L (3.5-5.1) Chloride Level 106 mmol/L (98-107) Carbon Dioxide Level 27 mmol/L (21-32) Anion Gap 9 (6-14) Blood Urea Nitrogen 9 mg/dL (7-20) Creatinine 0.5 mg/dL (0.6-1.0) L Estimated GFR (Cockcroft-Gault) 141.2 BUN/Creatinine Ratio 18 (6-20) Glucose Level 89 mg/dL (70-99) Calcium Level 8.9 mg/dL (8.5-10.1) Total Bilirubin 0.4 mg/dL (0.2-1.0) Aspartate Amino Transferase (AST) 11 U/L (15-37) L Alanine Aminotransferase (ALT) 20 U/L (14-59) Alkaline Phosphatase 70 U/L (46-116) Total Protein 7.1 g/dL (6.4-8.2) Albumin 3.5 g/dL (3.4-5.0) Albumin/Globulin Ratio 1.0 (1.0-1.7) Salicylates Level 6.7 mg/dL (2.8-20.0) Salicylate Last Dose Date Salicylate Last Dose Time Acetaminophen Level < 2 mcg/ml (10-30) L Acetaminophen Last Dose Date Acetaminophen Last Dose Time Ethyl Alcohol Level < 10 mg/dL (0-10) Urine Collection Type Unknown Urine Color Yellow Urine Clarity Clear Urine pH 7.0 (<5.0-8.0) Urine Specific Schurz <=1.005 (1.000-1.030) Urine Protein Negative mg/dL (NEG-TRACE) Urine Glucose (UA) Negative mg/dL (NEG) Urine Ketones (Stick) Negative mg/dL (NEG) Urine Blood Trace (NEG) Urine Nitrite Negative (NEG) Urine Bilirubin Negative (NEG) Urine Urobilinogen Dipstick 0.2 mg/dL (0.2 mg/dL) Urine Leukocyte Esterase Negative (NEG) Urine RBC 0 /HPF (0-2) Urine WBC Occ /HPF (0-4) Urine Squamous Epithelial Cells Mod /LPF Urine Bacteria Few /HPF (0-FEW) Urine Mucus Slight /LPF Test 10/15/20 00:31 SARS-CoV-2 Antigen (Rapid) Negative (NEGATIVE) Laboratory Tests 10/14/20 23:45 Laboratory Tests 10/14/20 23:45 Vital Signs: Vital Signs Date Time Temp Pulse Resp B/P (MAP) Pulse Ox O2 Delivery O2 Flow Rate FiO2 10/15/20 04:00 56 19 119/75 (90) 99 Room Air 10/15/20 03:00 98.8 98.8 EKG: EKG: [] Radiology/Procedures: Radiology/Procedures: [] Course & Med Decision Making: Course & Med Decision Making Pertinent Labs and Imaging studies reviewed. (See chart for details) [] Patient was evaluated for chief complaint. Work-up consisted of laboratory analysis. Patient was evaluated by the psychiatric councilman. Plan is to find placement for inpatient psych. Pelvic exam performed. Cultures pending. Patient allergic to Rocephin and Zithromax. Treated with Doxy. Accepted to [facility]-- Dr Gonzalez. Otilia Disclaimer: Otilia Disclaimer: This electronic medical record was generated, in whole or in part, using a voice recognition dictation system. Departure Departure Impression: Primary Impression: Depressed Additional Impression: Vaginal discharge Disposition: 02 SHORT TERM HOSPITAL ([facility]) Condition: STABLE Referrals: NEIDA AUGUSTINE MD (PCP) Scripts Doxycycline Hyclate (DOXYCYCLINE HYCLATE) 100 Mg Capsule 1 CAP PO BID, #20 CAP Prov: LILY JAIMES DO 10/15/20 LILY JAIMES DO Oct 15, 2020 04:17
[2020-10-15] MEDS ORDERED: DOXYCYCLINE HYCLATE 100 MG TABLET PO ONE (04:30)
[2020-10-15 06:30] VITALS: BP 109/57
[2020-10-15] MEDS ORDERED: DOXY100C3 PO (20:49)
[2020-10-17 00:17] LABS: GC PROBE Negative (Negative)
== END 2020-10-15 07:06 ==
LOC: ER 21:05
DX: F32.9 Major depressive disorder, single episode, unspecified (principal); Z20.822 Contact with and (suspected) exposure to COVID-19; N89.8 Other specified noninflammatory disorders of vagina; R30.0 Dysuria; F17.200 Nicotine dependence, unspecified, uncomplicated; Z88.1 Allergy status to other antibiotic agents; Z91.040 Latex allergy status
CPT/HCPCS: 36415; 80053; 80307; 80329; 81001; 81025; 85025; 87426; 87491; 87591; 99285; G0480

== ENCOUNTER 2021-05-29 09:12 | Emergency (ER) | payer SELFPAY ==
[~2021-05-29] VITALS: Ht 160 cm; Wt 94.3 kg
[~2021-05-29 09:12] MED LIST changes: +CYCL10TA19 PO; -CYCL10TA2 PO; +DOXY100C3 PO; -LEVO500T8 PO; +LEVO500T9 PO
[2021-05-29] MEDS ORDERED: ONDANSETRON PF 4 MG/2 ML VIAL. IVP ONE (09:45)
[2021-05-29] MEDS ORDERED: FAMOTIDINE 20 MG/2 ML VIAL IVP ONE ×2 (09:45→11:15)
[2021-05-29] MEDS ORDERED: IV NORMAL SALINE 1000ML BAG 1,000 ML IV SCH (09:45)
[2021-05-29] MEDS ORDERED: fentaNYL PF VIAL 100 MCG/2 ML VIAL IVP ONE (09:45)
--- NOTE | 2021-05-29 09:56 | PHYS DOC ---
Past Medical History Past Medical History: Pneumonia, Other Additional Past Medical Histor: right ankle fx,SEPSIS,PYELONEPHRITIS,CHRONIC LEG PAIN,COVID-/ Past Surgical History: Cholecystectomy, Other Additional Past Surgical Histo: UMBILICAL HERNIA Smoking Status: Current Every Day Smoker Additional Information: 1 PPD Alcohol Use: None Drug Use: Marijuana General Adult EDM: Chief Complaint: FLU SYMPTOM HPI: HPI: Patient is a 36 year old female who presents with 3 days of burning aching abdominal pain that she states radiates up into the chest with cough, nausea, vomiting and fever. Patient states that she received only 1 Covid vaccine because 3 days later she was diagnosed with pneumonia and feels that the vaccine gave her pneumonia. Patient has a history of Covid in March 2021, pneumonia, smoking, chronic leg pain, pyelonephritis, cholecystectomy, sepsis, umbilical hernia, ankle fracture. She denies shortness of breath, headache, dizziness, nasal congestion, numbness or tingling, focal weakness, vision change, diarrhea, constipation, syncope. Patient rates her pain an 8 out of 10 at this time. Patient states she last took ibuprofen 3 hours prior to arrival. Review of Systems: Review of Systems: Constitutional: + fever or +chills. [] Eyes: Denies change in visual acuity. [] HENT: Denies nasal congestion or sore throat. [] Respiratory: + cough or denies shortness of breath. [] Cardiovascular: Denies chest pain or edema. [] GI: + abdominal pain, +nausea, +vomiting, denies bloody stools or diarrhea. [] : Denies dysuria. [] Musculoskeletal: Denies back pain or joint pain. [] Integument: Denies rash. [] Neurologic: Denies headache, focal weakness or sensory changes. [] Endocrine: Denies polyuria or polydipsia. [] Lymphatic: Denies swollen glands. [] Psychiatric: Denies depression or anxiety. [] Heart Score: C/O Chest Pain: Yes HEART Score for Chest Pain: HEART Score for Chest Pain Response (Comments) Value History Slighlty/Non-Suspicious 0 ECG Normal 0 Age < 45 0 Risk Factors 1 or 2 Risk Factors 1 Troponin < Normal Limit 0 Total 1 Risk Factors: Risk Factors: DM, Current or recent (<one month) smoker, HTN, HLP, family history of CAD, obesity. Risk Scores: Score 0 - 3: 2.5% MACE over next 6 weeks - Discharge Home Score 4 - 6: 20.3% MACE over next 6 weeks - Admit for Clinical Observation Score 7 - 10: 72.7% MACE over next 6 weeks - Early Invasive Strategies Current Medications: Current Medications Medications (Trade) Dose Ordered Sig/Hermes Start Time Stop Time Status Last Admin Dose Admin Famotidine (Pepcid Vial) 20 mg 1X ONCE 05/29/21 09:45 05/29/21 09:46 UNV Fentanyl Citrate (Fentanyl 2ml Vial) 25 mcg 1X ONCE 05/29/21 09:45 05/29/21 09:46 UNV Ondansetron HCl (Zofran) 4 mg 1X ONCE 05/29/21 09:45 05/29/21 09:46 UNV Sodium Chloride 1,000 ml @ 1,000 mls/hr Q1H 05/29/21 09:45 05/29/21 10:44 UNV Allergies: Allergies: Allergies Coded Allergies Type Severity Reaction Last Updated Verified cephalexin Allergy Intermediate 12/05/17 Yes latex Allergy Intermediate 12/05/17 Yes ketorolac Allergy Unknown UNKNOWN 05/29/21 Yes azithromycin Adverse Reaction Mild Nausea 08/07/20 Yes Physical Exam: PE: Constitutional: Well developed, well nourished, no acute distress, non-toxic appearance. [] HENT: Normocephalic, atraumatic, bilateral external ears normal, oropharynx moist, no oral exudates, nose normal. [] Eyes: PERRLA, EOMI, conjunctiva normal, no discharge. [] Neck: Normal range of motion, no tenderness, supple, no stridor. [] Cardiovascular:Heart rate regular rhythm, no murmur [] Lungs & Thorax: Bilateral upper breath sounds clear and lower diminished to auscultation [] Abdomen: Bowel sounds normal, soft, generalized tenderness, no masses, no pulsatile masses. [] Skin: Warm, dry, no erythema, no rash. [] Back: No tenderness, no CVA tenderness. [] Extremities: No tenderness, no cyanosis, no clubbing, ROM intact, no edema. [] Neurologic: Alert and oriented X 3, normal motor function, normal sensory function, no focal deficits noted. [] Psychologic: Affect normal, judgement normal, mood normal. [] Current Patient Data: Labs: Laboratory Tests Test 05/29/21 09:30 POC Urine HCG, Qualitative Hcg negative (Negative) Vital Signs: Vital Signs Date Time Temp Pulse Resp B/P (MAP) Pulse Ox O2 Delivery O2 Flow Rate FiO2 05/29/21 09:17 98.7 85 17 121/66 (84) 94 Room Air 98.7 EKG: EK and read by Dr Cornell as Sinus Rhythm and no STEMI Radiology/Procedures: Radiology/Procedures: [] Impression: [id number] [place] [address] IMAGING REPORT Signed PATIENT: KARELY THOMPSON ACCOUNT: [id number] : 1985 LOCATION: ER AGE: 36 SEX: F EXAM STATUS: REG ER ORD. PHYSICIAN: JAMIL LAGUNAS APRN REASON: COUGH, FEVER, ABD PAIN, N,V PROCEDURE: PORTABLE CHEST 1V EXAMINATION: Chest radiograph. VIEWS: Single AP view of the chest COMPARISON: 08/05/2020 CT chest INDICATION:36 years, Female, cough, fever, abdominal pain. FINDINGS: Stable cardiomediastinal silhouette. No focal consolidation. No pleural effusion or pneumothorax. No acute osseous process. IMPRESSION: No radiographic evidence of acute cardiopulmonary process. Electronically signed by: Bony Ann DO (05/29/2021 10:05 AM) [facility] DICTATED and SIGNED BY: BONY ANN DO DATE: 05/29/21 [id number] [id number] [place] [address] IMAGING REPORT Signed PATIENT: KARELY THOMPSON ACCOUNT: [id number] : 1985 LOCATION: ER AGE: 36 SEX: F EXAM STATUS: REG ER ORD. PHYSICIAN: JAMIL LAGUNAS APRN REASON: ABD PAIN, N,V PROCEDURE: CT ABD PELV W/ IV CONTRST ONLY Study: CT abdomen/pelvis with intravenous contrast Indication: Abdominal pain. Nausea and vomiting. Comparison: 08/05/2020 Technique: Helical CT imaging performed of the abdomen and pelvis after the intravenous administration of 75 cc Omnipaque 300 contrast. Sagittal and coronal reformats were obtained. One or more of the following individualized dose reduction techniques were utilized for this examination: 1. Automated exposure control 2. Adjustment of the mA and/or kV according to patient size 3. Use of iterative reconstruction technique. Findings: Motion degraded assessment of the lower lungs. There are a few faint areas of reticular densities such as at the medial right middle lobe but no confluent infiltrate to indicate pneumonia. Unremarkable liver which is similar in size to the prior. Surgically absent gallbladder. Unchanged biliary tree. Within normal limits pancreas and adrenal glands. Upper limits of normal size of the spleen which is slightly larger from the comparison. Homogeneous renal parenchymal enhancement. No collecting system dilatation. Unremarkable bladder. Unremarkable reproductive organs. Moderate constipation. Normal appendix. No pathologic dilatation of small bowel. Unremarkable stomach. Nonaneurysmal aorta. No lymphadenopathy by size criteria. Sequela of ventral abdominal hernia repair. No recurrent hernia or new hernia elsewhere. No acute or aggressive osseous process. Impression: 1. No acute abnormality identified throughout the abdomen or pelvis. 2. Upper limits of normal size of the spleen slightly larger from the 08/05/2020 comparison. Electronically signed by: SEKOU SEGURA MD (05/29/2021 11:24 AM) [id number] DICTATED and SIGNED BY: SEKOU SEGURA MD DATE: 05/29/21 [id number] 0 Course & Med Decision Making: Course & Med Decision Making Pertinent Labs and Imaging studies reviewed. (See chart for details) COVID-19 CRITERIA: The patient was evaluated during the global COVID-19 pandemic, and that diagnosis was suspected/considered upon their initial presentation. Their evaluation, treatment and testing was consistent with current guidelines for patients who present with complaints or symptoms that may be related to COVID-19. See HPI. Alert and oriented x4. Ambulatory with a steady gait. Speaks in full clear sentences. Abdomen is soft with generalized tenderness. No rashes. No extremity edema. Skin pink warm and dry. Vital signs are within normal limits. No respiratory distress. Lungs are clear in upper lobes and diminished in lower lobes. No CVA tenderness. EKG showed a sinus rhythm and no STEMI. Patient was successfully p.o. challenge. Chest x-ray shows no acute findings. CT showed some spleen enlargement. Patient is positive for influenza A. [] Otilia Disclaimer: Otilia Disclaimer: This electronic medical record was generated, in whole or in part, using a voice recognition dictation system. COVID-19 Patient Risks: Age 65 or older: No Sign of co-morbidity: Yes Exp to person + for COVID: No Exp to PUI: No Travel from affected area: No Lower respiratory symptoms: Yes Fever: Yes Other: Yes (N,V) PPE Use: Full PPE with N95 mask or PAPR: Yes Departure Departure Impression: Primary Impression: Influenza A Additional Impression: Spleen enlargement Disposition: HOME / SELF CARE / HOMELESS Condition: STABLE Referrals: NEIDA AUGUSTINE MD (PCP) Patient Instructions: Enlarged Spleen, Influenza A (H1N1) Additional Instructions: Follow-up with your primary care provider. Take medication as prescribed and with food. Slowly advance her diet. Make sure you are drinking plenty of fluid s to stay hydrated. Patient also has a enlarged spleen and you should follow up with a primary care physician to monitor this. Also due to a enlarged spleen if you ever get hit in the abdomen hard you need to be seen in the emergency to make sure your spleen does not burst. Also do not do any intense activity or play any sports due to this. Take Tylenol or ibuprofen to help with pain. Scripts Ondansetron (ONDANSETRON ODT) 4 Mg Tab.rapdis 1 TAB PO PRN Q6-8HRS, #16 TAB Prov: JAMIL LAGUNAS APRN 05/29/21 JAMIL LAGUNAS APRN May 29, 2021 09:56
[2021-05-29] MEDS ORDERED: IOHEXOL 300 MG/ML 100ML VIAL. IV ONE (10:00)
--- NOTE | 2021-05-29 10:07 | RAD ---
EXAMINATION: Chest radiograph. VIEWS: Single AP view of the chest COMPARISON: 08/05/2020 CT chest INDICATION:36 years, Female, cough, fever, abdominal pain. FINDINGS: Stable cardiomediastinal silhouette. No focal consolidation. No pleural effusion or pneumothorax. No acute osseous process. IMPRESSION: No radiographic evidence of acute cardiopulmonary process. Electronically signed by: Phil Ann DO (05/29/2021 10:05 AM) [facility]
[2021-05-29 10:33] LABS: BASO % 0 % (0-3); EOS % 0 % (0-3); HEMATOCRIT 40.8 % (36.0-47.0); HEMOGLOBIN 14.1 g/dL (12.0-15.5); LYMPH # 0.3 x10^3/uL (1.0-4.8); LYMPH % 10 % (24-48); MEAN CORPUSCULAR HEMOGLOBIN 30 pg (25-35); MEAN CORPUSCULAR HGB CONC 35 g/dL (31-37); MEAN CORPUSCULAR VOLUME 86 fL (79-100); MONO # 0.3 x10^3/uL (0.0-1.1); MONO % 10 % (0-9); NEUT # 2.8 x10^3/uL (1.8-7.7); NEUT % 80 % (31-73); PLATELET COUNT 146 x10^3/uL (140-400); RED BLOOD COUNT 4.75 x10^6/uL (3.50-5.40); RED CELL DISTRIBUTION WIDTH 12.8 % (11.5-14.5); WHITE BLOOD COUNT 3.5 x10^3/uL (4.0-11.0)
[2021-05-29 10:43] LABS: CALCIUM 8.9 mg/dL (8.5-10.1); CREATININE 0.5 mg/dL (0.6-1.0); GFR 140.4; POTASSIUM 3.8 mmol/L (3.5-5.1)
[2021-05-29 10:48] LABS: ALBUMIN 3.2 g/dL (3.4-5.0); ALBUMIN/GLOBULIN RATIO 0.8 (1.0-1.7); TOTAL BILIRUBIN 0.3 mg/dL (0.2-1.0)
[2021-05-29 10:53] LABS: INFLUENZA B PATIENT NEGATIVE (NEGATIVE)
[2021-05-29 10:56] LABS: INFLUENZA A PATIENT POSITIVE (NEGATIVE)
[2021-05-29 10:58] LABS: BILIRUBIN,URINE NEGATIVE (NEG); CLARITY,URINE CLEAR; COLOR,URINE YELLOW; PROTEIN,URINE TRACE mg/dL (NEG-TRACE)
[2021-05-29 10:59] LABS: BACTERIA,URINE MODERATE /HPF (0-FEW); NITRITE,URINE NEGATIVE (NEG); UROBILINOGEN,URINE 0.2 mg/dL (0.2 mg/dL); WBC,URINE OCC /HPF (0-4)
[2021-05-29] MEDS ORDERED: PROCHLORPERAZINE 10 MG/2 ML VIAL. IV ONE (11:15)
[2021-05-29] MEDS ORDERED: IV NORMAL SALINE 1000ML BAG 1,000 ML IV ONE (11:15)
[2021-05-29] MEDS ORDERED: ACETAMINOPHEN 500 MG TABLET PO ONE (11:15)
--- NOTE | 2021-05-29 11:26 | RAD ---
Study: CT abdomen/pelvis with intravenous contrast Indication: Abdominal pain. Nausea and vomiting. Comparison: 08/05/2020 Technique: Helical CT imaging performed of the abdomen and pelvis after the intravenous administratio n of 75 cc Omnipaque 300 contrast. Sagittal and coronal reformats were obtained. One or more of the following individualized dose reduction techniques were utilized for this examinat ion: 1. Automated exposure control 2. Adjustment of the mA and/or kV according to patient size 3. Use of iterative reconstruction technique. Findings: Motion degraded assessment of the lower lungs. There are a few faint areas of reticular densities suc h as at the medial right middle lobe but no confluent infiltrate to indicate pneumonia. Unremarkable liver which is similar in size to the prior. Surgically absent gallbladder. Unchanged bi liary tree. Within normal limits pancreas and adrenal glands. Upper limits of normal size of the sple en which is slightly larger from the comparison. Homogeneous renal parenchymal enhancement. No collec ting system dilatation. Unremarkable bladder. Unremarkable reproductive organs. Moderate constipation. Normal appendix. No pathologic dilatation of small bowel. Unremarkable stomach . Nonaneurysmal aorta. No lymphadenopathy by size criteria. Sequela of ventral abdominal hernia repair. No recurrent hernia or new hernia elsewhere. No acute or aggressive osseous process. Impression: 1. No acute abnormality identified throughout the abdomen or pelvis. 2. Upper limits of normal size of the spleen slightly larger from the 08/05/2020 comparison. Electronically signed by: SEKOU SEGURA MD (05/29/2021 11:24 AM) [id number]
[2021-05-29 11:54] LABS: AMPHETAMINE/METHAMPHETAMINE NEG (NEG); BARBITURATES NEG (NEG); BENZODIAZEPINES NEG (NEG); CANNABINOIDS POS (NEG); COCAINE NEG (NEG); METHADONE NEG (NEG); OPIATES NEG (NEG); PHENCYCLIDINE NEG (NEG)
[2021-05-29] MEDS ORDERED: ONDA4TAB12 PO (12:17)
[2021-05-29 12:43] LABS: MONONUCLEOSIS PATIENT NEGATIVE (NEGATIVE)
[2021-05-29 12:54] VITALS: BP 129/81
[2021-05-29 13:55] LABS: % BANDS 16 % (0-9); % LYMPHS 6 % (24-48); % MONOS 14 % (0-10); % SEGS 64 % (35-66); PLT ESTIMATE ADEQUATE (ADEQUATE)
--- NOTE | 2021-05-30 00:58 | EKG ---
[facility] [address] [place] [address] Test Date: 2021-05-29 Test Time: 09:43:54 Pat Name: KARELY THOMPSON Department: Room: Gender: F Medical Equipment Sales: : 1985 Requested By: JAMIL LAGUNAS Order Number: [id number] Reading MD: Chicho West MD Measurements Intervals [place] Rate: 72 P: 25 MT: 144 QRS: 12 QRSD: 82 T: 22 QT: 356 QTc: 391 Interpretive Statements SINUS RHYTHM Electronically Signed On 05-31-2021 10:15:39 CLASSIFICATION OFFICER by Chicho West MD
== END 2021-05-29 13:06 | disposition home or self-care (01) ==
LOC: ER 09:12
DX: J09.X2 Influenza due to identified novel influenza A virus with other respiratory manifestations (principal); R16.1 Splenomegaly, not elsewhere classified; Z20.822 Contact with and (suspected) exposure to COVID-19; F17.200 Nicotine dependence, unspecified, uncomplicated; Z88.1 Allergy status to other antibiotic agents; Z88.6 Allergy status to analgesic agent; Z91.040 Latex allergy status
CPT/HCPCS: 36415; 71045; 74177; 80053; 80307; 81001; 81025; 83690; 84484; 85007; 85025; 86308; 87086; 87428; 93005; 96361; 96374; 96375; 96376; 99285; J0780; J2405; J3010; J3490; J7030; Q9967